=== PATIENT | female | born 1955 | race Caucasian/White ===

== ENCOUNTER → 2016-10-25 | Outpatient (CLI) | payer BC ==
[~2016-10-25] MED LIST: ALBU1AER9 INH; ASPCH81X PO; BECL0.3A INH; BNC40 PO; CHOL100010 PO; CIPR-255 PO; FLUT0.15 NAE; HYDR-5688 PO; LANS30CA12 PO; NTRSL3 UT; NTRSLP4 SL; PRT40 PO; SERT-234 PO
[2016-10-25 11:53] LABS: BASO % 0.5 %; BASO ABS # 0.03 K/uL (0-0.2); COMPLETE YES; EOS % 2.2 %; IG% 0.2 %; LYMPH % 27.2 %; LYMPH ABS # 1.59 K/uL (1.2-3.4); MEAN CELL VOLUME 92.6 fL (80-100); MEAN CORPUSCULAR HEMOGLOBIN 31.6 pg (25-34); MEAN CORPUSCULAR HGB CONC 34.1 g/dl (32-36); MEAN PLATELET VOLUME 10.3 fL (7.4-10.4); MONO % 6.2 %; NEUT % 63.7 %; PLATELET COUNT 243 K/uL (130-400); RED BLOOD COUNT 4.21 M/uL (4.2-5.4); WHITE BLOOD COUNT 5.84 K/uL (4.8-10.8)
[2016-10-25 12:09] LABS: ALT/SGPT 39 U/L (12-78); AST/SGOT 28 U/L (15-37); BLOOD UREA NITROGEN 17 mg/dl (7-18); BUN/CREATININE RATIO 15.4 (10-20); CALCIUM 8.8 mg/dl (8.5-10.1); CARBON DIOXIDE 21 mmol/L (21-32); CHLORIDE 110 mmol/L (98-107); GLUCOSE 100 mg/dl (70-99); POTASSIUM 4.3 mmol/L (3.5-5.1); SODIUM 141 mmol/L (136-145)
[2016-10-25 12:11] LABS: ALKALINE PHOSPHATASE 108 U/L (45-117)
== END | disposition home or self-care (01) ==
LOC: C.LAB1850 10:36
PROVIDERS: ATTEND Surgery
DX: Z01.812 Encounter for preprocedural laboratory examination (principal); K85.90 Acute pancreatitis without necrosis or infection, unspecified; K82.8 Other specified diseases of gallbladder

== ENCOUNTER 2016-11-01 07:50 | Inpatient (IN) | payer BC ==
[2016-10-25 14:02] VITALS: BMI 29.0
[~2016-11-01] VITALS: Ht 160 cm; Wt 76.4 kg
[2016-11-01] VITALS (8 sets, daily range): BP systolic 116–166; BP diastolic 72–88; PULSE 66–85; TEMP 36.3–36.8; O2SAT 93–98; Ht 160 cm; Wt 76.4 kg
[~2016-11-01 07:50] MED LIST changes: -CIPR-255 PO; +CIPROFLOXACIN / D5W 400 MG IV SCH; -HYDR-5688 PO; +LACTATED RINGER'S 1000ML 1,000 ML IV SCH; -NTRSLP4 SL; -PRT40 PO
--- NOTE | 2016-11-01 08:03 | History & Physical Bridge Note ---
H&P Re-Evaluation Bridge Note: I have examined the patient, reviewed the History & Physical and in the interval since the performance of the History & Physical I have noted the following changes of clinical significance: No changes noted
[2016-11-01] MEDS ORDERED: FENTANYL CITRATE INJ 50 MCG/1 ML 2 ML VIAL ONE ×3 (09:28→12:09)
[2016-11-01] MEDS ORDERED: ONDANSETRON INJ 2 MG/ML 2 ML VIAL ONE (09:28)
[2016-11-01] MEDS ORDERED: MIDAZOLAM HCL 1 MG/ML 2ML VIAL ONE (09:28)
[2016-11-01] MEDS ORDERED: ROCURONIUM BROMIDE 10 MG/ML 5 ML VIAL ONE (09:28)
[2016-11-01] MEDS ORDERED: LIDOCAINE HCL 2% 2 ML VIAL (20MG/ML) ONE (09:28)
[2016-11-01] MEDS ORDERED: DEXAMETHASONE SOD INJ 4 MG/ML VIAL ONE (09:28)
[2016-11-01] MEDS ORDERED: PROPOFOL IV EMULSION 10 MG/ML 20 ML VIAL IV ONE (09:28)
[2016-11-01] MEDS ORDERED: BUPIVACAINE 0.5 % 5 MG/1 ML MPF 30ML VIAL ONE (09:47)
[2016-11-01] MEDS ORDERED: EpHEDrine SULFATE 50MG/5ML SYR ONE (10:30)
[2016-11-01] MEDS ORDERED: NEOSTIGMINE METHYLSULFATE 5 MG/5 ML SYR ONE (11:01)
[2016-11-01] MEDS ORDERED: GLYCOPYRROLATE INJ 0.2 MG/ML VIAL ONE (11:01)
--- NOTE | 2016-11-01 11:10 | [facility] Post Operative Brief Note ---
Immediate Operative Summary Operative Date Nov 01, 2016. Pre-Operative Diagnosis Pancreatitis; sludge in gallbladder Post-Operative Diagnosis Same as preop, including chronic cholecystitis, adhesions Procedure(s) Performed Laparoscopic cholecystectomy Surgeon Dr. Amador Mending Carrier Surgeon(s) Omid Cleary PA-C Estimated Blood Loss 30 cc Findings adhesions of omentum to gb and liver Specimens A: gallbladder Drains #[address] Rd KIARA to subhepatic space Anesthesia gen Complication(s) None Disposition Recovery Room / PACU
[2016-11-01] MEDS ORDERED: HYDROCODONE/ACETAMOPHEN 5/325MG TAB PO PRN (11:15)
[2016-11-01] MEDS ORDERED: ALBUTEROL HFA 8 GM INHALER INH PRN (11:15)
[2016-11-01] MEDS ORDERED: MoRPHine SULFATE 2 MG/ML CARP IV PRN (11:15)
[2016-11-01] MEDS ORDERED: NITROGLYCERIN 0.3 MG/1 TAB 100 TAB BTL UT PRN (11:15)
[2016-11-01] MEDS ORDERED: PROMETHAZINE HCL INJ 25 MG in SODIUM CHLORIDE 0.9% 50ML 50 ML IV PRN (11:15)
[2016-11-01] MEDS ORDERED: ONDANSETRON INJ 2 MG/ML 2 ML VIAL IV PRN ×2 (11:15→12:15)
--- NOTE | 2016-11-01 11:37 | OPERATIVE REPORT ---
DATE OF OPERATION: 11/01/2016 NAME OF OPERATION: Laparoscopic cholecystectomy. PREOPERATIVE DIAGNOSIS: Gallstone pancreatitis. POSTOPERATIVE DIAGNOSIS: Same, with chronic cholecystitis. STAFF SURGEON: Dr. Amador. PARTS FABRICATOR: Alan Aguilar PA-C. PROCEDURE: The patient was brought in the operating room and placed on the operating room table in a supine position. Her abdomen was prepped and draped in usual fashion. Pneumatic stockings and orogastric tube were placed. 0.5% plain Marcaine was used to anesthetize all incisions. Incision was made above the umbilicus, carrying dissection down to the fascia, placing a Veress needle producing a pneumoperitoneum. An 11 mm port was placed at the umbilicus and then under visualization, three 5 mm ports placed, 1 cephalad and 2 laterally. Under visualization the gallbladder was grasped. There were adhesions of the omentum to the gallbladder and to the liver. These were taken down both bluntly and sharply. Gallbladder was aspirated of bile. Dissection was carried out at the nina hepatis. The patient did have significant adhesions of the wall of the gallbladder to the liver, other than just the liver bed, in the lateral area. The cystic duct was identified, clipped and transected. The cystic artery identified, clipped and transected and then the gallbladder dissected away from the liver bed. She did show evidence of chronic scarring. The gallbladder was placed into an Endobag and then removed through the umbilical site. The patient did have some bleeding from the liver bed and areas of adhesions. These were gently cauterized and after irrigation and hemostasis, a 15 round Al-Mendez drain was placed through the lateral 5 mm port into the subhepatic space, secured to the skin using 3-0 nylon suture. All ports were then removed. The fascia at the umbilicus closed using interrupted 0 Vicryl suture. Skin reapproximated using 4-0 nylon suture. The patient was transferred to the recovery room in stable condition. I attest to the content of the Intraoperative Record and any orders documented therein. Any exceptio ns are noted below.
--- NOTE | 2016-11-01 11:49 | Discharge Instructions ---
Discharge Instructions Admission Reason for Admission: Gallbladder Sludge Discharge Discharge Diagnosis / Problem: chronic cholecystitis Discharge Goals Goal(s): Decrease discomfort, Improve function, Improve disease control Activity Recommendations Activity Limitations: as noted below Lifting Limitations: no more than 10 pounds Exercise/Sports Limitations: until after follow-up appointment May Resume Sexual Activity: when tolerated Shower/Bathe: tomorrow (may shower) Driving or Machine Use: resume 3 days after discharge SPECIAL CARE INSTRUCTIONS: * Cover incisions and change daily for comfort/drainage. * Empty drain 2-3 times per day and record. * May use ibuprofen for pain as tolerated. * Expect some swelling and bruising. Call your doctor if: * Temperature above 101 degrees * Pain not relieved by pain medicine ordered * There is increased drainage or redness from any incision * You have any unanswered questions or concerns [phone]. FOLLOW UP VISIT: If not already scheduled, please call the office for a follow-up visit. for next Sun/ or Sun- drain removal OFFICE PHONE NUMBER: Dr. Amador Office . Current Hospital Diet Patient's current hospital diet: Regular Diet Discharge Diet Recommended Diet: Regular Diet Procedures Procedures Performed: Laparoscopic cholecystectomy Pending Studies Studies pending at discharge: no Laboratory Results Lipid Panel Test 08/04/16 00:10 Range/Units Triglycerides Level 206 H 0-150 mg/dl Medical Emergencies . Who to Call and When: Medical Emergencies: If at any time you feel your situation is an emergency, please call 911 immediately. . Non-Emergent Contact Non-Emergency issues call your: Primary Care Provider, Surgeon . "Provider Documentation" section prepared by Emiliano Amador. VTE Core Measure Inpt VTE Proph given/why not?: SCD's
[2016-11-01] MEDS ORDERED: HYDR-5688 PO (11:50)
[2016-11-01] MEDS ORDERED: CIPR-255 PO (11:50)
[2016-11-01] MEDS ORDERED: EpHEDrine SULFATE INJ 50 MG/ML AMP IV PRN (12:15)
[2016-11-01] MEDS ORDERED: FENTANYL CITRATE INJ 50 MCG/1 ML 2 ML VIAL IV PRN (12:15)
[2016-11-01] MEDS ORDERED: ATROPINE SULFATE 0.1 MG/ML 5ML SYR IV PRN (12:15)
--- NOTE | 2016-11-01 12:33 | Anesthesiology Progress Note ---
Anesthesia Post Op Note Date & Time Nov 01, 2016 at 12:33 Vital Signs Pain Intensity: 2 Vital Signs Past 12 Hours Date Time Temp Pulse Resp B/P Pulse Ox O2 Delivery O2 Flow Rate FiO2 11/01/16 11:51 36.3 78 16 118/60 99 Nasal Cannula 2 11/01/16 11:50 80 20 129/65 100 Mask 2 11/01/16 11:40 80 16 131/67 100 Mask 10 11/01/16 11:30 83 16 127/62 99 Mask 10 11/01/16 11:22 36.1 82 16 143/80 96 Mask 10 11/01/16 08:10 36.4 85 16 136/88 95 Room Air Notes Mental Status: alert / awake / arousable, participated in evaluation Pt Amnestic to Procedure: Yes Nausea / Vomiting: adequately controlled Pain: adequately controlled Airway Patency, RR, SpO2: stable & adequate BP & HR: stable & adequate Hydration State: stable & adequate Anesthetic Complications: no major complications apparent
[2016-11-01] MEDS: LACTATED RINGER'S 1000ML 1,000 ML IV SCH (13:57)
[2016-11-01] MEDS: MoRPHine SULFATE 4 MG/ML 1 ML CARP\\VIAL IV PRN ×3 (13:57→23:22)
[2016-11-01] MEDS ORDERED: IV FLUIDS COMPLETED PRN (14:15)
[2016-11-01 16:18] LABS: HEMATOCRIT 35.7 % (37-47)
--- NOTE | 2016-11-01 16:43 | Progress Note ---
Subjective Date of Service: Nov 01, 2016. Subjective Pt evaluation today including: conversation w/ patient, physical exam, chart review, lab review, review of inpatient medication list seen for post op med management hx CAD, HTN, hyperlipid, EtOH abuse ("i'm a beer drinker though") notes only c/o at this time is abdominal pain in area from surgery - but tolerable, pain meds help. no cp no sob. no other active complaints Problem List Medical Problems: (1) Pancreatitis Status: Acute (2) Precordial chest pain Status: Acute (3) Precordial chest pain Status: Acute (4) Unstable angina Status: Acute Review of Systems ros otherwise negative except for as above Objective Vital Signs Date Time Temp Pulse Resp B/P Pulse Ox O2 Delivery O2 Flow Rate FiO2 11/01/16 16:04 36.6 74 18 116/73 93 Nasal Cannula 2.0 11/01/16 15:03 36.4 70 18 123/76 94 Nasal Cannula 2.0 11/01/16 14:05 73 20 134/82 98 Nasal Cannula 2.0 11/01/16 13:35 36.3 79 19 117/72 95 Nasal Cannula 2.0 11/01/16 13:05 96 Nasal Cannula 2.0 11/01/16 13:05 36.4 73 16 119/74 96 Nasal Cannula 2.0 11/01/16 13:05 Nasal Cannula 2.0 11/01/16 12:50 36.3 75 18 120/72 97 Nasal Cannula 2 11/01/16 12:40 36.3 74 16 119/71 97 Nasal Cannula 2 11/01/16 12:30 36.3 89 16 101/70 96 Nasal Cannula 2 11/01/16 12:20 36.3 79 16 109/41 98 Nasal Cannula 2 11/01/16 12:10 36.3 80 16 109/41 100 Nasal Cannula 2 11/01/16 12:00 36.3 80 16 123/67 100 Nasal Cannula 2 11/01/16 11:51 36.3 78 16 118/60 99 Nasal Cannula 2 11/01/16 11:50 80 20 129/65 100 Mask 2 11/01/16 11:40 80 16 131/67 100 Mask 10 11/01/16 11:30 83 16 127/62 99 Mask 10 11/01/16 11:22 36.1 82 16 143/80 96 Mask 10 11/01/16 08:10 36.4 85 16 136/88 95 Room Air Physical Exam General Appearance: no apparent distress Eyes: EOMI ENT: hearing grossly normal Neck: trachea midline Respiratory/Chest: no respiratory distress, no accessory muscle use Extremities: normal range of motion Neurologic/Psychiatric: dancer or choreographer II-XII nml as tested, alert, normal mood/affect Skin: normal color, warm/dry Laboratory Results Last 24 Hours Test 11/01/16 16:10 Hemoglobin 12.4 g/dL Hematocrit 35.7 % Assessment and Plan coronary artery disease, HTN, hyperlipidemia -all stable, continue home med regimen. not on statin due to intolerable side effects EtOH abuse -was fairly defensive pre-emptively about EtOH consumption - even before i asked - she was very forward with talking about how the ER doc during her pancreatitis admission was too quick to blame EtOH. was unable to delve further into consumption without risking destroying rapport. that said, nothing appears acutely decompensated, and likely will be out of hospital before DT's would be an issue. will need to continue to follow clinically, however DVT proph -heparin SQ
[2016-11-01] MEDS ORDERED: CIPROFLOXACIN / D5W 400 MG in PREMIXED IN D5W 200 ML IV SCH (21:00)
[2016-11-02 00:25] VITALS: BP 107/63
--- NOTE | 2016-11-02 05:44 | Surgery Progress Note ---
Surgery Progress Note Date of Service Nov 02, 2016. Subjective taking some IV pain meds, itching- thinks may be cipro Objective Vital Signs: Date Time Temp Pulse Resp B/P Pulse Ox O2 Delivery O2 Flow Rate FiO2 11/02/16 00:25 107/63 11/01/16 23:30 Room Air 11/01/16 22:52 36.7 66 16 166/78 93 Room Air 11/01/16 19:24 36.8 75 16 131/72 93 Room Air 11/01/16 16:04 36.6 74 18 116/73 93 Nasal Cannula 2.0 11/01/16 15:30 Room Air 11/01/16 15:03 36.4 70 18 123/76 94 Nasal Cannula 2.0 11/01/16 14:05 73 20 134/82 98 Nasal Cannula 2.0 11/01/16 13:35 36.3 79 19 117/72 95 Nasal Cannula 2.0 11/01/16 13:05 96 Nasal Cannula 2.0 11/01/16 13:05 36.4 73 16 119/74 96 Nasal Cannula 2.0 11/01/16 13:05 Nasal Cannula 2.0 11/01/16 12:50 36.3 75 18 120/72 97 Nasal Cannula 2 11/01/16 12:40 36.3 74 16 119/71 97 Nasal Cannula 2 11/01/16 12:30 36.3 89 16 101/70 96 Nasal Cannula 2 11/01/16 12:20 36.3 79 16 109/41 98 Nasal Cannula 2 11/01/16 12:10 36.3 80 16 109/41 100 Nasal Cannula 2 11/01/16 12:00 36.3 80 16 123/67 100 Nasal Cannula 2 11/01/16 11:51 36.3 78 16 118/60 99 Nasal Cannula 2 11/01/16 11:50 80 20 129/65 100 Mask 2 11/01/16 11:40 80 16 131/67 100 Mask 10 11/01/16 11:30 83 16 127/62 99 Mask 10 11/01/16 11:22 36.1 82 16 143/80 96 Mask 10 11/01/16 08:10 36.4 85 16 136/88 95 Room Air General Appearance: no apparent distress Respiratory/Chest: no respiratory distress Abdomen: soft (drain- serosang) Incision(s): dry Laboratory Results: Results Past 24 Hours Test 11/01/16 16:10 11/02/16 05:00 Range/Units Hemoglobin 12.4 12.0-16.0 g/dL Hematocrit 35.7 37-47 % Assessment & Plan 11/02/16- s/p lap katelyn- h/o pancreatitis- had signif adhesions- drain in place d/c cipro, cont other IV meds
[2016-11-02 05:53] LABS: HEMATOCRIT 35.5 % (37-47); MEAN CELL VOLUME 92.7 fL (80-100); MEAN CORPUSCULAR HEMOGLOBIN 31.3 pg (25-34); MEAN CORPUSCULAR HGB CONC 33.8 g/dl (32-36); MEAN PLATELET VOLUME 10.2 fL (7.4-10.4); PLATELET COUNT 198 K/uL (130-400); RED BLOOD COUNT 3.83 M/uL (4.2-5.4); WHITE BLOOD COUNT 6.91 K/uL (4.8-10.8)
[2016-11-02 06:17] LABS: BLOOD UREA NITROGEN 9 mg/dl (7-18); BUN/CREATININE RATIO 9.2 (10-20); CARBON DIOXIDE 29 mmol/L (21-32); CHLORIDE 105 mmol/L (98-107); CREATININE 0.95 mg/dl (0.60-1.20); GLUCOSE 82 mg/dl (70-99); POTASSIUM 3.6 mmol/L (3.5-5.1); SODIUM 142 mmol/L (136-145)
[2016-11-02 06:18] LABS: ALT/SGPT 45 U/L (12-78); AST/SGOT 43 U/L (15-37); CALCIUM 8.4 mg/dl (8.5-10.1)
[2016-11-02 06:20] LABS: ALB/GLOB RATIO 1.1 (0.9-2); ALKALINE PHOSPHATASE 81 U/L (45-117)
[2016-11-02] MEDS: LACTATED RINGER'S 1000ML 1,000 ML IV SCH (06:31)
[2016-11-02] MEDS: MoRPHine SULFATE 4 MG/ML 1 ML CARP\\VIAL IV PRN (06:31)
--- NOTE | 2016-11-02 07:48 | Anesthesiology Progress Note ---
Anesthesia Post Op Note Date & Time Nov 02, 2016 at 07:48 Vital Signs Vital Signs Past 12 Hours Date Time Temp Pulse Resp B/P Pulse Ox O2 Delivery O2 Flow Rate FiO2 11/02/16 00:25 107/63 11/01/16 23:30 Room Air 11/01/16 22:52 36.7 66 16 166/78 93 Room Air Notes Mental Status: alert / awake / arousable, participated in evaluation Pt Amnestic to Procedure: Yes Nausea / Vomiting: adequately controlled Pain: adequately controlled Airway Patency, RR, SpO2: stable & adequate BP & HR: stable & adequate Hydration State: stable & adequate Anesthetic Complications: no major complications apparent
[2016-11-02 08:09] VITALS: BP 123/75; PULSE 64; TEMP 36.7; O2SAT 94
--- NOTE | 2016-11-02 08:51 | Hospitalist Progress Note ---
Hospitalist Progress Note Date of Service Nov 02, 2016. (Ana Xavier, BECKY) Subjective Pt evaluation today including: conversation w/ patient, physical exam, chart review, lab review, review of studies, review of inpatient medication list Pain: Minimal PO Intake: Good Voiding: no voiding problems The patient was seen and examined this morning. Pt reports some pain with movement near the incision in RUQ s/p lap katelyn. She is tolerating a diet without difficulty, - flatus, no bowel movement yet. Discussion regarding mobility was encouraged to help bowels. Pt reports eating well balanced diet, drinks 2 beers daily, denies having any withdrawal symptoms such as shaking, mitchell , nausea. Otherwise is anticipating dc home tomorrow. All Other Systems: Reviewed and Negative (other than listed per HPI) (Ana Xavier, BECKY) Objective Vital Signs Date Time Temp Pulse Resp B/P Pulse Ox O2 Delivery O2 Flow Rate FiO2 11/02/16 08:09 36.7 64 19 123/75 94 Room Air 11/02/16 00:25 107/63 11/01/16 23:30 Room Air 11/01/16 22:52 36.7 66 16 166/78 93 Room Air 11/01/16 19:24 36.8 75 16 131/72 93 Room Air 11/01/16 16:04 36.6 74 18 116/73 93 Nasal Cannula 2.0 11/01/16 15:30 Room Air 11/01/16 15:03 36.4 70 18 123/76 94 Nasal Cannula 2.0 11/01/16 14:05 73 20 134/82 98 Nasal Cannula 2.0 11/01/16 13:35 36.3 79 19 117/72 95 Nasal Cannula 2.0 11/01/16 13:05 96 Nasal Cannula 2.0 11/01/16 13:05 36.4 73 16 119/74 96 Nasal Cannula 2.0 11/01/16 13:05 Nasal Cannula 2.0 11/01/16 12:50 36.3 75 18 120/72 97 Nasal Cannula 2 11/01/16 12:40 36.3 74 16 119/71 97 Nasal Cannula 2 11/01/16 12:30 36.3 89 16 101/70 96 Nasal Cannula 2 11/01/16 12:20 36.3 79 16 109/41 98 Nasal Cannula 2 11/01/16 12:10 36.3 80 16 109/41 100 Nasal Cannula 2 11/01/16 12:00 36.3 80 16 123/67 100 Nasal Cannula 2 11/01/16 11:51 36.3 78 16 118/60 99 Nasal Cannula 2 11/01/16 11:50 80 20 129/65 100 Mask 2 11/01/16 11:40 80 16 131/67 100 Mask 10 11/01/16 11:30 83 16 127/62 99 Mask 10 11/01/16 11:22 36.1 82 16 143/80 96 Mask 10 (Ana Xavier PA-C) Physical Exam General Appearance: WD/WN, no apparent distress, + obese Eyes: PERRL, EOMI ENT: hearing grossly normal, pharynx normal Neck: supple, no JVD Respiratory/Chest: lungs clear, no respiratory distress, no accessory muscle use, + pertinent finding (+ bilateral mastectomy) Cardiovascular: regular rate, rhythm, no murmur Abdomen: + pertinent finding (RUQ incision with KIARA drain in place out ~50 mL this morning, + pain with palpation, no rebound tenderness or guarding) Extremities: non-tender, no pedal edema, no calf tenderness Neurologic/Psychiatric: alert, normal mood/affect, oriented x 3 Skin: normal color, warm/dry (Ana Xavier PA-C) Laboratory Results Last 24 Hours Test 11/01/16 16:10 11/02/16 05:09 Hemoglobin 12.4 g/dL 12.0 g/dL Hematocrit 35.7 % 35.5 % White Blood Count 6.91 K/uL Red Blood Count 3.83 M/uL Mean Corpuscular Volume 92.7 fL Mean Corpuscular Hemoglobin 31.3 pg Mean Corpuscular Hemoglobin Concent 33.8 g/dl RDW Standard Deviation 45.8 fL RDW Coefficient of Variation 13.6 % Platelet Count 198 K/uL Mean Platelet Volume 10.2 fL Sodium Level 142 mmol/L Potassium Level 3.6 mmol/L Chloride Level 105 mmol/L Carbon Dioxide Level 29 mmol/L Anion Gap 8.0 mmol/L Blood Urea Nitrogen 9 mg/dl Creatinine 0.95 mg/dl Est Creatinine Clear Calc Drug Dose 61.6 ml/min Estimated GFR () 75.5 Estimated GFR (Non- 65.1 BUN/Creatinine Ratio 9.2 Random Glucose 82 mg/dl Calcium Level 8.4 mg/dl Total Bilirubin 0.5 mg/dl Direct Bilirubin < 0.1 mg/dl Aspartate Amino Transf (AST/SGOT) 43 U/L Alanine Aminotransferase (ALT/SGPT) 45 U/L Alkaline Phosphatase 81 U/L Total Protein 6.2 gm/dl Albumin 3.2 gm/dl Globulin 3.0 gm/dl Albumin/Globulin Ratio 1.1 (Ana Xavier, BECKY) Assessment and Plan 60 yo F admitted RUQ pain now s/p lap katelyn for sludge in gallbladder on with hx of pancreatitis likely secondary to EtOh consumption S/p lap katelyn on 11/02/16 - was initially on cipro but was stopped due to developing itching - + incisional pain doing well with percocet, encouraged switch to oral medications. - Ambulation encouraged, per pt- surg plans to dc home tomorrow coronary artery disease, HTN, hyperlipidemia -all stable, continue home med regimen - not on statin due to intolerable side effects EtOH abuse -Pt states drinks 2 beers daily for many years, she is defensive stating her mother diet from pancreatitis but did not consume etoh, and how a sister also suffered from pancreatitis but drank etoh. She denies any signs of DT, last drink was prior to admission. DVT proph -heparin SQ CODE STATUS: FULL CODE Disposition: From home, d/c per surgery likely within 24 hours. (Ana Xavier PA-C) PA Physician Supervision Note: I interviewed and examined the patient. Discussed with Ana Xavier PAC and agree with findings and plan as documented in the note. Any exceptions or clarifications are listed here: None Post op laparoscopic katelyn, doing well some low blood pressure but was given Benicar this am vs show lower bp, will consider holding med tomorrow if low abd is soft, hypoactive BS, non tender supportive care post op lap katelyn watch for alcohol withdrawal Documented By: Dandre Mcdonald (Dandre Mcdonald M.D.)
[2016-11-02] MEDS: ASPIRIN 81 MG ECTAB PO SCH (08:59)
[2016-11-02] MEDS: SERTRALINE HCL 100 MG TAB PO SCH (08:59)
[2016-11-02] MEDS: OLMESARTAN MEDOXOMIL 40 MG TAB PO SCH (09:00)
[2016-11-02] MEDS: PANTOprazole SOD 40 MG TAB PO SCH (09:00)
[2016-11-02] MEDS: HYDROCODONE/ACETAMOPHEN 5/325MG TAB PO PRN ×3 (09:04→21:28)
[2016-11-02 10:54] VITALS: BP 93/60; PULSE 70; TEMP 36.8; O2SAT 93
[2016-11-02 13:37] VITALS: BP_SYST 68; PULSE 70
[2016-11-02 14:53] VITALS: BP 103/68; PULSE 67; TEMP 36.6; O2SAT 92
[2016-11-02 22:50] VITALS: BP 119/69; PULSE 78; TEMP 36.8; O2SAT 92
[2016-11-03] MEDS: LACTATED RINGER'S 1000ML 1,000 ML IV SCH (02:43)
[2016-11-03 06:57] VITALS: BP 165/87; PULSE 65; TEMP 36.5; O2SAT 95
--- NOTE | 2016-11-03 07:12 | DISCHARGE SUMMARY ---
PRINCIPAL DIAGNOSIS: Chronic cholecystitis. PROCEDURES: The patient underwent laparoscopic cholecystectomy with drain placement. HISTORY OF PRESENT ILLNESS: The patient is a 60-year-old female who had prior pancreatitis which was felt secondary to gallbladder sludge. She did undergo endoscopic ultrasound by Dr. Mando Messer which did show sludge in the gallbladder. HOSPITAL COURSE: The patient was brought into the hospital on 11/01/2016 where she underwent elective laparoscopic cholecystectomy. She had pretty relatively severe chronic cholecystitis with adhesions. I did place a drain and she will be discharged home with the drain in place to be discontinued next week.
[2016-11-03] MEDS: HYDROCODONE/ACETAMOPHEN 5/325MG TAB PO PRN (07:47)
[2016-11-03] MEDS: PANTOprazole SOD 40 MG TAB PO SCH (07:47)
[2016-11-03] MEDS: SERTRALINE HCL 100 MG TAB PO SCH (07:48)
[2016-11-03] MEDS: OLMESARTAN MEDOXOMIL 40 MG TAB PO SCH (07:48)
[2016-11-03] MEDS: ASPIRIN 81 MG ECTAB PO SCH (07:48)
[2016-11-03 09:43] VITALS: BP 165/87; PULSE 65; TEMP 36.5; O2SAT 95
[2016-11-06] MEDS ORDERED: HYDR-5688 PO (07:34)
[2016-11-06] MEDS ORDERED: CIPR-255 PO (07:34)
--- NOTE | 2016-11-06 10:13 | EDITING REQUIRED CODING QUERY ---
CODING QUERY To promote full compliance with coding requirements relating to patient care, provider participation is requested in all cases of support analyst uncertainty. Please assist us with the question(s) below: Coding Question(s): Please specify below, in your clinical opinion, to clarify the type of pancreatitis that was treated. ( ) Acute Biliary Pancreatitis ( ) Acute Pancreatitis - Alcohol induced ( ) Both Acute Biliary and Alcohol induced Pancreatitis ( ) Chronic Pancreatitis - Alcohol induced ( ) Acute Biliary Pancreatitis and Chronic Alcohol Induced Pancreatitis ( ) Chronic Pancreatitis - Specify ( x ) Other: Specify____patient had a h/o prior biliary pancreatitis- not this adm Physician's Response(s): Thank you Heide Rodriguez Principal Diagnosis: "_that condition established after study, to be chiefly responsible for occasioning the admission of the patient to the hospital for care." Co-Existing Principal Diagnosis: "_when two or more diagnoses equally meet the criteria for principal diagnosis as determined by the circumstances of admission, diagnostic work up, and/or therapy provided, and the Alphabetic Index, Tabular List, or another coding guideline does not provide sequencing direction, any one of the diagnoses may be sequenced first." "When the physician has documented what appears to be a current diagnosis in the body of the record, but has not included the diagnosis in the final diagnostic statement, the physician should be asked whether the diagnosis should be added." (Source Coding [facility] 2 QTR90. p3-4)
== END 2016-11-03 10:12 | disposition home or self-care (01) | DRG 419 ==
LOC: ENRESERVDT → ENRESERVTM → C.ACU 07:50 → C.MSW 11:15 → OBSVTOIN 11-02 05:45
PROVIDERS: ADMIT Surgery; ATTEND Surgery
PROC: 0FT44ZZ Resection of Gallbladder, Percutaneous Endoscopic Approach (ICD-10-PCS; principal; 2016-11-01 09:40)
DX: K81.1 Chronic cholecystitis (principal); K82.8 Other specified diseases of gallbladder; K66.0 Peritoneal adhesions (postprocedural) (postinfection); F10.10 Alcohol abuse, uncomplicated; J45.909 Unspecified asthma, uncomplicated; I11.9 Hypertensive heart disease without heart failure; I25.10 Atherosclerotic heart disease of native coronary artery without angina pectoris; K21.9 Gastro-esophageal reflux disease without esophagitis; F32.9 Major depressive disorder, single episode, unspecified; E66.9 Obesity, unspecified; Z51.81 Encounter for therapeutic drug level monitoring; Z79.899 Other long term (current) drug therapy; Z79.82 Long term (current) use of aspirin; Z87.19 Personal history of other diseases of the digestive system; Z68.29 Body mass index [BMI] 29.0-29.9, adult; Z95.1 Presence of aortocoronary bypass graft; Z85.3 Personal history of malignant neoplasm of breast; Z90.11 Acquired absence of right breast and nipple; Z90.12 Acquired absence of left breast and nipple; Z87.891 Personal history of nicotine dependence; Z83.3 Family history of diabetes mellitus; Z82.49 Family history of ischemic heart disease and other diseases of the circulatory system

== ENCOUNTER → 2016-12-18 | Day surgery (SDC) | payer BC, OTHER ==
[2016-11-06 07:35] VITALS: Ht 160 cm; Wt 76.4 kg
[~2016-12-18] VITALS: Ht 160 cm; Wt 76.4 kg
[~2016-12-18] MED LIST changes: +500ML BSS 0.3ML EPI 1:1000PF IRRIG ONE; +ACETAMINOPHEN 325 MG TAB ONE; +ACETAMINOPHEN 325 MG TAB PO PRN; +AMVISC PLUS 0.8ML SYRINGE INT OCU ONE; +ATROPINE SULFATE 0.1 MG/ML 5ML SYR IV PRN; +BRIMONIDINE TART 0.2% OP SOLN PER DROP CHARGE ONE; +BSS FLUSH ONE; +CIPR-255 PO; -CIPROFLOXACIN / D5W 400 MG IV SCH; +CYCLOPENTOLATE HCL 1% OP SOLN PER DROP CHARGE OPL SCH; +ENDOCOAT 0.85ML SYRINGE INT OCU ONE; +EpINEphrine INJ 1MG/ML AMP 1 MG/ML AMP ONE; +HYDR-5688 PO; +KETOROLAC 0.5% OP SOLN PER DROP CHARGE OPL SCH; -LACTATED RINGER'S 1000ML 1,000 ML IV SCH; +LACTATED RINGER'S 1000ML 500 ML IV SCH; +LIDOCAINE 4% OP SOLN DROP CHARGE ONE; +LIDOCAINE 4% OP SOLN DROP CHARGE OPL SCH; +LIDOCAINE HCL 1% MPF 2 ML VIAL ONE; +MIDAZOLAM HCL 1 MG/ML 2ML VIAL ONE; +MOXIFLOXACIN OPH SOLN PER DROP CHARGE ONE; +MOXIFLOXACIN OPH SOLN PER DROP CHARGE OPL SCH; +PHENYLEPHRINE HCL 2.5% OP SOLN PER DROP CHARGE OPL SCH; +POVIDONE-IODINE OP SOLN 30 ML BTL ONE; +PROPARACAINE 0.5% OP SOLN PER DROP CHARGE OPL SCH; +TOBRAMYCIN/DEXAMETHASONE OPH OINT PER APPLN CHARGE ONE; +TROPICAMIDE 1% OP SOLN PER DROP CHARGE OPL SCH
[2016-12-18] MEDS: PHENYLEPHRINE HCL 2.5% OP SOLN PER DROP CHARGE OPL SCH ×2 (07:35→07:40)
[2016-12-18] MEDS: TROPICAMIDE 1% OP SOLN PER DROP CHARGE OPL SCH ×2 (07:36→07:41)
[2016-12-18] MEDS: CYCLOPENTOLATE HCL 1% OP SOLN PER DROP CHARGE OPL SCH ×2 (07:37→07:42)
[2016-12-18] MEDS: KETOROLAC 0.5% OP SOLN PER DROP CHARGE OPL SCH ×2 (07:38→07:43)
[2016-12-18] MEDS: MOXIFLOXACIN OPH SOLN PER DROP CHARGE OPL SCH ×2 (07:39→08:48)
--- NOTE | 2016-12-18 09:04 | Discharge Instructions-SurgCtr ---
Discharge Instructions Date of Service Dec 18, 2016. Visit Reason for Visit: Cataract Left Eye Discharge Discharge Diagnosis / Problem: cataract left eye Discharge Goals Goal(s): Improve function Activity Recommendations Activity Limitations: per Instructions/Follow-up section Lifting Limitations: no more than 5 pounds Anesthesia . Post Anesthesia Instructions: If you have had General Anesthesia or IV Sedation: * Do not drive today. * Resume driving when surgeon permits. * Do not make important decisions or sign legal documents today. * Call surgeon for: 1. Temperature elevations greater than 101 degrees F. 2. Uncontrollable pain. 3. Excessive bleeding. 4. Persistent nausea and vomiting. 5. Medication intolerance (nausea, vomiting or rash). * For nausea and vomiting use only clear liquids such as: tea, soda, bouillon until nausea subsides, then gradually increase diet as tolerated. * If you have any concerns or questions, call your surgeon's office. If physician is unavailable and it is an emergency, call 911 or go to the nearest emergency room. . Instructions / Follow-Up Instructions / Follow-Up ACTIVITY RECOMMENDATIONS: * Light activities * You may walk outside, read, watch television. * Mild irritation and blurred vision are common for the first few days, redness around the white part of the eye is common. MEDICATIONS: Resume previous medications unless instructed otherwise by your surgeon. Eye drops (today and tomorrow): Cipro - one drop in operative eye every 2 hours while awake Prednisolone 1% - one drop in operative eye every 2 hours while awake Bromfenac - one drop in operative eye once daily SPECIAL CARE INSTRUCTIONS: * If any problems or concerns, please call Dr. Molina's office at . * Keep plastic shield taped over eye to sleep at night. * Keep plastic shield taped over eye except to administer eye drops. * Keep plastic shield on until office visit the following day. FOLLOW UP VISIT: Follow-up with Dr. Molina in the [place] office as scheduled. If not already scheduled, please call the office at . Diet Recommendations Home Diet: resume previous diet Procedures Procedures Performed: left cataract phacoemulsification with intraocular toric lens implant Pending Studies Studies pending at discharge: no Medical Emergencies . Who to Call and When: Medical Emergencies: If at any time you feel your situation is an emergency, please call 911 immediately. . Non-Emergent Contact Non-Emergency issues call your: Hadoop Java Developer . . "Provider Documentation" section prepared by Jay Molian.
--- NOTE | 2016-12-18 09:04 | [facility] Post Operative Brief Note ---
Immediate Operative Summary Operative Date Dec 18, 2016. Pre-Operative Diagnosis Cataract left eye Post-Operative Diagnosis same Procedure(s) Performed left cataract phacoemulsification with intraocular toric lens implant Surgeon Dr. Molina Paginator Surgeon(s) none Estimated Blood Loss 0 Findings cataract left eye Specimens same Complication(s) None Disposition Recovery Room / PACU
[2016-12-18 09:29] VITALS: BP 128/79; PULSE 65; TEMP 36.7; O2SAT 100
--- NOTE | 2016-12-18 09:37 | Anesthesia Progress Nt - [facility] ---
Anesthesia Post Op Note Date & Time Dec 18, 2016 at 09:36 Vital Signs Pain Intensity: 3.0 Vital Signs Past 12 Hours Date Time Temp Pulse Resp B/P Pulse Ox O2 Delivery O2 Flow Rate FiO2 12/18/16 09:29 36.7 65 18 128/79 100 Room Air 12/18/16 09:04 36.2 63 14 163/91 98 Room Air 12/18/16 07:29 36.5 66 20 168/103 100 Room Air Notes Mental Status: alert / awake / arousable, participated in evaluation Pt Amnestic to Procedure: Yes Nausea / Vomiting: adequately controlled Pain: adequately controlled Airway Patency, RR, SpO2: stable & adequate BP & HR: stable & adequate Hydration State: stable & adequate Anesthetic Complications: no major complications apparent
--- NOTE | 2016-12-18 11:01 | OPERATIVE REPORT ---
DATE OF OPERATION: 12/18/2016 PREOPERATIVE DIAGNOSES: Cataract and astigmatism, left eye. POSTOPERATIVE DIAGNOSES: Same. PROCEDURE PERFORMED: Phacoemulsification cataract extraction with Toric intraocular lens placement, left eye. SURGEON: Dr. Molina. COMPLICATIONS: None. ESTIMATED BLOOD LOSS: None. ANESTHESIA: Topical with sedation. OPERATION AND FINDINGS: After informed consent was obtained in the holding area the patient was wheeled back to the Operating Room where cardiac monitoring leads and oxygen by nasal cannula was administered by Anesthesia. Gentle IV sedation was given, and the patient's left eye was prepped and draped in the usual sterile fashion. A wire lid speculum was placed into the left eye and the operating microscope was swung into position. Using 0.12 forceps and a Supersharp blade a paracentesis port was made 3 o'clock hours away from the 3 o'clock position of patient's left eye. 1% non-preserved Lidocaine was then injected into the anterior chamber for anesthesia. A 2.2 mm keratotome blade was then used to make a shelved clear corneal incision at the 3 o'clock position of left her left eye. Amvisc was injected into the anterior chamber and a cystotome and Utrata forceps were used to perform a curvilinear capsulorrhexis. BSS on a hydrodissection cannula was used to hydrodissect the lens nucleus away from the capsular bag. The phacoemulsification handpiece was then used in a stop and chop fashion to remove the lens nucleus. The irrigation and aspiration handpiece was then used to remove the residual cortical material. Amvisc was injected into the capsular bag and anterior chamber and a EVON ZCT 150 21.5 Diopter intraocular lens was injected into the capsular bag. Irrigation and aspiration handpiece was used to remove the residual viscoelastic material. The wounds were hydrated and noted to be watertight. The wire lid speculum was removed from the eye. Vigamox, Brimonidine, and TobraDex ointment were placed on the eye and it was shielded. It should be noted that EndoCoat was used during the case to protect the cornea endothelium. At the time of lens placement, the lens was aligned with escobedo made in preop along the 5 degree meridian of the patient's left eye. DISPOSITION: The patient tolerated the procedure well and was wheeled to the post anesthesia care unit in stable condition. I attest to the content of the Intraoperative Record and any orders documented therein. Any exceptions are noted below. I attest to the content of the Intraoperative Record and any orders documented therein. Any exceptions are noted below. CHIP
== END | disposition home or self-care (01) ==
LOC: X.SURG 06:46
PROVIDERS: ATTEND Ophthalmology
DX: H25.12 Age-related nuclear cataract, left eye (principal); H52.202 Unspecified astigmatism, left eye; I10 Essential (primary) hypertension; H35.039 Hypertensive retinopathy, unspecified eye; J45.909 Unspecified asthma, uncomplicated; K21.9 Gastro-esophageal reflux disease without esophagitis; Z85.3 Personal history of malignant neoplasm of breast; F32.9 Major depressive disorder, single episode, unspecified; E78.00 Pure hypercholesterolemia, unspecified; L71.9 Rosacea, unspecified; Z79.899 Other long term (current) drug therapy; Z79.82 Long term (current) use of aspirin

== ENCOUNTER → 2017-01-11 | Outpatient (CLI) | payer OTHER ==
[~2017-01-11] MED LIST changes: -500ML BSS 0.3ML EPI 1:1000PF IRRIG ONE; -ACETAMINOPHEN 325 MG TAB ONE; -ACETAMINOPHEN 325 MG TAB PO PRN; -AMVISC PLUS 0.8ML SYRINGE INT OCU ONE; -ATROPINE SULFATE 0.1 MG/ML 5ML SYR IV PRN; -BRIMONIDINE TART 0.2% OP SOLN PER DROP CHARGE ONE; -BSS FLUSH ONE; -CIPR-255 PO; -CYCLOPENTOLATE HCL 1% OP SOLN PER DROP CHARGE OPL SCH; -ENDOCOAT 0.85ML SYRINGE INT OCU ONE; -EpINEphrine INJ 1MG/ML AMP 1 MG/ML AMP ONE; -KETOROLAC 0.5% OP SOLN PER DROP CHARGE OPL SCH; -LACTATED RINGER'S 1000ML 500 ML IV SCH; -LIDOCAINE 4% OP SOLN DROP CHARGE ONE; -LIDOCAINE 4% OP SOLN DROP CHARGE OPL SCH; -LIDOCAINE HCL 1% MPF 2 ML VIAL ONE; -MIDAZOLAM HCL 1 MG/ML 2ML VIAL ONE; -MOXIFLOXACIN OPH SOLN PER DROP CHARGE ONE; -MOXIFLOXACIN OPH SOLN PER DROP CHARGE OPL SCH; -PHENYLEPHRINE HCL 2.5% OP SOLN PER DROP CHARGE OPL SCH; -POVIDONE-IODINE OP SOLN 30 ML BTL ONE; -PROPARACAINE 0.5% OP SOLN PER DROP CHARGE OPL SCH; -TOBRAMYCIN/DEXAMETHASONE OPH OINT PER APPLN CHARGE ONE; -TROPICAMIDE 1% OP SOLN PER DROP CHARGE OPL SCH
--- NOTE | 2017-01-11 12:45 | DIAGNOSTIC IMAGING REPORT ---
TWO VIEW CHEST CLINICAL HISTORY: Asthma. FINDINGS: PA and lateral chest radiographs are compared to study dated 08/04/2016. Correlation is made with chest CT dated 03/16/2016. The patient is status post midline sternotomy. The heart is normal in size and there is atherosclerotic calcification of the thoracic aorta. Chronic interstitial thickening is unchanged. The lungs and pleural spaces are clear. There is no pneumothorax. The skeletal structures are osteopenic. The bony thorax appears intact. IMPRESSION: No active disease in the chest. Electronically signed by: Osman Joyce M.D. 01/11/2017 12:44 PM Dictated Date/Time: 01/11/2017 12:43 PM
== END | disposition home or self-care (01) ==
LOC: C.RADBC 12:30
PROVIDERS: ATTEND Family Medicine
DX: J45.909 Unspecified asthma, uncomplicated (principal); R05 Cough

== ENCOUNTER → 2017-01-29 | Day surgery (SDC) | payer OTHER ==
[2017-01-25 08:57] VITALS: Ht 160 cm; Wt 76.4 kg
[~2017-01-29] VITALS: Ht 160 cm; Wt 76.4 kg
[~2017-01-29] MED LIST changes: +500ML BSS 0.3ML EPI 1:1000PF IRRIG ONE; +ACETAMINOPHEN 325 MG TAB PO PRN; +AMVISC PLUS 0.8ML SYRINGE INT OCU ONE; +ATROPINE SULFATE 0.1 MG/ML 5ML SYR IV PRN; +BRIMONIDINE TART 0.2% OP SOLN PER DROP CHARGE ONE; +BSS FLUSH ONE; +ENDOCOAT 0.85ML SYRINGE INT OCU ONE; +EpHEDrine SULFATE INJ 50 MG/ML AMP IV PRN; +EpINEphrine INJ 1MG/ML AMP 1 MG/ML AMP ONE; +LACTATED RINGER'S 1000ML 500 ML IV SCH; +LIDOCAINE 4% OP SOLN DROP CHARGE ONE; +LIDOCAINE 4% OP SOLN DROP CHARGE OPR SCH; +LIDOCAINE HCL 1% MPF 2 ML VIAL ONE; +MIDAZOLAM HCL 1 MG/ML 2ML VIAL ONE; +MOXIFLOXACIN OPH SOLN PER DROP CHARGE ONE; +POVIDONE-IODINE OP SOLN 30 ML BTL ONE; +PROPARACAINE 0.5% OP SOLN PER DROP CHARGE OPR SCH; +TOBRAMYCIN/DEXAMETHASONE OPH OINT PER APPLN CHARGE ONE
[2017-01-29] MEDS: PHENYLEPHRINE HCL 2.5% OP SOLN PER DROP CHARGE OPR SCH ×2 (08:29→08:34)
[2017-01-29] MEDS: TROPICAMIDE 1% OP SOLN PER DROP CHARGE OPR SCH ×2 (08:30→08:35)
[2017-01-29] MEDS: CYCLOPENTOLATE HCL 1% OP SOLN PER DROP CHARGE OPR SCH ×2 (08:31→08:36)
[2017-01-29] MEDS: KETOROLAC 0.5% OP SOLN PER DROP CHARGE OPR SCH ×2 (08:32→08:37)
[2017-01-29] MEDS: MOXIFLOXACIN OPH SOLN PER DROP CHARGE OPR SCH ×2 (08:33→08:45)
--- NOTE | 2017-01-29 09:44 | [facility] Post Operative Brief Note ---
Immediate Operative Summary Operative Date January 29, 2017. Pre-Operative Diagnosis Cataract Right Eye Post-Operative Diagnosis Same Procedure(s) Performed Right Cataract Phacoemulsification With Intraocular Lens Implant Surgeon Dr. Molina Medical Cost Consultant Surgeon(s) None Estimated Blood Loss 0 Findings cataract right eye Specimens None Complication(s) None Disposition Recovery Room / PACU
--- NOTE | 2017-01-29 09:44 | Discharge Instructions-SurgCtr ---
Discharge Instructions Date of Service January 29, 2017. Visit Reason for Visit: Right Cataract Discharge Discharge Diagnosis / Problem: cataract right eye Discharge Goals Goal(s): Improve function Activity Recommendations Activity Limitations: per Instructions/Follow-up section Lifting Limitations: no more than 5 pounds Anesthesia . Post Anesthesia Instructions: If you have had General Anesthesia or IV Sedation: * Do not drive today. * Resume driving when surgeon permits. * Do not make important decisions or sign legal documents today. * Call surgeon for: 1. Temperature elevations greater than 101 degrees F. 2. Uncontrollable pain. 3. Excessive bleeding. 4. Persistent nausea and vomiting. 5. Medication intolerance (nausea, vomiting or rash). * For nausea and vomiting use only clear liquids such as: tea, soda, bouillon until nausea subsides, then gradually increase diet as tolerated. * If you have any concerns or questions, call your surgeon's office. If physician is unavailable and it is an emergency, call 911 or go to the nearest emergency room. . Instructions / Follow-Up Instructions / Follow-Up ACTIVITY RECOMMENDATIONS: * Light activities * You may walk outside, read, watch television. * Mild irritation and blurred vision are common for the first few days, redness around the white part of the eye is common. MEDICATIONS: Resume previous medications unless instructed otherwise by your surgeon. Eye drops (today and tomorrow): Cipro - one drop in operative eye every 2 hours while awake Prednisolone 1% - one drop in operative eye every 2 hours while awake Bromfenac - one drop in operative eye once daily SPECIAL CARE INSTRUCTIONS: * If any problems or concerns, please call Dr. Molina's office at . * Keep plastic shield taped over eye to sleep at night. * Keep plastic shield taped over eye except to administer eye drops. * Keep plastic shield on until office visit the following day. FOLLOW UP VISIT: Follow-up with Dr. Molina in the [place] office as scheduled. If not already scheduled, please call the office at . Diet Recommendations Home Diet: resume previous diet Procedures Procedures Performed: Right Cataract Phacoemulsification With Intraocular Lens Implant Pending Studies Studies pending at discharge: no Medical Emergencies . Who to Call and When: Medical Emergencies: If at any time you feel your situation is an emergency, please call 911 immediately. . Non-Emergent Contact Non-Emergency issues call your: [employer] Security Administrator . . "Provider Documentation" section prepared by Jay Molina. .
[2017-01-29 09:54] VITALS: TEMP 36.8
--- NOTE | 2017-01-29 09:55 | Anesthesia Progress Nt - [facility] ---
Anesthesia Post Op Note Date & Time January 29, 2017 at 09:54 Vital Signs Pain Intensity: 0 Vital Signs Past 12 Hours Date Time Temp Pulse Resp B/P Pulse Ox O2 Delivery O2 Flow Rate FiO2 01/29/17 08:24 36.4 78 18 132/82 100 Room Air Notes Mental Status: alert / awake / arousable, participated in evaluation Pt Amnestic to Procedure: Yes Nausea / Vomiting: adequately controlled Pain: adequately controlled Airway Patency, RR, SpO2: stable & adequate BP & HR: stable & adequate Hydration State: stable & adequate Anesthetic Complications: no major complications apparent
[2017-01-29 10:14] VITALS: BP 113/77; PULSE 74; O2SAT 97
--- NOTE | 2017-01-29 12:32 | OPERATIVE REPORT ---
DATE OF OPERATION: 01/29/2017 PREOPERATIVE DIAGNOSIS: Cataract, right eye. POSTOPERATIVE DIAGNOSIS: Cataract, right eye. PROCEDURE: Phacoemulsification cataract extraction with intraocular lens placement, right eye. SURGEON: Dr. Molina. COMPLICATIONS: None. ESTIMATED BLOOD LOSS: None. ANESTHESIA: Topical with sedation. DESCRIPTION OF PROCEDURE: After informed consent was obtained in the holding area the patient was wheeled back to the Operating Room where cardiac monitoring leads and oxygen by nasal cannula was administered by Anesthesia. Gentle IV sedation was given, and the patient's right eye was prepped and draped in usual sterile fashion. A wire lid speculum was placed into the right eye and the operating microscope was swung into position. Using 0.12 forceps and a Supersharp blade a paracentesis port was made 3 o'clock hours away from the 9 o'clock position of patient's right eye. 1% non-preserved Lidocaine was then injected into the anterior chamber for anesthesia. A 2.2 mm keratotome blade was then used to make a shelved clear corneal incision at the 9 o'clock position of her right eye. Amvisc was injected into the anterior chamber and a cystotome and Utrata forceps were used to perform a curvilinear capsulorrhexis. BSS on a hydrodissection cannula was used to hydrodissect the lens nucleus away from the capsular bag. The phacoemulsification handpiece was then used in a stop and chop fashion to remove the lens nucleus. The irrigation and aspiration handpiece was then used to remove the residual cortical material. Amvisc was injected into the capsular bag and anterior chamber and a Bausch \T\ Lomb MX60 20.5 Diopter intraocular lens was injected into the capsular bag. Irrigation and aspiration handpiece was used to remove the residual viscoelastic material. The wounds were hydrated and noted to be watertight. The wire lid speculum was removed from the eye. Vigamox, Brimonidine, and TobraDex ointment were placed on the eye and it was shielded. It should be noted that EndoCoat was used throughout the case to protect the cornea endothelium. DISPOSITION: The patient tolerated the procedure well and was wheeled to the post anesthesia care unit in stable condition. I attest to the content of the Intraoperative Record and any orders documented therein. Any exceptions are noted below. I attest to the content of the Intraoperative Record and any orders documented therein. Any exceptio ns are noted below.
== END | disposition home or self-care (01) ==
LOC: X.SURG 08:04
PROVIDERS: ATTEND Ophthalmology
DX: H26.9 Unspecified cataract (principal); I10 Essential (primary) hypertension; J45.909 Unspecified asthma, uncomplicated; Z96.629 Presence of unspecified artificial elbow joint; Z90.10 Acquired absence of unspecified breast and nipple

== ENCOUNTER → 2017-04-18 | Day surgery (SDC) | payer BC, OTHER ==
[2017-04-05 10:56] VITALS: Ht 160 cm; Wt 76.4 kg
[~2017-04-18] VITALS: Ht 160 cm; Wt 76.4 kg
[~2017-04-18] MED LIST changes: -500ML BSS 0.3ML EPI 1:1000PF IRRIG ONE; -ACETAMINOPHEN 325 MG TAB PO PRN; -AMVISC PLUS 0.8ML SYRINGE INT OCU ONE; -ATROPINE SULFATE 0.1 MG/ML 5ML SYR IV PRN; -BRIMONIDINE TART 0.2% OP SOLN PER DROP CHARGE ONE; -BSS FLUSH ONE; -ENDOCOAT 0.85ML SYRINGE INT OCU ONE; -EpHEDrine SULFATE INJ 50 MG/ML AMP IV PRN; -EpINEphrine INJ 1MG/ML AMP 1 MG/ML AMP ONE; -HYDR-5688 PO; -LACTATED RINGER'S 1000ML 500 ML IV SCH; -LIDOCAINE 4% OP SOLN DROP CHARGE ONE; -LIDOCAINE 4% OP SOLN DROP CHARGE OPR SCH; -LIDOCAINE HCL 1% MPF 2 ML VIAL ONE; +LIDOCAINE HCL 2% 2 ML VIAL (20MG/ML) ONE; -MOXIFLOXACIN OPH SOLN PER DROP CHARGE ONE; -POVIDONE-IODINE OP SOLN 30 ML BTL ONE; -PROPARACAINE 0.5% OP SOLN PER DROP CHARGE OPR SCH; +PROPOFOL IV EMULSION 10 MG/ML 20 ML VIAL IV ONE; -TOBRAMYCIN/DEXAMETHASONE OPH OINT PER APPLN CHARGE ONE
--- NOTE | 2017-04-18 14:37 | Endo History and Physical ---
History & Physical Date of Service: Apr 18, 2017. Chief Complaint: screening Referring Physician: Dr. Cliff Vaughn History of Present Illness 61 yo CF who presents for screening colonoscopy. Past Medical History Asthma, Hypertension, Depression Past Surgical History Hx Cardiac Surgery: Yes (HEART CATH, NO STENTS; CABG X5 VESSELS) Hx Internal Defibrillator: No Hx Pacemaker: No Hx Abdominal Surgery: Yes (LUANN) Hx Post-Op Nausea and Vomiting: No Hx Cancer Surgery: Yes (BCC REMOVAL ON NOSE, BLT MASTECTOMY) Hx Thoracic Surgery: No Hx Orthopedic: Yes (RT ELBOW RECON) Hx Urinary Tract Surgery: No Family History None Social History Smoking Status: Never Smoker Hx Substance Use: No Hx Alcohol Use: Yes (2 BEERS/DAY) Allergies Coded Allergies: Iodinated Diagnostic Agents (Verified Allergy, Intermediate, HIVES, ) Sulfa Antibiotics (Verified Allergy, Intermediate, HIVES, 04/05/17) Cefuroxime (Verified Allergy, Unknown, per records , 04/05/17) POLLEN (Verified Allergy, Unknown, HAY FEVER, 04/05/17) Vancomycin (Verified Adverse Reaction, Intermediate, "ITCHY AND RED ALL OVER", 04/05/17) DURING 02/22/11 ADMISSION, PT RECEIVED 2GM IV VANCOMYCIN. COMPLAINED THAT HER "FEET GOT ITCHY AND SHE WAS ITCHY ALL OVER." AE OCCURED OVERNIGHT, SO UNFORTUNATELY WE DO NOT KNOW IF THE RATE WAS SLOWED. PT RECEIVED 1 DOSE OF BENADRYL- ITCHINESS RESOLVED. VANCOMYCIN D/C BY AND CHANGED TO DAPTO PER DR MONTEMAYOR. SANTOS Inhibitors (Verified Adverse Reaction, Mild, Cough, 04/05/17) Ceftriaxone (Verified Adverse Reaction, Mild, URTICARIA, 04/05/17) Egg (Verified Adverse Reaction, Mild, does not like., 04/05/17) can eat eggs in products and foods. does not like eggs individually [place] (Verified Adverse Reaction, Mild, upset stomach, 04/05/17) Adhesives (Verified Adverse Reaction, Unknown, tape per records , 04/05/17) Current Medications Reported Home Medications Medications Dose Route/Sig Max Daily Dose Days Date Category Nitrostat (Nitroglycerin) 0.3 Mg Tab 0.3 Mg UT PRN 10/25/16 Reported Benicar (Olmesartan Medoxomil) 40 Mg Tab 40 Mg PO QAM 2/15/17 Reported Prevacid (Lansoprazole) 30 Mg Capcr 30 Mg PO QAM 10/25/16 Reported Flonase Allergy Relief (Fluticasone Propionate (Nasal)) 50 Mcg/Act Spr 2 Sprays CHRISTIANO DAILY PRN 04/25/16 Reported Vitamin D (Cholecalciferol) 1,000 Inter.unit Tab 5,000 Inter.unit PO QAM 02/05/16 Reported Zoloft (Sertraline HCl) 100 Mg Tab 200 Mg PO QAM 02/05/16 Reported Aspirin Chewable (Aspirin) 81 Mg Chew 81 Mg PO QAM 06/29/12 Reported Qvar (Beclomethasone Dipropionate) 80 Mcg/ Aer 2 Puffs INH DAILY PRN 06/29/12 Reported Proair Hfa (Albuterol Sulfate) 108 Mcg/ Aer 2 Puffs INH Q4H PRN 06/29/12 Reported Vital Signs Weight (Kilograms): 76.36 Height (Feet): 5 Height (Inches): 3 Date Time Temp Pulse Resp B/P (MAP) Pulse Ox O2 Delivery O2 Flow Rate FiO2 04/18/17 14:08 36.4 74 20 145/91 (109) 97 Room Air Physical Exam General Appearance: WD/WN, no apparent distress Respiratory/Chest: Auscultation: breath sounds normal Cardiovascular: Heart Auscultation: RRR Abdomen: Bowel Sounds: normal Inspection & Palpation: soft, non-distended, no tenderness, guarding & rebound Assessment and Plan Assessment: 61 yo CF who presents for screening colonoscopy. Plan: Proceed with colonoscopy.
--- NOTE | 2017-04-18 15:13 | Discharge Instructions ---
Endoscopy Patient Instructions Date / Procedure(s) Performed Apr 18, 2017. Colonoscopy Allergy Information Coded Allergies: Iodinated Diagnostic Agents (Verified Allergy, Intermediate, HIVES, 04/18/17 ) Sulfa Antibiotics (Verified Allergy, Intermediate, HIVES, 04/18/17) Cefuroxime (Verified Allergy, Unknown, per records , 04/18/17) POLLEN (Verified Allergy, Unknown, HAY FEVER, 04/18/17) Vancomycin (Verified Adverse Reaction, Intermediate, "ITCHY AND RED ALL OVER", 04/18/17) DURING 02/22/11 ADMISSION, PT RECEIVED 2GM IV VANCOMYCIN. COMPLAINED THAT HER "FEET GOT ITCHY AND SHE WAS ITCHY ALL OVER." AE OCCURED OVERNIGHT, SO UNFORTUNATELY WE DO NOT KNOW IF THE RATE WAS SLOWED. PT RECEIVED 1 DOSE OF BENADRYL- ITCHINESS RESOLVED. VANCOMYCIN D/C BY AND CHANGED TO DAPTO PER DR MONTEMAYOR. SANTOS Inhibitors (Verified Adverse Reaction, Mild, Cough, 04/18/17) Ceftriaxone (Verified Adverse Reaction, Mild, URTICARIA, 04/18/17) Egg (Verified Adverse Reaction, Mild, does not like., 04/18/17) can eat eggs in products and foods. does not like eggs individually [place] (Verified Adverse Reaction, Mild, upset stomach, 04/18/17) Adhesives (Verified Adverse Reaction, Unknown, tape per records , 04/18/17) Discharge Date / Findings Apr 18, 2017. Diverticulosis Internal hemorrhoids Medication Instructions Stopped Medication(s): took ASA yesterday OK to resume all medications today as prescribed Reported Home Medications Medications Dose Route/Sig Max Daily Dose Days Date Category Nitrostat (Nitroglycerin) 0.3 Mg Tab 0.3 Mg UT PRN 10/25/16 Reported Benicar (Olmesartan Medoxomil) 40 Mg Tab 40 Mg PO QAM 10/25/16 Reported Prevacid (Lansoprazole) 30 Mg Capcr 30 Mg PO QAM 10/25/16 Reported Flonase Allergy Relief (Fluticasone Propionate (Nasal)) 50 Mcg/Act Spr 2 Sprays CHRISTIANO DAILY PRN 04/25/16 Reported Vitamin D (Cholecalciferol) 1,000 Inter.unit Tab 5,000 Inter.unit PO QAM 02/05/16 Reported Zoloft (Sertraline HCl) 100 Mg Tab 200 Mg PO QAM 02/05/16 Reported Aspirin Chewable (Aspirin) 81 Mg Chew 81 Mg PO QAM 06/29/12 Reported Qvar (Beclomethasone Dipropionate) 80 Mcg/ Aer 2 Puffs INH DAILY PRN 06/29/12 Reported Proair Hfa (Albuterol Sulfate) 108 Mcg/ Aer 2 Puffs INH Q4H PRN 06/29/12 Reported Provider Instructions Activity Restrictions - No exercising or heavy lifting for 24 hours. - Do not drink alcohol the day of the procedure. - Do not drive a car or operate machinery until the day after the procedure. - Do not make any important decisions or sign important papers in 24 hours after the procedure. Following Day: - Return to full activity which may include returning to work/school. Diet Start your diet with liquids and light foods (jello, soup, juice, toast). Then eat your usual diet if not nauseated. Treatment For Common After Affects For mild abdominal pain, bloating, or excessive gas: - Rest - Eat lightly - Lie on right side Follow-Up Information Follow-up with Dr. Cliff Vaughn as scheduled Anesthesia Information What You Should Know You have had a procedure that required some medicine to reduce anxiety and discomfort. This treatment is called moderate sedation. After receiving the treatment, you may be sleepy, but you will be able to breathe on your own. The effects of the treatment may last for several hours. Follow these instructions along with Activity/Diet recommendations noted above: * Do NOT do anything where dizziness or clumsiness would be dangerous. * Rest quietly at home today, then you can be up and about tomorrow. * Have a responsible person stay with you the rest of today. * You may have had an I.V. today. If so, you may take the dressing off later today. Recommendations Call your doctor if: * Trouble breathing * Continuous vomiting for more than 24 hours * Temperature above 101 degrees * Severe abdominal pain or bloating * Pain not relieved by pain medicine ordered * There is increased drainage or redness from any incision * A large amount of rectal bleeding greater than 2-3 tablespoons. (If you had a polyp/s removed or have hemorrhoids, a small amount of blood - from the rectum is to be expected.) * You have any unanswered questions or concerns. IN THE EVENT OF A SERIOUS EMERGENCY, GO TO THE NEAREST EMERGENCY ROOM Your discharge instructions were prepared by provider Truman Loving. Patient Instructions Signature Page Amirah Zavaleta Patient (or Guardian) Signature/Date: I have read and understand the instructions given to me by my caregivers. Caregiver/RN/Doctor Signature/Date: The above-named patient and/or guardian has received patient instructions on this date. + Original Patient Signature Page (only) stays with chart. Please make copy for patient.
--- NOTE | 2017-04-18 15:16 | GI REPORT ---
Procedure Date: 04/18/2017 2:40 PM Procedure: Colonoscopy Indications: Screening for colorectal malignant neoplasm Medicines: Monitored Anesthesia Care Complications: No immediate complications. Estimated Blood Loss: Estimated blood loss: none. Procedure: Pre-Anesthesia Assessment: - Prior to the procedure, a History and Physical was performed, and patient medications and allergies were reviewed. The patient's tolerance of previous anesthesia was also reviewed. The risks and benefits of the procedure and the sedation options and risks were discussed with the patient. All questions were answered, and informed consent was obtained. Prior Anticoagulants: The patient has taken no previous anticoagulant or antiplatelet agents. ASA Grade Assessment: II - A patient with mild systemic disease. After reviewing the risks and benefits, the patient was deemed in satisfactory condition to undergo the procedure. After I obtained informed consent, the scope was passed under direct vision. Throughout the procedure, the patient's blood pressure, pulse, and oxygen saturations were monitored continuously. The scope was introduced through the anus and advanced to the terminal ileum. The colonoscopy was performed without difficulty. The patient tolerated the procedure well. The quality of the bowel preparation was good. The terminal ileum, ileocecal valve, appendiceal orifice, and rectum were photographed. Findings: Multiple small-mouthed diverticula were found in the sigmoid colon. Non-bleeding internal hemorrhoids were found during retroflexion. The hemorrhoids were small. Impression: - Diverticulosis in the sigmoid colon. - Non-bleeding internal hemorrhoids. - No specimens collected. Recommendation: - Resume previous diet. - Continue present medications. - Repeat colonoscopy in 10 years for surveillance. - Return to primary care physician as previously scheduled. Truman Loving, 04/18/2017 3:15:53 PM This report has been signed electronically. Note Initiated On: 04/18/2017 2:40 PM I attest to the content of the Intraoperative Record and orders documented therein, exceptions below
--- NOTE | 2017-04-18 15:32 | Anesthesiology Progress Note ---
Anesthesia Post Op Note Date & Time Apr 18, 2017 at 15:32 Vital Signs Pain Intensity: 0 Vital Signs Past 12 Hours Date Time Temp Pulse Resp B/P (MAP) Pulse Ox O2 Delivery O2 Flow Rate FiO2 04/18/17 15:18 69 20 124/76 (92) 97 Room Air 04/18/17 15:03 68 24 91/68 (76) 98 Room Air 04/18/17 14:08 36.4 74 20 145/91 (109) 97 Room Air Notes Mental Status: alert / awake / arousable, participated in evaluation Pt Amnestic to Procedure: Yes Nausea / Vomiting: adequately controlled Pain: adequately controlled Airway Patency, RR, SpO2: stable & adequate BP & HR: stable & adequate Hydration State: stable & adequate Anesthetic Complications: no major complications apparent
[2017-04-18 15:33] VITALS: BP 154/90; PULSE 57; O2SAT 100
== END | disposition home or self-care (01) ==
LOC: C.GI 13:25
PROVIDERS: ATTEND Internal Medicine
DX: Z12.11 Encounter for screening for malignant neoplasm of colon (principal); K57.30 Diverticulosis of large intestine without perforation or abscess without bleeding; K64.8 Other hemorrhoids; I10 Essential (primary) hypertension; J45.909 Unspecified asthma, uncomplicated; F32.9 Major depressive disorder, single episode, unspecified; Z79.82 Long term (current) use of aspirin; Z79.899 Other long term (current) drug therapy

== ENCOUNTER 2017-08-20 00:36 | Emergency (ER) | payer OTHER ==
[~2017-08-20] VITALS: Ht 160 cm; Wt 76.6 kg
[~2017-08-20 00:36] MED LIST changes: -LIDOCAINE HCL 2% 2 ML VIAL (20MG/ML) ONE; -MIDAZOLAM HCL 1 MG/ML 2ML VIAL ONE; -PROPOFOL IV EMULSION 10 MG/ML 20 ML VIAL IV ONE
[2017-08-20 00:44] VITALS: TEMP 36.2; Ht 160 cm; Wt 76.6 kg
[2017-08-20] MEDS: TRAMADOL HCL 50 MG HOME PACK PO ONE ×2 (01:30→04:48)
[2017-08-20] MEDS ORDERED: MELO15TA4 PO (01:54)
[2017-08-20] MEDS ORDERED: OLME40TA33 PO ×2 (01:54→01:56)
[2017-08-20] MEDS ORDERED: COEN150C PO (01:57)
[2017-08-20] MEDS ORDERED: CHOL1CAP74 PO (01:59)
[2017-08-20] MEDS ORDERED: REDCAP2 PO (01:59)
[2017-08-20] MEDS ORDERED: QVRINH80 PO (02:00)
[2017-08-20] MEDS ORDERED: VNTHFA/IN INH (02:00)
[2017-08-20] MEDS ORDERED: TRAMADOL HCL 50 MG TAB PO STA (02:43)
[2017-08-20] MEDS ORDERED: AMOXICIL/CLAVU 875MG HOME PACK PO ONE (04:15)
--- NOTE | 2017-08-20 04:22 | EMERGENCY ROOM VISIT NOTE ---
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 Pain currently 7 out of 10. Worse with movement and better with rest. She's been taking Mobic with minimal relief of symptoms. She follows with Dr. Mccracken. No fall. No trauma. Patient denies numbness, tingling, radiating pain, leg swelling, meyer pain, ankle pain, thigh pain. Patient also complains of a lump underneath her neck for the past week or so. She states it slightly uncomfortable for her. She has a history of breast cancer. She is not on tamoxifen. Patient is concerned this could be related to her history of cancer. Patient denies chest pain, dyspnea, weight loss, night sweats, cold symptoms, sore throat. Review of Systems See HPI for pertinent positives & negatives. A total of 10 systems reviewed and were otherwise negative. 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 (14) Mitral Valve Disorder (15) NSTEMI (non-ST elevated myocardial infarction) (16) Pneumonia, Organism Nos (17) Postprocedural Fever (18) Shortness of breath Surgical Problems: (1) History of mastectomy Family History Diabetes mellitus FH: heart disease FHx: cancer Hypertension Kidney disease Kidney stones Social History Smoking Status: Never Smoker Alcohol Use: occasionally Marital Status: Occupation Status: unemployed Current/Historical Medications Scheduled Aspirin (Aspirin Chewable), 81 MG PO QAM Cholecalciferol (Vitamin D3 Maximum Streng), 5,000 UNIT PO DAILY Coenzyme Q10 (Ubidecarenone) (Co Q-10), 1 CAP PO DAILY Lansoprazole (Prevacid), 30 MG PO QAM Meloxicam (Meloxicam), 15 MG PO DAILY Olmesartan Medoxomil (Olmesartan Medoxomil), 20 MG PO DAILY Red Yeast Rice Extract (Red Yeast Rice), 600 MG PO DAILY Sertraline (Zoloft), 200 MG PO QAM Scheduled PRN Albuterol Hfa (Ventolin Hfa), 2 PUFFS INH Q4 PRN for SOB/Wheezing Beclomethasone Dip (Qvar), 2 PUFFS PO DAILY PRN for SOB/Wheezing Fluticasone Propionate (Nasal) (Flonase Allergy Relief), 2 SPRAYS CHRISTIANO DAILY PRN for ALLERGIC REACTION Nitroglycerin (Nitrostat), 0.3 MG UT UD PRN for Chest Pain Physical Exam Vital Signs Date Time Temp Pulse Resp B/P (MAP) Pulse Ox O2 Delivery O2 Flow Rate FiO2 08/20/17 03:28 59 18 163/81 98 08/20/17 01:50 67 18 152/88 95 08/20/17 00:44 36.2 75 20 150/81 97 Room Air Physical Exam VITALS: Vitals are noted on the nurse's note and reviewed by myself. Vital signs hypertensive GENERAL: Pleasant female, in no acute distress, nondiaphoretic, well-developed well-nourished. SKIN: The skin was without rashes, erythema, edema, or bruising. There is no tenting of the skin. Capillary reflex less than 2 seconds. HEAD: Normocephalic atraumatic. EARS: External auditory canals clear, tympanic membranes pearly major without erythema or effusion bilaterally. EYES: Pupils equal round and reactive to light and accommodation. Conjunctivae without injection, sclerae without icterus. Extraocular movements intact. NOSE: Patent, turbinates without inflammation or discharge. No sinus tenderness. MOUTH: Mucous membranes moist. Pharynx without erythema or exudate. Uvula midline. Airway patent. Tongue does not deviate. NECK: Supple without nuchal rigidity. Minimal submental lymph node enlargement , no other lymphadenopathy. No thyromegaly. Cervical spine is nontender. No JVD. HEART: Regular rate and rhythm without murmurs gallops or rubs. LUNGS: Clear to auscultation bilaterally without wheezes, rales or rhonchi. No dullness to percussion. No retractions or accessory muscle use. ABDOMEN: Positive bowel sounds x 4. Normal tympanic percussion. Soft, nontender, without masses or organomegaly. López sign negative. No guarding or rebound tenderness. MUSCULOSKELETAL: No muscle atrophy, erythema, or edema noted. Right knee without erythema, edema or effusion. Nontender to palpation. Increased pain with range of motion. Negative Mary's. Negative drawer's. No right meyer, ankle, thigh pain. NEURO: Patient was alert and oriented to person place and time. Normal sensation to light and sharp touch. No focal neurological deficits. Medical Decision & Procedures Medications Administered Medications (Trade) Dose Ordered Sig/Razia Route Start Time Stop Time Status Last Admin Dose Admin Tramadol HCl (Ultram Tab) 50 mg ONE STAT PO 08/20/17 02:43 08/20/17 02:44 DC 08/20/17 03:30 50 MG ED Course Prior records reviewed and summarized as above. Triage Nursing notes reviewed. Additional history obtained from family. The patient's history was concerning for chronic worsening knee pain and lump to neck region. Differential diagnosis: Etiologies such as cellulitis, abscess, MRSA infection, mass, sprain, strain, fracture, DVT, as well as others were entertained.. Physical examination: as above ER treatment provided: ultram, walker On reassessment the patient felt better. Diagnostics interpreted by me: Imaging studies: US SOFT TISSUE: 2 hypoechoic rounded structures with mildly hyperechoic rim are seen in the region of palpable abnormality (submental region). The larger structure measures approximately 1.0 x 0.8 x 0.8 cm to the right of midline, and the smaller structure measures 0.8 x 0.5 x 0.8 cm to the left of midline. There appears to be associated color Doppler flow with the structures. Findings may represent nonspecific lymph nodes. Rounded pathology without definite normal fatty hilum raises suspicion for pathologic lymph nodes. Radiologist: Ladarius Neff M.D. Study ready at 03:28 and initial results transmitted Knee x-ray negative for fracture, fusion dislocation per my interpretation This appears to be chronic knee pain is likely from osteoarthritis. Patient was having pain with ambulation was fitted with a walker. She is advised to follow-up with her with your doctor in a few days or here in the ER sooner for severe pain, numbness, tingling, worsening signs or symptoms or as needed. Patient no fracture or signs of infection of the knee. Patient also complains of lump underneath her chin. Lymph nodes weren't plans on ultrasound and patient was started on antibiotics. She is advised to follow- up family care and oncologist for this or here in the ER sooner for fevers, neck stiffness, worsening signs or symptoms or as needed. By the evaluation outlined above emergent etiologies such as abscess, as well as others were deemed relatively unlikely. The pt informed about the findings as listed above. All questions were answered and pleased with the treatment. Return instructions were outlined and the patient was discharged in stable condition. Outpatient prescription management: Ultram, Augmentin Referral: The patient was referred back to orthopedics and primary care physician and oncologist for follow-up in 2 to 3 days for a recheck of the current condition. Case reviewed with my attending. Medical Decision As above Medication Reconcilliation Current Medication List: was personally reviewed by me Blood Pressure Screening Patient's blood pressure: Elevated blood pressure Blood pressure disposition: Elevated BP felt to be situational Impression Primary Impression: Osteoarthritis of right knee Additional Impression: Enlarged submental lymph node Departure Information Dispostion Home / Self-Care Condition GOOD Referrals Cliff Vaughn M.D. (PCP) Patient Instructions My [facility] Additional Instructions DO NOT drive, drink alcohol, operate machinery, or perform dangerous activities today. You were given medications in the ER that can affect your ability to safely function or operate a vehicle. Ultram 50 mg: Take 1-2 pills every four hours for breakthrough pain. Avoid alcohol, operating machinery or dangerous equipment, working on ladders or roofs , DRIVING, or situations where being under the influence may be dangerous. It is recommended to use an khqz-ens-igelurn stool softener such as Colace, 100mg twice daily while taking this medication to avoid constipation. Ibuprofen(Motrin, Advil) may be used for fever or pain. Use 600mg every six hours as needed. Take with food. Avoid using more than 2400mg in a 24 hour period. Do not use 2400mg per day for more than three consecutive days without physician direction. Prolonged inappropriate use can lead to stomach upset or ulcers. This medication can be taken if you need to drive, work, or perform activities which may be dangerous when taking narcotic pain medication. (AND/OR) Acetaminophen(Tylenol) may be used for fever or pain. Use 1000mg every six hours as needed. Avoid using more than 3000mg in a 24 hour period. This medication can be taken if you need to drive, work, or perform activities which may be dangerous when taking narcotic pain medication. Ice compresses for 20 minutes at a time four times daily for 2-3 days. Use the walker as instructed. Rest and elevate your injury. Continue current medications. Return to the ER immediately for any numbness, tingling, severe pain, extreme swelling in the extremity or as needed. Call your Orthopedics tomorrow to arrange follow up for your injury. Enlarged lymph node: Amoxicillin Clavulanate (Augmentin) 875mg: Take one pill twice daily for 10 days for your infection. All antibiotics can cause diarrhea. If this occurs and you feel worse or it does not resolve in 1-2 days follow up with your doctor or return to the Emergency Department as this could be signs of serious underlying problems. Any medication can cause an allergic reaction, stop the pills immediately and return to the ER for rash, hives, breathing difficulties, or swelling. Warm compresses to the affected area 4 times daily for 15-20 minutes. Rest and drink plenty of fluids. Continue current medications. Return to the ER for severe pain, persistent fevers, spreading redness, or any worsening of your condition. Follow up with your primary physician and oncologist within 2-3 days for a recheck of the current condition. Problem Qualifiers Primary Impression: Osteoarthritis of right knee Osteoarthritis type: unspecified Qualified Codes: M17.11 - Unilateral primary osteoarthritis, right knee
[2017-08-20] MEDS ORDERED: AMOX875T PO (04:23)
[2017-08-20] MEDS ORDERED: TRAM-10 PO (04:23)
[2017-08-20] MEDS ORDERED: TRAMADOL HCL 50 MG HOME PACK ONE (04:46)
[2017-08-20 04:52] VITALS: BP 166/98; PULSE 63; O2SAT 97
--- NOTE | 2017-08-20 06:15 | DIAGNOSTIC IMAGING REPORT ---
R KNEE 3 VIEWS CLINICAL HISTORY: pain COMPARISON: None. DISCUSSION: Mild degenerative change medial and patellofemoral joint compartments. No acute bony abnormality. No significant joint effusion. Cortical margins are intact. There is no evidence for soft tissue swelling. IMPRESSION: Mild degenerative change. No acute process. The above report was generated using voice recognition software. It may contain grammatical, syntax or spelling errors. Electronically signed by: Pastor Mir M.D. 08/20/2017 6:14 AM Dictated Date/Time: 08/20/2017 6:13 AM
--- NOTE | 2017-08-20 06:50 | DIAGNOSTIC IMAGING REPORT ---
SOFT TISS HEAD/NECK-THYROID CLINICAL HISTORY: 61 years-old Female presenting with pain under chin/swelling, hx Breast CA. TECHNIQUE: Real-time grayscale and color Doppler ultrasound imaging of the neck was performed at the site of clinical concern. COMPARISON: Correlation made to CT from 2014. FINDINGS: At the site of clinical concern in the submandibular region, 2 hypoechoic lesions with internal vascularity on color Doppler noted. There is slight hyperechogenicity to the surrounding fat. The larger lesion measures 1.0 x 0.8 x 0.8 cm. The smaller lesion measures 0.8 x 0.5 x 0.8 cm. Suggestion of fatty sophia noted bilaterally. IMPRESSION: Two hypoechoic lesions in the submandibular region most consistent with lymph nodes. These are likely reactive. If there is clinical concern, follow-up ultrasound in 4-6 weeks could be obtained. Electronically signed by: Carson Person M.D. 08/20/2017 6:49 AM Dictated Date/Time: 08/20/2017 6:45 AM
== END 2017-08-20 04:52 | disposition home or self-care (01) ==
LOC: C.EDB 00:37 → C.EDA 04:52
DX: M17.11 Unilateral primary osteoarthritis, right knee (principal); R59.0 Localized enlarged lymph nodes; J45.909 Unspecified asthma, uncomplicated; I10 Essential (primary) hypertension; M54.5 Low back pain; Z79.82 Long term (current) use of aspirin; Z83.3 Family history of diabetes mellitus; Z82.49 Family history of ischemic heart disease and other diseases of the circulatory system; Z84.1 Family history of disorders of kidney and ureter

== ENCOUNTER → 2017-09-17 | Outpatient (CLI) | payer OTHER ==
[~2017-09-17] MED LIST changes: -ALBU1AER9 INH; -BECL0.3A INH; -BNC40 PO; -CHOL100010 PO; +CHOL1CAP74 PO; +COEN150C PO; +MELO15TA4 PO; +OLME40TA33 PO; +QVRINH80 PO; +REDCAP2 PO; +TRAM-10 PO; +VNTHFA/IN INH
--- NOTE | 2017-09-17 14:13 | DIAGNOSTIC IMAGING REPORT ---
R ELBOW MIN 3 VIEWS ROUTINE CLINICAL HISTORY: Right elbow pain. History of breast carcinoma. COMPARISON: None. DISCUSSION: There is an internally fixated proximal ulnar fracture. No acute fractures or dislocations are visualized. No destructive lesions are evident. IMPRESSION: 1. Healed internally fixated proximal ulnar fracture 2. No acute fractures identified. 3. No destructive lesions are visualized. Electronically signed by: Rinku Mcginnis M.D. 09/17/2017 2:11 PM Dictated Date/Time: 09/17/2017 2:09 PM
== END | disposition home or self-care (01) ==
LOC: C.RAD 13:54
PROVIDERS: ATTEND Internal Medicine Hematology & Oncology
DX: C50.919 Malignant neoplasm of unspecified site of unspecified female breast (principal)

== ENCOUNTER → 2017-10-09 | Outpatient (CLI) | payer OTHER | END | disposition home or self-care (01) | LOC: C.RDSM 10:57 | PROVIDERS: ATTEND Orthopaedic Surgery | DX: M25.561 Pain in right knee (principal) ==

== ENCOUNTER → 2017-10-22 | Outpatient (CLI) | payer OTHER ==
[~2017-10-22] MED LIST changes: +MELO-83 PO; -MELO15TA4 PO
== END | disposition home or self-care (01) ==
LOC: C.MAMM 15:35
PROVIDERS: ATTEND Family Medicine
DX: T14.8XXA Other injury of unspecified body region, initial encounter (principal); X58.XXXA Exposure to other specified factors, initial encounter; M85.851 Other specified disorders of bone density and structure, right thigh; M85.852 Other specified disorders of bone density and structure, left thigh

== ENCOUNTER → 2017-10-29 | Day surgery (SDC) | payer OTHER ==
[2017-10-25 16:47] VITALS: Ht 160 cm; Wt 76.4 kg
[~2017-10-29] VITALS: Ht 160 cm; Wt 76.4 kg
[~2017-10-29] MED LIST changes: +ATROPINE SULFATE 0.1 MG/ML 5ML SYR IV PRN; +CEFAZOLIN 2000MG IV PUSH 15 ML IV SCH; +CLINDAMYCIN PHOS 150 MG/ML 2 ML VIAL IV SCH; +DEXAMETHASONE SOD INJ 4 MG/ML VIAL ONE; +EpHEDrine SULFATE INJ 50 MG/ML AMP ONE; +EpINEphrine INJ 1MG/ML AMP 1 MG/ML AMP ONE; +FENTANYL CITRATE INJ 50 MCG/1 ML 2 ML VIAL ONE; +HYDROmorphone INJ 2 MG/ML SYR/VIAL IV PRN; +KETOROLAC TROMETHAMINE 30 MG/ML VIAL IV. PRN; +LABETALOL HCL IV 5 MG/ML 20ML IV PRN; +LACTATED RINGER'S 1000ML 1,000 ML IV SCH; +LIDO 2%/EPINEPHRINE 1:100000 20 ML VIAL INFIL ONE; +LIDOCAINE HCL 2% 2 ML VIAL (20MG/ML) ONE; +MIDAZOLAM HCL 1 MG/ML 2ML VIAL ONE; +NRV/5 PO; +NURSING VERBAL MED ORDER ONE; +ONDANSETRON INJ 2 MG/ML 2 ML VIAL IV PRN; +ONDANSETRON INJ 2 MG/ML 2 ML VIAL ONE; +OXYCODONE/ACETAMINOPHEN 5-325 TAB PO PRN; +PRAV40TA2 PO; +PROPOFOL IV EMULSION 10 MG/ML 20 ML VIAL IV ONE; -REDCAP2 PO; +ROPIVACAINE 0.5% 5 MG/ML 30 ML VIAL ONE; +SODIUM CHLORIDE 0.9% 1000ML 1,000 ML IV SCH; -TRAM-10 PO
--- NOTE | 2017-10-29 09:39 | [facility] Post Operative Brief Note ---
Immediate Operative Summary Operative Date Oct 29, 2017. Pre-Operative Diagnosis Right Knee Proximal Tibial Insufficiency Fracture Post-Operative Diagnosis Same Procedure(s) Performed Right Knee Injection Of Calcium Phosphate To Treat Proximal Tibia Fracture; Right Knee Arthroscopy, Minor Synovectomy, Chondroplasty Surgeon Dr. Rose Excel Expert Surgeon(s) Johan Wall PA-C Estimated Blood Loss 1 ml Findings Consistent with Post-Op Diagnosis Fluids (cc crystalloids) 800 cc Specimens None Drains None Anesthesia Type General Regional Complication(s) none Disposition Accompanied Pt To Recovery: no Disposition: Recovery Room / PACU
--- NOTE | 2017-10-29 10:05 | [facility] Operative Report ---
Operative Report Operative Date Oct 29, 2017. Pre-Operative Diagnosis Right Knee Proximal Tibial Insufficiency Fracture Post-Operative Diagnosis Same Procedure(s) Performed Right Knee Injection Of Calcium Phosphate To Treat Proximal Tibia Fracture; Right Knee Arthroscopy, Minor Synovectomy, Chondroplasty Surgeon Dr. Rose [employer] Worker Surgeon(s) Johan Wall PA-C Estimated Blood Loss 1 ml Fluids 800 cc Specimens None Drains None Anesthesia Type General Regional Complication(s) none Disposition no Recovery Room / PACU I attest to the content of the Intraoperative Record and any orders documented therein. Any exceptions are noted below.
--- NOTE | 2017-10-29 10:12 | Discharge Instructions ---
Discharge Instructions Date of Service Oct 29, 2017. Admission Reason for Admission: Right Knee Proximal Tibial Insufficiency Fracture Discharge Discharge Diagnosis / Problem: Right knee proximal tibial insufficiency fracture; synovitis; chondromalaci Discharge Goals Goal(s): Decrease discomfort, Improve function, Increase independence Activity Recommendations Activity Limitations: as noted below Lifting Limitations: none Exercise/Sports Limitations: until after follow-up appointment May Resume Sexual Activity: when tolerated Shower/Bathe: tomorrow, keep incision dry Driving or Machine Use: May resume after cleared by university extension specialist Weightbearing Status: Right weightbearing (as tolerated with crutch aide) . Instructions / Follow-Up Instructions / Follow-Up Post-operative Instructions Dear Patient and Family/Friends, Before you are discharged from the hospital, it is important to know what to expect when you get home after surgery. To that end, we have created this sheet of discharge instructions which covers many commonly asked questions. Make sure you go through this sheet in its entirety with your nurse before you are discharged. Please note that we will go over the specifics of your surgery and recovery when you return for your first post-operative visit. Sincerely, Dr. Rose Pain Expect to be in a fair amount of pain after surgery. Remember, our goal is not to eliminate your pain, but to make it tolerable. It is a good idea to stay ahead of your pain by taking the medications you were prescribed once you get home. Typically, the pain starts improving 3-7 days after surgery. You should start weaning off the narcotic pain medication (oxycodone, hydrocodone, hydromorphone, morphine) as soon as your pain improves. Please call our office if your pain is not adequately controlled. Ice Ice your operative site at least 5 times a day for 15-30 minutes at a time. Make sure you have a thin cloth between the ice or cooling unit and your skin to prevent negrete bite. This is especially important if you received a nerve block. Continue icing your operative site for the first 5-7 days after surgery , then as needed. Diet/Nausea/Vomiting Start by drinking clear liquids and eating crackers. If you can tolerate this, then you may resume your normal diet. If you feel nauseated or vomit, take Zofran/ondansetron (if prescribed). Please call our office if you have intractable nausea or vomiting, or, if after hours, you may go to the Emergency Room for help. Constipation Constipation is a common side effect of narcotic pain medication. If you have not had a bowel movement within 2 days after surgery, we recommend purchasing an over the counter laxative such as Milk of Magnesia, Dulcolax, or Miralax from a local pharmacy, and taking it as instructed. Call our clinic if any questions. Slings and Braces If you were placed in a sling or brace, it must be worn at all times, including sleep. You may remove your sling or brace for physical therapy, home exercises , and showering. The length of time you will be in your brace and range of motion restrictions depends on what surgery you had; these details will be reviewed at your first post-operative appointment. Nerve block The anesthesia team sometimes places a nerve block to help with post-operative pain control. This results in significant numbness and inability to move the extremity. The nerve block usually wears off in 8-12 hours, but sometimes can last up to 24 hours. Please call our office if you are still unable to move your extremity after 24 hours, unless you received a pain pump to take home. Nerve blocks typically wear off quickly, so start taking pain medication as soon as you start feeling soreness near your surgical site. Weight bearing and Range of Motion. Do not bear any weight through your operative extremity immediately after surgery. If you had upper extremity surgery, do not lift anything with that arm. If you are in a knee brace, keep it locked in place until your follow-up. We will discuss your weight bearing, range of motion, and lifting restrictions in detail at your first post-operative appointment. Continuous Passive Motion (CPM) Machine If you were prescribed a CPM machine, it will start after your first post- operative appointment, at which time we will give you instructions on the range of motion settings and duration of treatment Physical therapy You will be given a prescription for physical therapy or occupational therapy at your first post-operative appointment. Typically, patients start therapy within 1 week of surgery Wound care and showering We will inspect your wound at your first post-operative visit, and may do a dressing change at that time. Most patients will be in a water-proof dressing that is removed 14 days after surgery. It is normal to see some dried blood on the dressing. Do not remove your dressing, paper strips or sutures yourself unless you are given permission. Showering is allowed the day after surgery. Do not scrub or remove any dressings. The wound should not be submerged underwater (i.e. in a bathtub or pool) until 4 weeks after surgery RITCHIE stockings If you were given white stockings, these are to be worn at all times except to shower (on both legs) for the first 2 weeks after surgery. Driving You may not drive while taking narcotic pain medication or while in a cast, splint, sling or brace. You, the patient, need to make the final determination about when you are safe to drive, however, the earliest you may consider driving after surgery is below: Hand/Wrist/Elbow Surgery: 3 days Shoulder Surgery: 2 weeks Hip,/Knee/Ankle Surgery: 4 weeks Fracture repair: 6 weeks Return to Work Your return to work depends on what surgery was done and what type of work you do. Please bring any paperwork your employer needs completed to your first post -operative visit. Also, bring a description of your job duties, as this helps us to understand what risks you may face at work. Travel Avoid long distance travel (greater than 1 hour) in airplanes and cars for the first 6 weeks after surgery. If you must travel, you need to have a Doppler ultrasound done before you travel to rule out a blood clot in your legs. Follow-up You should have a follow-up appointment already scheduled 1-2 days after surgery. If not, please contact our office to make this appointment before you leave the hospital. When to call the office It is normal to have swelling and bruising in the limb that was operated on. This will improve with time. It is also normal to have fevers for the first 2 days after surgery. Reasons you should call your doctor include: Uncontrolled pain; Nausea, vomiting, or constipation that does not improve with medication; Fevers over 101.5, chills, sweats; Drainage or bleeding from the wound; Foul odor; Spreading areas of redness; Any other concerns Current Hospital Diet Patient's current hospital diet: Discharge Diet Recommended Diet: Regular Diet Procedures Procedures Performed: Right Knee Injection Of Calcium Phosphate To Treat Proximal Tibia Fracture; Right Knee Arthroscopy, Minor Synovectomy, Chondroplasty Pending Studies Studies pending at discharge: no Medical Emergencies . Who to Call and When: Medical Emergencies: If at any time you feel your situation is an emergency, please call 911 immediately. . Non-Emergent Contact Non-Emergency issues call your: Primary Care Provider Call Non-Emergent contact if: you have a fever, temperature is above 101.5, your pain is not controlled, your pain is worsening, wound has increased drainage, you have any medication questions . "Provider Documentation" section prepared by Young Wall. . VTE Core Measure Inpt VTE Proph given/why not?: Other Anticoagulation (Aspirin EC 81 mg), T.E.Johan [place] Drug Monitoring Program Search Results: patient reviewed within database, no issues identified, see additional documentation
--- NOTE | 2017-10-29 10:21 | OPERATIVE REPORT ---
DATE OF OPERATION: 10/29/2017 PREOPERATIVE DIAGNOSES: Insufficiency fracture of the right proximal medial tibial plateau as well as chondromalacia of the right knee and right knee synovitis. POSTOPERATIVE DIAGNOSES: Same. OPERATIONS PERFORMED: 1. Injection of calcium phosphate cement into the right proximal tibia to treat insufficiency fracture. 2. Right knee arthroscopy with minor synovectomy and chondroplasty. SURGEON: Carson Rose MD ASSISTANTS: Jennifer Wall and Pinky Ren. ESTIMATED BLOOD LOSS: 1 mL. IV FLUIDS: 800 mL crystalloid. SPECIMENS: None. COMPLICATIONS: None. IMPLANTS: 1 package of Heaven [employer]ill calcium phosphate cement. INDICATIONS: Ms. Zavaleta is a 61-year-old female who has had pain in the medial aspect of her right knee for several months. She has undergone extensive conservative management with physical therapy as well as nonsteroidal anti-inflammatories. Physical examination shows tenderness to palpation along the medial joint line, although she is maximally tender at the proximal medial tibia. MRI demonstrates an insufficiency fracture of the proximal medial tibia. I got a bone scan to rule out osteoporosis and she was near normal in terms of her bone mineral density. A short period of nonweightbearing did improve her symptoms consistent with a fracture related pain. After reviewing the risks and benefits of surgery, alternatives to surgery and expected outcomes, she elected to proceed. She does understand that she has some arthritis in her knee and that this could be contributing to her symptoms. After reviewing all the risks and benefits of surgery, she signed the informed consent form. OPERATIVE FINDINGS: Diagnostic arthroscopy showed: 1. The suprapatellar pouch was normal. 2. The undersurface of the patella showed a grade 4 chondral loss on the medial facet of the patella and grade 3 chondrosis on the lateral facet of the patella. 3. The trochlea showed grade 4 chondral wear along the medial trochlea and grade 3 along the central and lateral aspect of the trochlea. 4. The medial and lateral gutters were free of any loose bodies. 5. The anterior compartment of the knee showed some synovitis in the anterior aspect. 6. The medial compartment showed grade 3 chondral changes of the medial tibial plateau as well as a grade 2 chondral wear of the medial femoral condyle. Medial meniscus was intact. 7. The ACL and PCL were intact with the exception of a small amount of fraying along the margin of the ACL not compromising its structural integrity. 8. The lateral compartment showed a small area of grade 2 chondral wear of the lateral femoral condyle. She had grade 3 chondral wear of the lateral tibial plateau. The lateral meniscus was intact. The injection of calcium phosphate cement procedure took place before the arthroscopy. There was no cement that had tracked up into the knee at the time the arthroscopy was performed. A gentle chondroplasty was performed of the medial tibial plateau as well as lateral tibial plateau and lateral femoral condyle. Synovitis in the front of the knee was removed with electrocautery. DESCRIPTION OF OPERATION: The patient was identified in the preoperative holding area, where her surgical site was marked. She was given an adductor canal block by anesthesia and brought back to the main operating room, where she was placed on the operating room table and general anesthesia was administered. All bony prominences were padded. Perioperative antibiotics were administered. She was prepped and draped in the normal sterile fashion. Prior to incision, a multidisciplinary timeout was called. All in the room were in agreement. We began by bringing in the C-arm to localize the site for our incision for the subchondroplasty procedure. This was optimized on the AP view. We then moved the C-arm to the lateral view and confirmed the proper position and made our skin incision. We then placed the trocar for the calcium phosphate cement injection on the bone and drilled the trocar into the proximal medial tibia just below the subchondral plate in the previously identified area of her insufficiency fracture as seen on her preoperative MRI. Once this was complete, the inner sleeve was removed and the side vents were placed towards the subchondral surface of the bone. The cement had been mixed on the back table and was injected into the bone using a steady gentle digital pressure. Once some increasing resistance was met, the side vents were then turned 90 degrees facing medially and a continued cement injection took place until resistance was met. The side vents were then turned 180 degrees, so they were facing laterally. Cement injection was continued. Next, the cannula was pulled back approximately 1 cm and the same process was repeated. This was all done under fluoroscopic guidance to ensure that the cement was filling the proximal medial tibial plateau as planned, which it was and we are very happy with. No cement escaped the bone into the subcutaneous tissues. Once the injection was complete, we waited 8 minutes for the cement to harden. Once the 8 minutes was up, the trocar was removed from the bone. Five mL of 2% lidocaine with epinephrine was used to inject her portal sites. We made a lateral viewing portal followed by a medial working portal under direct visualization. We then performed a diagnostic arthroscopy revealing the above findings. Once diagnostic arthroscopy was complete, we introduced the shaver, which was used to perform a gentle chondroplasty of the medial tibial plateau and the lateral tibial plateau as well as the lateral femoral condyle. The ligamentum mucosum was excised. A minor synovectomy of the anterior knee was performed with the Arthrocare cautery wand. A small area of fraying along the margin of the ACL was debrided with the shaver, which again did not compromise the integrity of her ACL. At this point, final arthroscopic images were obtained. The instruments were removed from the knee. Her portals were closed with inverted 3-0 Monocryl sutures followed by Steri-Strips, 2 x 2s and Tegaderms. We injected 30 mL of Naropin with 10 mL into the joint and the remaining 20 mL into her subcutaneous tissues of her incisions. The patient was awoke from anesthesia and transferred to recovery room in stable condition. POSTOPERATIVE COURSE: The patient will be discharged home from the recovery room. She will be weightbearing as tolerated with a full knee range of motion. She will return to our clinic tomorrow to start physical therapy and review her postoperative pictures and restrictions. She will be on aspirin for DVT prophylaxis. I attest to the content of the Intraoperative Record and any orders documented therein. Any exceptions are noted below. JUVED
[2017-10-29 11:12] VITALS: TEMP 36.4
--- NOTE | 2017-10-29 11:40 | Anesthesia Progress Nt - [facility] ---
Anesthesia Post Op Note Date & Time Oct 29, 2017 at 11:40 Vital Signs Vital Signs Past 12 Hours Date Time Temp Pulse Resp B/P (MAP) Pulse Ox O2 Delivery O2 Flow Rate FiO2 10/29/17 11:12 36.4 77 16 154/86 (108) 96 Room Air 10/29/17 10:45 36.7 81 20 157/90 99 Room Air 10/29/17 10:45 154/93 10/29/17 10:42 76 11 18 10:42 75 11 100 18 10:40 157/90 18 10:37 74 15 10/29/18 10:37 75 15 100 10/29/18 10:36 74 13 156/84 100 18 10:36 75 13 10/29/18 10:31 73 10 10/29/18 10:31 73 10 144/96 100 10/29/18 10:26 76 14 10/29/18 10:26 77 14 159/76 100 18 10:21 79 18 18 10:21 81 18 140/74 96 18 10:16 72 27 100 10/29/18 10:16 72 27 10/29/18 10:15 144/78 10/29/18 10:14 73 17 10/29/18 10:14 72 17 99 10/29/18 10:11 131/70 10/29/18 10:09 74 17 98 10/29/18 10:09 73 17 10/29/18 10:05 142/77 18 10:04 36.9 80 12 141/74 99 Diffusion Mask 6 10/29/17 08:30 71 10/29/18 08:30 71 11 140/84 99 10/29/18 08:25 71 19 147/88 99 10/29/18 08:25 71 10/29/18 08:20 70 10/29/18 08:20 71 19 146/84 97 10/29/18 08:16 138/85 10/29/18 08:15 69 219/18 08:15 69 17 96 10/29/18 08:11 148/80 10/29/18 08:10 71 31 99 10/29/18 08:10 71 10/29/18 08:08 164/93 2/19/18 08:05 66 10/29/17 08:05 69 0 99 10/29/17 07:15 160/99 10/29/17 07:10 36.4 68 22 160/99 (119) 97 Room Air Notes Mental Status: alert / awake / arousable, participated in evaluation Pt Amnestic to Procedure: Yes Nausea / Vomiting: adequately controlled Pain: adequately controlled Airway Patency, RR, SpO2: stable & adequate BP & HR: stable & adequate Hydration State: stable & adequate Anesthetic Complications: no major complications apparent
[2017-10-29 11:48] VITALS: BP 141/75; PULSE 84; O2SAT 97
== END | disposition home or self-care (01) ==
LOC: X.SURG 06:36
PROVIDERS: ATTEND Orthopaedic Surgery
DX: M84.461A Pathological fracture, right tibia, initial encounter for fracture (principal); M94.261 Chondromalacia, right knee; M65.9 Synovitis and tenosynovitis, unspecified; I10 Essential (primary) hypertension; K21.9 Gastro-esophageal reflux disease without esophagitis; F32.9 Major depressive disorder, single episode, unspecified; J45.909 Unspecified asthma, uncomplicated; E78.5 Hyperlipidemia, unspecified; I25.10 Atherosclerotic heart disease of native coronary artery without angina pectoris; I25.2 Old myocardial infarction; Z90.11 Acquired absence of right breast and nipple; Z95.1 Presence of aortocoronary bypass graft; Z85.3 Personal history of malignant neoplasm of breast; Z90.12 Acquired absence of left breast and nipple; Z83.3 Family history of diabetes mellitus; Z82.49 Family history of ischemic heart disease and other diseases of the circulatory system; Z88.8 Allergy status to other drugs, medicaments and biological substances; Z88.2 Allergy status to sulfonamides; Z88.1 Allergy status to other antibiotic agents; Z79.82 Long term (current) use of aspirin; Z79.899 Other long term (current) drug therapy

== ENCOUNTER 2017-11-08 18:57 | Emergency (ER) | payer OTHER ==
[~2017-11-08] VITALS: Ht 160 cm; Wt 75.0 kg
[~2017-11-08 18:57] MED LIST changes: -ATROPINE SULFATE 0.1 MG/ML 5ML SYR IV PRN; -CEFAZOLIN 2000MG IV PUSH 15 ML IV SCH; -CLINDAMYCIN PHOS 150 MG/ML 2 ML VIAL IV SCH; -DEXAMETHASONE SOD INJ 4 MG/ML VIAL ONE; -EpHEDrine SULFATE INJ 50 MG/ML AMP ONE; -EpINEphrine INJ 1MG/ML AMP 1 MG/ML AMP ONE; -FENTANYL CITRATE INJ 50 MCG/1 ML 2 ML VIAL ONE; -HYDROmorphone INJ 2 MG/ML SYR/VIAL IV PRN; -KETOROLAC TROMETHAMINE 30 MG/ML VIAL IV. PRN; -LABETALOL HCL IV 5 MG/ML 20ML IV PRN; -LACTATED RINGER'S 1000ML 1,000 ML IV SCH; -LIDO 2%/EPINEPHRINE 1:100000 20 ML VIAL INFIL ONE; -LIDOCAINE HCL 2% 2 ML VIAL (20MG/ML) ONE; -MIDAZOLAM HCL 1 MG/ML 2ML VIAL ONE; -NRV/5 PO; -NURSING VERBAL MED ORDER ONE; -ONDANSETRON INJ 2 MG/ML 2 ML VIAL IV PRN; -ONDANSETRON INJ 2 MG/ML 2 ML VIAL ONE; -OXYCODONE/ACETAMINOPHEN 5-325 TAB PO PRN; -PRAV40TA2 PO; -PROPOFOL IV EMULSION 10 MG/ML 20 ML VIAL IV ONE; -ROPIVACAINE 0.5% 5 MG/ML 30 ML VIAL ONE; -SODIUM CHLORIDE 0.9% 1000ML 1,000 ML IV SCH
[2017-11-08 19:04] VITALS: TEMP 36.9; Ht 160 cm; Wt 75.0 kg
--- NOTE | 2017-11-08 19:23 | EMERGENCY ROOM VISIT NOTE ---
History Report prepared by Angelica: Misael Crespo Under the Supervision of: Dr. Satnam Pandya M.D. First contact with patient: 19:07 Chief Complaint: CHEST PAIN Stated Complaint: CHEST PAINS- CARDIAC HX History of Present Illness The patient is a 62 year old female who presents to the Emergency Room with complaints of constant, central, chest pain beginning one hour ago. She currently rates her discomfort a 3/10 in severity. The patient states her daughter is an addict, and the two of them started arguing with each other. She reports she developed her symptoms while arguing. The patient notes she her pain does not radiate, and she is feeling slightly better than her onset. She states she has a history of an ND and CABGx5 two years ago. The patient reports she was given nitroglycerin for chest discomfort after her surgery, but she could not find it. She notes she probably would not be here if she was able to find her nitroglycerin. The patient states she has not had to use it for a couple of months, and the last time she experienced discomfort was after an argument. She reports she took her blood pressure multiple times, and it continued to rise. The patient notes she had a few sips of a beer to try and relax. She states she has a history of GERD, and she took an acid instructional technology facilitator. The patient reports the acid instructional technology facilitator did not help. She notes her symptoms are very similar to when she had her ND two years ago. The patient states she recently had knee surgery for a stress fracture. She reports she is able to walk with a cane. The patient notes walking in the yard or on uneven ground makes her pain worsen. She denies fevers, chills, cough, congestion, taking blood thinners, shortness of breath, vomiting, and sweating. Source of History: patient Onset: one hour ago Position: chest Symptom Intensity: 3/10 Timing: constant Associated Symptoms: No fevers, No chills, No cough, No SOB, No vomiting Note: Associated symptoms: increased blood pressure Denies: congestion, taking blood thinners, sweating Review of Systems See HPI for pertinent positives and negatives. A total of ten systems were reviewed and were otherwise negative. Past Medical & Surgical Medical Problems: (1) Alcohol intoxication (2) Asthma, Unspecified (3) Calculus Of Kidney (4) Chest pain (5) Chin laceration (6) Chronic cholecystitis (7) Depressive Disorder Nec (8) Diverticulosis Colon (W/O Ment Of Hemorrhage) (9) Facial abrasion (10) Fall (11) Hypertension Nos (12) Lumbago (13) Malign Neopl Breast Nos (14) Mitral Valve Disorder (15) NSTEMI (non-ST elevated myocardial infarction) (16) Pneumonia, Organism Nos (17) Postprocedural Fever (18) Shortness of breath Surgical Problems: (1) History of mastectomy Family History Diabetes mellitus FH: heart disease FHx: cancer Hypertension Kidney disease Kidney stones Social History Smoking Status: Never Smoker Alcohol Use: occasionally Marital Status: Occupation Status: unemployed Current/Historical Medications Scheduled Amlodipine Besylate (Amlodipine Besylate), 5 MG PO QAM Aspirin (Aspirin Chewable), 81 MG PO QAM Cholecalciferol (Vitamin D3 Maximum Streng), 5,000 UNIT PO DAILY Coenzyme Q10 (Ubidecarenone) (Co Q-10), 1 CAP PO DAILY Lansoprazole (Prevacid), 30 MG PO QAM Meloxicam (Meloxicam), 15 MG PO Q6 Olmesartan Medoxomil (Olmesartan Medoxomil), 20 MG PO QAM Pravastatin Sodium (Pravastatin Sodium), 40 MG PO QAM Sertraline (Zoloft), 200 MG PO QAM Scheduled PRN Albuterol Hfa (Ventolin Hfa), 2 PUFFS INH Q4 PRN for SOB/Wheezing Beclomethasone Dip (Qvar), 2 PUFFS PO DAILY PRN for SOB/Wheezing Fluticasone Propionate (Nasal) (Flonase Allergy Relief), 2 SPRAYS CHRISTIANO DAILY PRN for ALLERGIC REACTION Allergies Coded Allergies: Iodinated Diagnostic Agents (Verified Allergy, Intermediate, HIVES, 11/08/17 ) Sulfa Antibiotics (Verified Allergy, Intermediate, HIVES, 11/08/17) Cefuroxime (Verified Allergy, Unknown, per records , 11/08/17) Niacin (Unverified Allergy, Unknown, HIVES, 11/08/17) POLLEN (Verified Allergy, Unknown, HAY FEVER, 11/08/17) Vancomycin (Verified Adverse Reaction, Intermediate, "ITCHY AND RED ALL OVER", 11/08/17) DURING 02/22/11 ADMISSION, PT RECEIVED 2GM IV VANCOMYCIN. COMPLAINED THAT HER "FEET GOT ITCHY AND SHE WAS ITCHY ALL OVER." AE OCCURED OVERNIGHT, SO UNFORTUNATELY WE DO NOT KNOW IF THE RATE WAS SLOWED. PT RECEIVED 1 DOSE OF BENADRYL- ITCHINESS RESOLVED. VANCOMYCIN D/C BY AND CHANGED TO DAPTO PER DR MONTEMAYOR. SANTOS Inhibitors (Verified Adverse Reaction, Mild, Cough, 11/08/17) Ceftriaxone (Verified Adverse Reaction, Mild, URTICARIA, 11/08/17) Egg (Verified Adverse Reaction, Mild, does not like., 11/08/17) can eat eggs in products and foods. does not like eggs individually [place] (Verified Adverse Reaction, Mild, upset stomach, 11/08/17) Adhesives (Verified Adverse Reaction, Unknown, tape per records , 11/08/17) Physical Exam Vital Signs Date Time Temp Pulse Resp B/P (MAP) Pulse Ox O2 Delivery O2 Flow Rate FiO2 11/09/17 00:08 73 18 122/66 95 11/08/17 22:48 66 18 156/80 97 Room Air 11/08/17 20:56 72 18 173/90 96 Room Air 11/08/17 19:44 95 Room Air 11/08/17 19:44 95 Room Air 11/08/17 19:19 71 11/08/17 19:04 36.9 70 18 170/96 96 Room Air Physical Exam GENERAL: Awake, alert, well-appearing, in no distress HENT: Normocephalic, atraumatic. Oropharynx unremarkable. Dry mucus membranes. EYES: Normal conjunctiva. Sclera non-icteric. NECK: Supple. No nuchal rigidity. FROM. No JVD. RESPIRATORY: Clear to auscultation. CARDIAC: Regular rate, normal rhythm. Extremities warm and well perfused. Pulses equal. ABDOMEN: Soft, non-distended. No tenderness to palpation. No rebound or guarding. No masses. RECTAL: Deferred. MUSCULOSKELETAL: Chest examination reveals no tenderness. The back is symmetrical on inspection without obvious abnormality. There is no CVA tenderness to palpation. No joint edema. LOWER EXTREMITIES: Calves are equal size bilaterally and non-tender. No edema. No discoloration. NEURO: Normal sensorium. No sensory or motor deficits noted. SKIN: No rash or jaundice noted. Medical Decision & Procedures ER Provider Diagnostic Interpretation: X-ray: Per my interpretation, radiologist review. CHEST ONE VIEW PORTABLE CLINICAL HISTORY: 62 years-old Female presenting with CHEST PAIN. TECHNIQUE: Portable upright AP view of the chest was obtained. COMPARISON: 01/11/2017. FINDINGS: Median sternotomy wires and bypass graft rings noted as well as mediastinal surgical clips. Cardiac silhouette top normal in size. Mild prominence of pulmonary vascular possibly due to mildly low lung volumes. No focal opacity. No large effusion or pneumothorax. Osseous structures normal. Upper abdomen normal. IMPRESSION: 1. Mildly low lung volumes and top normal cardiac size. No convincing evidence of acute cardiopulmonary disease. Electronically signed by: Carson Person M.D. 11/08/2017 8:10 PM Dictated Date/Time: 11/08/2017 8:09 PM Laboratory Results 11/08/17 19:30 Red Blood Count 3.87, Mean Corpuscular Volume 91.0, Mean Corpuscular Hemoglobin 32.0, Mean Corpuscular Hemoglobin Concent 35.2, Mean Platelet Volume 9.3, Neutrophils (%) (Auto) 51.0, Lymphocytes (%) (Auto) 35.2, Monocytes (%) (Auto) 7.3, Eosinophils (%) (Auto) 5.8, Basophils (%) (Auto) 0.5, Neutrophils # (Auto) 3.17, Lymphocytes # (Auto) 2.18, Monocytes # (Auto) 0.45, Eosinophils # (Auto) 0.36, Basophils # (Auto) 0.03 11/08/17 19:30 Test 11/08/17 19:30 11/08/17 22:32 White Blood Count 6.20 K/uL (4.8-10.8) Red Blood Count 3.87 M/uL (4.2-5.4) Hemoglobin 12.4 g/dL (12.0-16.0) Hematocrit 35.2 % (37-47) Mean Corpuscular Volume 91.0 fL (80-100) Mean Corpuscular Hemoglobin 32.0 pg (25-34) Mean Corpuscular Hemoglobin Concent 35.2 g/dl (32-36) Platelet Count 214 K/uL (130-400) Mean Platelet Volume 9.3 fL (7.4-10.4) Neutrophils (%) (Auto) 51.0 % Lymphocytes (%) (Auto) 35.2 % Monocytes (%) (Auto) 7.3 % Eosinophils (%) (Auto) 5.8 % Basophils (%) (Auto) 0.5 % Neutrophils # (Auto) 3.17 K/uL (1.4-6.5) Lymphocytes # (Auto) 2.18 K/uL (1.2-3.4) Monocytes # (Auto) 0.45 K/uL (0.11-0.59) Eosinophils # (Auto) 0.36 K/uL (0-0.5) Basophils # (Auto) 0.03 K/uL (0-0.2) RDW Standard Deviation 41.8 fL (36.4-46.3) RDW Coefficient of Variation 12.6 % (11.5-14.5) Immature Granulocyte % (Auto) 0.2 % Immature Granulocyte # (Auto) 0.01 K/uL (0.00-0.02) Anion Gap 10.0 mmol/L (3-11) Est Creatinine Clear Calc Drug Dose 51.0 ml/min Estimated GFR () 61.6 Estimated GFR (Non- 53.2 BUN/Creatinine Ratio 18.9 (10-20) Calcium Level 8.9 mg/dl (8.5-10.1) Magnesium Level 2.2 mg/dl (1.8-2.4) Total Bilirubin 0.2 mg/dl (0.2-1) Direct Bilirubin < 0.1 mg/dl (0-0.2) Aspartate Amino Transf (AST/SGOT) 20 U/L (15-37) Alanine Aminotransferase (ALT/SGPT) 26 U/L (12-78) Alkaline Phosphatase 80 U/L (45-117) Total Protein 7.1 gm/dl (6.4-8.2) Albumin 3.7 gm/dl (3.4-5.0) Lipase 172 U/L (73-393) Troponin I < 0.015 ng/ml (0-0.045) Ethyl Alcohol mg/dL < 3.0 mg/dl (0-3) Laboratory results reviewed by me Medications Administered Medications (Trade) Dose Ordered Sig/Razia Route Start Time Stop Time Status Last Admin Dose Admin Nitroglycerin (Nitrostat Tab) 0.4 mg NOW STAT SL 11/08/17 19:27 11/08/17 19:29 DC 11/08/17 19:43 0.4 MG Aspirin (Aspirin Chew) 162 mg NOW STAT PO 11/08/17 20:50 11/08/17 20:53 DC 11/08/17 20:55 162 MG Hydralazine HCl (HydrALAZINE INJ) 5 mg ONE ONCE IV. 11/08/17 23:45 11/08/17 23:46 DC 11/08/17 23:53 5 MG ECG Per My Interpretation Indication: chest pain Rate (beats per minute): 70 Rhythm: normal sinus Findings: other (Normal axis. Nonspecific T wave abnormality in V1 and V2) Comparison ECG Date: 08/03/16 Change: no significant change ED Course 1909: The patient was evaluated in room C10. A complete history and physical exam was performed. Medical Decision I reviewed the patient's past medical history, medications, and the nursing notes as described above. Differential diagnosis: Etiologies such as cardiac ischemia, aortic dissection, pulmonary embolism, pneumonia, pneumothorax, musculoskeletal, infections, pericarditis, myocarditis , esophageal rupture, gastrointestinal, as well as others were entertained. The patient is a 60-year-old woman with a past medical history of CAD status post CABG presents emergency department with episode of substernal chest pain that occurred around 6 PM in the setting of getting into an argument with her daughter per hpi. Of note the patient reports that the sensation is similar to her prior ND. On arrival the patient is in no acute distress, afebrile stable vital signs. She does report mild residual chest pressure 3 out of 10 which resolved after nitroglycerin. EKG is unremarkable and similar to prior without evidence of acute ischemia. Chest x-ray negative. Labs unremarkable including WBC within normal limits. Initial troponin negative 3 hours after onset of symptoms. However, Heart Score 4, moderate risk, thus given not recent provocative testing it is reasonable to consider admission. Case d/w Dr. Maciel, [facility] hospitalist, who evaluated patient and given patient is pain free will send delta troponin and if negative plan for close outpatient cardiology f/u. Medication Reconcilliation Current Medication List: was personally reviewed by me Blood Pressure Screening Patient's blood pressure: Elevated blood pressure Blood pressure disposition: Referred to PCP Impression Primary Impression: Substernal precordial chest pain Scribe Attestation The scribe's documentation has been prepared under my direction and personally reviewed by me in its entirety. I confirm that the note above accurately reflects all work, treatment, procedures, and medical decision making performed by me. Departure Information Referrals Cliff Vaughn M.D. (PCP) Darian Spain, DO Patient Instructions Chest Pain - [facility], My [facility] Additional Instructions Please follow up with your service writer tomorrow for re-evaluation. Your exam, EKG, chest xray, and lab results did not show signs of an emergent condition at this time. Return to the emergency department for worsening symptoms as described in the accompanying instructions.
[2017-11-08] MEDS ORDERED: NITROGLYCERIN 0.4 MG SL PER TAB CHARGE SL STA (19:27)
[2017-11-08 19:41] LABS: BASO % 0.5 %; BASO ABS # 0.03 K/uL (0-0.2); EOS % 5.8 %; EOS ABS # 0.36 K/uL (0-0.5); HEMATOCRIT 35.2 % (37-47); HEMOGLOBIN 12.4 g/dL (12.0-16.0); IG# 0.01 K/uL (0.00-0.02); LYMPH % 35.2 %; LYMPH ABS # 2.18 K/uL (1.2-3.4); MEAN CORPUSCULAR HGB CONC 35.2 g/dl (32-36); MEAN PLATELET VOLUME 9.3 fL (7.4-10.4); MONO % 7.3 %; MONO ABS # 0.45 K/uL (0.11-0.59); NEUT ABS # 3.17 K/uL (1.4-6.5); PLATELET COUNT 214 K/uL (130-400); RED CELL DISTRIBUTION WIDTH CV 12.6 % (11.5-14.5); RED CELL DISTRIBUTION WIDTH SD 41.8 fL (36.4-46.3)
[2017-11-08 19:44] VITALS: O2SAT 95
[2017-11-08 20:01] LABS: ALBUMIN 3.7 gm/dl (3.4-5.0); ALT/SGPT 26 U/L (12-78); BLOOD UREA NITROGEN 21 mg/dl (7-18); CALCIUM 8.9 mg/dl (8.5-10.1); CARBON DIOXIDE 20 mmol/L (21-32); CREATININE 1.11 mg/dl (0.60-1.20); GLUCOSE 82 mg/dl (70-99); LIPASE 172 U/L (73-393); POTASSIUM 3.8 mmol/L (3.5-5.1); SODIUM 138 mmol/L (136-145)
[2017-11-08 20:06] LABS: ALKALINE PHOSPHATASE 80 U/L (45-117); AST/SGOT 20 U/L (15-37); TOTAL PROTEIN 7.1 gm/dl (6.4-8.2)
--- NOTE | 2017-11-08 20:11 | DIAGNOSTIC IMAGING REPORT ---
CHEST ONE VIEW PORTABLE CLINICAL HISTORY: 62 years-old Female presenting with CHEST PAIN. TECHNIQUE: Portable upright AP view of the chest was obtained. COMPARISON: 01/11/2017. FINDINGS: Median sternotomy wires and bypass graft rings noted as well as mediastinal surgical clips. Cardiac silhouette top normal in size. Mild prominence of pulmonary vascular possibly due to mildly low lung volumes. No focal opacity. No large effusion or pneumothorax. Osseous structures normal. Upper abdomen normal. IMPRESSION: 1. Mildly low lung volumes and top normal cardiac size. No convincing evidence of acute cardiopulmonary disease. Electronically signed by: Carson Person M.D. 11/08/2017 8:10 PM Dictated Date/Time: 11/08/2017 8:09 PM
[2017-11-08] MEDS ORDERED: ASPIRIN 81 MG CHEW PO STA (20:50)
[2017-11-08] MEDS ORDERED: NRV/5 PO (21:37)
[2017-11-08] MEDS ORDERED: PRAV40TA2 PO (21:37)
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
[2017-11-08] MEDS ORDERED: HydrALAZINE HCL 20 MG/ML VIAL IV. ONE (23:45)
[2017-11-09 00:08] VITALS: BP 122/66; PULSE 73; O2SAT 95
== END 2017-11-09 00:09 | disposition home or self-care (01) ==
LOC: C.EDB 18:59 → C.EDC 11-09 00:09
DX: R07.2 Precordial pain (principal); I25.2 Old myocardial infarction; K21.9 Gastro-esophageal reflux disease without esophagitis; J45.909 Unspecified asthma, uncomplicated; I10 Essential (primary) hypertension; F32.9 Major depressive disorder, single episode, unspecified; Z95.1 Presence of aortocoronary bypass graft; Z85.3 Personal history of malignant neoplasm of breast; Z79.82 Long term (current) use of aspirin; Z91.041 Radiographic dye allergy status; Z88.2 Allergy status to sulfonamides; Z88.1 Allergy status to other antibiotic agents; Z88.8 Allergy status to other drugs, medicaments and biological substances; Z91.048 Other nonmedicinal substance allergy status; Z91.012 Allergy to eggs; Z83.3 Family history of diabetes mellitus; Z82.49 Family history of ischemic heart disease and other diseases of the circulatory system; Z84.1 Family history of disorders of kidney and ureter

== ENCOUNTER → 2017-12-11 | Outpatient (CLI) | payer OTHER ==
[~2017-12-11] MED LIST changes: +NRV/5 PO; -NTRSL3 UT; +PRAV40TA2 PO
== END | disposition home or self-care (01) ==
LOC: C.RDSM 10:08
PROVIDERS: ATTEND Orthopaedic Surgery
DX: Z98.890 Other specified postprocedural states (principal)

== ENCOUNTER 2018-04-03 04:56 | Inpatient (IN) | payer OTHER ==
[2018-02-20 14:31] VITALS: BMI 29.0
[2018-02-28 12:48] VITALS: BMI 31.0
--- NOTE | 2018-03-06 10:52 | History and Physical ---
History & Physical Date of Service Mar 06, 2018. History & Physical CHIEF COMPLAINT: Right knee pain. HISTORY OF PRESENT ILLNESS: This 62-year-old female presents to the clinic today for preoperative history and physical. Approximately 11 weeks ago, she underwent a right knee arthroscopy with synovectomy, chondroplasty and injection of calcium phosphate cement for a proximal tibial fracture. The patient states that this procedure did not alleviate her pain. She states that over the past few months. The pain is becoming increasingly worse. She has mild alleviation with the use of Excedrin. She states that at times she has difficulty walking and difficulty doing any type of up or down stair ambulation. She states she uses either a cane or a walker at home when she does have exacerbations of pain and at times she has had to use a wheelchair. The patient wishes to proceed with a right total knee arthroplasty because she has failed other conservative measures, which include physical therapy and injections into the right knee. PAST SURGICAL HISTORY: Colonoscopy, bilateral mastectomy, Mohs surgery, open reduction and internal fixation of her right elbow fracture, bilateral cataract removal, coronary artery bypass graft x5 tonsillectomy/adenoidectomy, wisdom tooth extraction, cholecystectomy, and right knee arthroscopy. PAST MEDICAL HISTORY: Breast cancer, myocardial infarction and coronary artery disease, hyperlipidemia, hypertension, asthma, renal calculi, renal failure, depression, migraine headaches and gastroesophageal reflux disease. FAMILY HISTORY: Positive for cancer, diabetes, myocardial infarction, pancreatitis and hypertension. ALLERGIES: THE PATIENT HAS MEDICATION ALLERGIES TO NIACIN, SULFA DRUGS, SANTOS INHIBITORS, IODINE CONTRAST, VANCOMYCIN, CEFTIN. SHE ALSO HAS ALLERGIES TO ADHESIVE BANDAGES AND CITRUS. CURRENT MEDICATIONS: 1. Albuterol CFC free 90 mcg/INH MDI 2 puffs 4 times daily as needed for wheezing, aspirin 81 mg oral tablet daily, calcium carbonate 750 mg oral tablet chewable daily, Excedrin, unknown dosage as needed, Flovent HFA 110 mcg/INH MDI 2 puffs twice daily, Imitrex 6 mg/0.5 mL subcutaneous solution 6 mg injected subcutaneously once as needed for migraine headaches and can be repeated once every hour, nitroglycerin 0.4 mg sublingual tablet 1 tab sublingually every 5 minutes as needed for chest pain, Norvasc 5 mg oral tablet 1 tab daily, olmesartan 20 mg oral tablet 1 tab daily, pravastatin 40 mg oral tablet 1 tab at bedtime, Prevacid 1 tablet daily, vitamin D3 5000 international unit oral tablet 1 tab daily, Zoloft 200 mg oral tablet daily. SOCIAL HISTORY: The patient denies a history of smoking or illicit drug use. States she consumes 2 alcoholic beverages per day. PHYSICAL EXAMINATION Skin: The patient's skin is normal in appearance. No open skin lesions or discharge. Eyes: Pupils are equal and react to light and accommodating. Extraocular movements are intact. Throat: Posterior pharynx is clear with absence of edema, erythema or exudate. Chest: The patient has removal of both breasts. Cardiovascular exam: The patient has a regular rate and rhythm with a grade 2/6 holosystolic murmur heard best over the right upper sternal border and cardiac apex. Lungs: Auscultation of lung jiménez reveals clear breath sounds throughout with no wheezing, rales or rhonchi. Abdomen is obese, nondistended, nontender with normoactive bowel sounds. Extremities: Right knee, the patient has tenderness to palpation over the medial joint line. She also has crepitation with active passive range of motion, but no varus or valgus laxity, negative AP drawer sign, negative Mary test. Her calf is soft and supple, nontender to palpation. She has no referred knee pain with dorsi or plantarflexion of the foot against resistance. She is neurovascularly intact in the right lower extremity. Neurological exam: Cranial nerves 2-12 are intact with no motor or sensory deficit. Psychological/general exam: The patient is alert and oriented x3 with proper grooming and hygiene. DIAGNOSES: Right knee arthritis. PROCEDURE: Right total knee arthroplasty. PLAN: The patient is scheduled to undergo this procedure with Dr. Carson Rose at the [facility] on March 28, 2018. Risks and complications of the surgery such as infection, bleeding, pain, scarring, nerve and blood vessel damage, weakness, wound problems, stiffness, incomplete relief of symptoms, heart attack, stroke, , hardware failure, loosening, wear, fracture, blood clots were explained to the patient during her visit today by Dr. Rose. Informed consent to perform the procedure was obtained. We have already obtained a preoperative medical clearance from the patient's hog feeder, Dr. Darian Spain. She has an appointment with her PCP next week, Dr. Cliff Vaughn and we will obtain clearance from him as well. Also, we currently have an updated EKG; however, we will need to obtain a CBC with diff, complete metabolic panel, PT, INR, PTT, blood type and screen, urinalysis, urine culture and chest x-ray, hemoglobin A1c and nasal swab for MRSA. The patient has her preanesthesia clearance testing this morning. She states she will obtain necessary testing at that time except we will do her chest x-ray in our clinic this morning. The patient states that she has a walker at home that she will bring with her on the day of her procedure. I instructed her about the use of antibiotics for any dental procedures after this surgery. I also gave her information about in-home therapy that she would like to receive from [facility]. I gave her some information on discharge planning from the hospital. I advised her that she will be scheduled for a 2-week postoperative followup with Carole Watson, on April 10 at 12:45 for postoperative followup. She will be provided with prescriptions for narcotic pain medication upon discharge from the hospital along with Extra Strength Tylenol and Celebrex and at that time, I will provide a handwritten prescription for PT, OT 2-3 times weekly for 6 weeks to evaluate and treat. The patient was provided with a handicap packet that she can obtain for up to 6 months after the procedure. All other questions and concerns were addressed and answered for the patient during her visit today. She and her verbalized understanding of all information provided. Thanked us for the care they received and states that if questions or concerns that should arise prior to the procedure date they will contact the clinic accordingly.
--- NOTE | 2018-03-06 11:00 | PAT Medication Instructions ---
Service Date Mar 06, 2018. Current Home Medication List Albuterol Hfa (Ventolin Hfa), 2 PUFFS INH Q4 PRN for SOB/Wheezing Amlodipine Besylate (Amlodipine Besylate), 5 MG PO QAM Aspirin (Aspirin 81), 1 TAB PO QAM Rxvhjkm-Gbywqgkupmwoc-Esmsescg (Excedrin Extra Strength), 2 TAB PO QD PRN for Pain Cholecalciferol (Vitamin D3 Maximum Streng), 5,000 UNIT PO QAM Coenzyme Q10 (Ubidecarenone) (Co Q-10), 1 CAP PO QAM Fluticasone Propionate (Flovent Hfa), 2 PUFFS INH BID Fluticasone Propionate (Nasal) (Flonase Allergy Relief), 2 SPRAYS CHRISTIANO DAILY PRN for ALLERGIC REACTION Lansoprazole (Prevacid), 30 MG PO QAM Meloxicam (Meloxicam), 15 MG PO QD PRN for Pain Olmesartan Medoxomil (Olmesartan Medoxomil), 20 MG PO QAM Pravastatin Sodium (Pravastatin Sodium), 40 MG PO QAM Sertraline (Zoloft), 200 MG PO QAM Medication Instructions For Your Scheduled Surgery -Check with your surgeon for: Meloxicam (Meloxicam), 15 MG PO QD PRN for Pain - Hold the following medications 2 weeks prior to surgery: Coenzyme Q10 (Ubidecarenone) (Co Q-10), 1 CAP PO QAM - Hold the following medications 3 DAYS prior to surgery per surgeon: Waecnsj-Gifltxxdgaznp-Kmmuhxyv (Excedrin Extra Strength), 2 TAB PO QD PRN for Pain - Hold the following medications the morning of surgery: Cholecalciferol (Vitamin D3 Maximum Streng), 5,000 UNIT PO QAM Olmesartan Medoxomil (Olmesartan Medoxomil), 20 MG PO QAM - Take the following medications the morning of surgery with a sip of water: Albuterol Hfa (Ventolin Hfa), 2 PUFFS INH Q4 PRN for SOB/Wheezing (if needed, and bring with you to the hospital) Amlodipine Besylate (Amlodipine Besylate), 5 MG PO QAM Aspirin (Aspirin 81), 1 TAB PO QAM Fluticasone Propionate (Flovent Hfa), 2 PUFFS INH BID Fluticasone Propionate (Nasal) (Flonase Allergy Relief), 2 SPRAYS CHRISTIANO DAILY PRN (if needed) Lansoprazole (Prevacid), 30 MG PO QAM Pravastatin Sodium (Pravastatin Sodium), 40 MG PO QAM Sertraline (Zoloft), 200 MG PO QAM - Take the following medications as scheduled the night before surgery: Albuterol Hfa (Ventolin Hfa), 2 PUFFS INH Q4 PRN for SOB/Wheezing (if needed) Fluticasone Propionate (Flovent Hfa), 2 PUFFS INH BID Fluticasone Propionate (Nasal) (Flonase Allergy Relief), 2 SPRAYS CHRISTIANO DAILY PRN (if needed) If you have any questions please call us at [phone] or [phone] or [phone]
[2018-03-06 12:07] LABS: BASO % 0.6 %; BASO ABS # 0.03 K/uL (0-0.2); EOS % 5.9 %; EOS ABS # 0.29 K/uL (0-0.5); HEMATOCRIT 39.6 % (37-47); HEMOGLOBIN 13.4 g/dL (12.0-16.0); LYMPH % 34.5 %; LYMPH ABS # 1.71 K/uL (1.2-3.4); MEAN CELL VOLUME 94.5 fL (80-100); MEAN CORPUSCULAR HGB CONC 33.8 g/dl (32-36); MONO % 4.8 %; MONO ABS # 0.24 K/uL (0.11-0.59); NEUT % 54.2 %; NEUT ABS # 2.68 K/uL (1.4-6.5); PLATELET COUNT 194 K/uL (130-400); RED CELL DISTRIBUTION WIDTH CV 13.2 % (11.5-14.5); RED CELL DISTRIBUTION WIDTH SD 45.8 fL (36.4-46.3); WHITE BLOOD COUNT 4.95 K/uL (4.8-10.8)
[2018-03-06 12:16] LABS: INR 0.9 (0.9-1.1); PTT PATIENT 23.7 SECONDS (21.0-31.0)
[2018-03-06 12:34] LABS: ALBUMIN 3.7 gm/dl (3.4-5.0); CALCIUM 9.1 mg/dl (8.5-10.1); CREATININE 0.88 mg/dl (0.60-1.20); POTASSIUM 3.8 mmol/L (3.5-5.1); TOTAL PROTEIN 7.2 gm/dl (6.4-8.2)
[2018-03-06 12:47] LABS: HEMOGLOBIN A1C 5.6 % (4.5-5.6)
[~2018-04-03] VITALS: Ht 160 cm; Wt 80.2 kg
[2018-04-03] VITALS (9 sets, daily range): BP systolic 127–172; BP diastolic 66–92; PULSE 66–81; TEMP 36.4–36.8; O2SAT 93–99; Ht 160 cm; Wt 80.2 kg
[~2018-04-03 04:56] MED LIST changes: +ACETAMINOPHEN 500 MG TAB PO SCH; -ASPCH81X PO; +ASPI-391 PO; +ASPI-435 PO; +CEFAZOLIN 2000MG IV PUSH 15 ML IV SCH; +CHECK SCOPOLAMINE PATCH PLACEMENT SCH; +CeleBREX 200 MG CAP PO SCH; +DEXAMETHASONE 4 MG TAB PO SCH; +FAMOTIDINE 20 MG TAB PO SCH; +FLVHFA44 INH; +LACTATED RINGER'S 1000ML 1,000 ML IV SCH; +LACTATED RINGER'S 1000ML 500 ML IV SCH; +LACTATED RINGER'S 1000ML IV SCH; -QVRINH80 PO; +ROPIVACAINE 5MG/ML 30 ML 150 MG, BUPIVACAINE 0.5% MPF INJ 30 ML, EpINEphrine HCL INJ 0.... INFIL SCH; +SCOPOLAMINE 1.5 MG TDSY TD SCH; +TRAMADOL HCL 50 MG TAB PO SCH; +TRANEXAMIC ACID INJ 1,000 MG x 1 bag Topical TOP SCH; +TRANEXAMIC ACID INJ 1,000 MG x 2 Bags IV SCH
[2018-04-03] MEDS ORDERED: LACTATED RINGER'S 1000ML 500 ML IV SCH (06:00)
[2018-04-03] MEDS: TRANEXAMIC ACID INJ 1,000 MG x 2 Bags TOP SCH ×6 (06:00→09:01)
[2018-04-03] MEDS ORDERED: LACTATED RINGER'S 1000ML IV SCH (06:00)
[2018-04-03] MEDS ORDERED: FAMOTIDINE 20 MG TAB PO SCH (06:00)
[2018-04-03] MEDS ORDERED: CEFAZOLIN 2000MG IV PUSH 15 ML IV SCH (06:00)
[2018-04-03] MEDS ORDERED: SCOPOLAMINE 1.5 MG TDSY TD SCH (06:00)
[2018-04-03] MEDS ORDERED: ACETAMINOPHEN 500 MG TAB PO SCH (06:00)
[2018-04-03] MEDS ORDERED: DEXAMETHASONE 4 MG TAB PO SCH (06:00)
[2018-04-03] MEDS ORDERED: TRAMADOL HCL 50 MG TAB PO SCH (06:00)
[2018-04-03] MEDS ORDERED: ROPIVACAINE 5MG/ML 30 ML 150 MG, BUPIVACAINE 0.5% MPF INJ 30 ML, EpINEphrine HCL INJ 0.... INFIL SCH ×8 (06:00)
[2018-04-03] MEDS ORDERED: CeleBREX 200 MG CAP PO SCH (06:00)
[2018-04-03] MEDS ORDERED: LACTATED RINGER'S 1000ML 1,000 ML IV SCH (06:00)
[2018-04-03] MEDS ORDERED: LIDOCAINE HCL 2% 2 ML VIAL (20MG/ML) ONE (06:32)
[2018-04-03] MEDS ORDERED: MIDAZOLAM HCL 1 MG/ML 2ML VIAL ONE ×3 (06:32→08:14)
[2018-04-03] MEDS ORDERED: PROPOFOL IV EMULSION 10 MG/ML 20 ML VIAL ONE (06:32)
[2018-04-03] MEDS ORDERED: BUPIVACAINE 0.5 % 5 MG/1 ML PF 10ML VIAL ONE (06:33)
[2018-04-03] MEDS ORDERED: EpINEphrine INJ 1MG/ML AMP 1 MG/ML AMP ONE (06:33)
[2018-04-03] MEDS ORDERED: ROPIVACAINE 0.5% 5 MG/ML 30 ML VIAL ONE (06:33)
[2018-04-03] MEDS ORDERED: DEXAMETHASONE SOD INJ 4 MG/ML VIAL ONE (06:33)
[2018-04-03] MEDS ORDERED: POVIDONE-IODINE OP SOLN 30 ML BTL ONE (06:35)
[2018-04-03] MEDS ORDERED: ORTHO JOINT ANESTHETIC ONE (06:35)
[2018-04-03] MEDS ORDERED: FENTANYL CITRATE INJ 50 MCG/1 ML 2 ML VIAL ONE (06:37)
[2018-04-03] MEDS ORDERED: CEFAZOLIN SOD 2000MG/15 ML IV PUSH ONE (06:50)
[2018-04-03] MEDS ORDERED: EpHEDrine SULFATE 50MG/5ML SYR ONE (07:35)
--- NOTE | 2018-04-03 09:11 | [facility] Post Operative Brief Note ---
Immediate Operative Summary Operative Date Apr 03, 2018. Pre-Operative Diagnosis Right Knee Arthritis Post-Operative Diagnosis Right Knee Arthritis Procedure(s) Performed Right Total Knee Arthroplasty Surgeon Dr Woo Index Editor Surgeon(s) Juan Manuel Escudero Estimated Blood Loss 100cc Findings Consistent with Post-Op Diagnosis Fluids (cc crystalloids) 1500 Specimens A: Right Knee Bone and Tissue Drains None Anesthesia Type MAC Spinal Regional Complication(s) none Disposition Accompanied Pt To Recover: no Disposition: Recovery Room / PACU
[2018-04-03] MEDS ORDERED: ALUMINUM/MAGNESIUM/SIMETH (MAALOX MAX) 30 ML UDC PO PRN (09:30)
[2018-04-03] MEDS ORDERED: FLUTICASONE PROPIONATE NA SPR 16 GM BTL NAE PRN (09:30)
[2018-04-03] MEDS ORDERED: MoRPHine SULFATE 2 MG/ML CARP IV PRN (09:30)
[2018-04-03] MEDS ORDERED: DiphenhydrAMINE HCL 50 MG/ML VIAL IV PRN (09:30)
[2018-04-03] MEDS ORDERED: ALBUTEROL HFA 8 GM INHALER INH PRN (09:30)
[2018-04-03] MEDS ORDERED: BISACODYL 10 MG SUPP PR PRN (09:30)
[2018-04-03] MEDS ORDERED: ONDANSETRON INJ 2 MG/ML 2 ML VIAL IV PRN (09:30)
[2018-04-03] MEDS ORDERED: MAGNESIUM HYDROXIDE SUSP 30 ML UDC PO PRN (09:30)
[2018-04-03] MEDS ORDERED: METOCLOPRAMIDE HCL INJ 5 MG/ML 2 ML VIAL IV PRN (09:30)
--- NOTE | 2018-04-03 09:59 | DIAGNOSTIC IMAGING REPORT ---
R KNEE 2 VIEWS ROUTINE CLINICAL HISTORY: Degenerative arthritis. Postoperative study. COMPARISON: 03/06/2018 DISCUSSION: There are postsurgical changes of a total right knee arthroplasty. The femoral tibial components appear well seated. There appears to be evidence of a medial proximal tibial osteotomy with placement of a bone graft. Correlation with surgical history could confirm this impression. There is air within soft tissues consistent with recent surgery. IMPRESSION: Postsurgical changes of a total right knee arthroplasty and suspected proximal tibial osteotomy with placement of a bone graft Electronically signed by: Rinku Mcginnis M.D. 04/03/2018 9:58 AM Dictated Date/Time: 04/03/2018 9:56 AM
[2018-04-03] MEDS ORDERED: MoRPHine SULFATE 4 MG/ML 1 ML CARP\\VIAL IV PRN (10:00)
--- NOTE | 2018-04-03 10:12 | OPERATIVE REPORT ---
DATE OF OPERATION: 04/03/2018 PREOPERATIVE DIAGNOSIS: Right knee osteoarthritis. POSTOPERATIVE DIAGNOSIS: Right knee osteoarthritis. OPERATION PERFORMED: Right total knee arthroplasty. SURGEON: Carson Rose MD ASSISTANTS: Juan Manuel Murdock MD and Mckayla Oden PA-C. ESTIMATED BLOOD LOSS: 100 mL IV FLUIDS: 1500 mL crystalloid. URINE OUTPUT: Not recorded. SPECIMENS: Distal femur and proximal tibia. COMPLICATIONS: None. IMPLANTS: 1. DePuy Sigma size 3 posterior stabilized cemented femur. 2. DePuy MBT Keel rotating platform tibial tray, size 2.5 cemented. 3. A size 35 oval dome patella. 4. DePuy size 3, 10 mm thickness polyethylene insert to match the femur. INDICATIONS: Ms. Zavaleta is a 62-year-old female who has had knee pain for several years that previously was responding to conservative measures with injections. She had some bone edema in her proximal tibia and therefore underwent an injection of calcium phosphate cement and a knee arthroscopy procedure about 4 months ago. Unfortunately, this failed to relieve her symptoms and she was noted to have more extensive osteoarthritis findings at arthroscopy than were evident on her x-rays and her preoperative MRI. Her pain is affecting her activities of daily living and she is having to use an assistive device. After reviewing all the risks and benefits of surgery, she elected to proceed with a total knee replacement. All questions were answered. Informed consent was signed. OPERATIVE FINDINGS: There were diffuse degenerative changes along the medial compartment extending up into the trochlea. A cemented total knee arthroplasty was performed without complication. DESCRIPTION OF OPERATION: Patient was identified in the preoperative holding area where her surgical site was marked. She was given an adductor canal block followed by a spinal then brought back to the main operating room where she was placed on the operating table and general anesthesia was administered. All bony prominences were padded. Perioperative antibiotics were administered. She was prepped and draped in the normal sterile fashion. Prior to incision, a multidisciplinary timeout was called. All in the room were in agreement. We began by exsanguinating the limb with an Esmarch bandage. Tourniquet was inflated to 250 mmHg. A 14 cm long incision was made. We dissected the subcutaneous tissues and raised full thickness flaps above the fascia. Arthrotomy was made. Patella was everted. The patella measured to 20 mm of thickness. We resected the patella to a thickness of 11 mm. The holes for the button were drilled and the trial button was placed resizing back to a 20 mm thickness recreating her anatomy. Next, the knee was flexed up and the distal femoral sizing guide was placed. This was set at 5 degrees of valgus. This was for an 11 mm distal femoral resection. The distal femoral cut was made. The cruciates were excised and the tibia was subluxating forward. 10 mm were cut off the less involved lateral tibial plateau. The calcium phosphate cement was evident in the proximal medial tibia. We then checked our extension gap, which was intact and symmetric. We then sized her to a 2.5 mm tibia. We flexed her back up and placed the distal femoral sizing jig, which sized to a size 3. The 3-degree external rotation jig was placed and the holes were drilled. We checked the holes off of [place]'s line and the epicondylar axis, which we were happy with. We then placed a 4-in-1 cutting block and made our anterior, posterior and chamfer cuts without difficulty. Femoral trial was used to check the trueness of our cuts which we were happy with. We then placed the box cutting guide and made the box cut without difficulty. The tibia was then re-exposed. We placed the 2.5 tibial tray to cover the bony surface and pinned it into position, slight external rotation. The tower was placed and we made our intramedullary drill followed by the keel punch. The trial femoral and tibial trial 10 mm polyethylene were then placed. She was brought through a full range of motion. There was excellent patellar tracking and excellent stability throughout full range of motion. At this point, the femoral, tibial trial were removed, half of the periarticular cocktail was then injected into the periosteal surfaces as well as into the posterior capsule, taking great care to avoid the neurovascular bundle and peroneal nerve. We then irrigated the cut bony surfaces and dried them. The cement was mixed on the back table. The implants were impacted into position and excess cement was removed. The 10 mm polyethylene trial was placed and the knee was brought into full extension and held until the cement was dry. The patella was cemented and clamped as well until the cement was dry. While cement was drying, we irrigated the knee out with Betadine, which was left to sit for 3 minutes. Tourniquet was let down. The hemostasis was achieved. Once the cement was completely cured, the knee was again brought through full range of motion. We were again happy with our stability. We therefore removed the trial and placed the real polyethylene liner and began to close. The arthrotomy was closed with 0 Vicryl sutures as well as #2 Ethibond. The subcutaneous fat layer was closed with inverted 0 Vicryls. The deep dermis was closed with a running 2-0 Quill and the skin was closed with a subcuticular 3-0 Monocryl. Steri-Strips were applied followed by an Aquacel dressing. Of note, we did inject the knee with 100 mL of tranexamic acid for postoperative hemostasis. Patient was placed into a sterile dressing. She was transferred to the recovery room in stable condition. POSTOPERATIVE COURSE: The patient will be admitted to the floor overnight for pain control and monitoring. She will be on aspirin for DVT prophylaxis. X-rays will be obtained in the recovery room. I attest to the content of the Intraoperative Record and any orders documented therein. Any exception s are noted below.
[2018-04-03] MEDS: D5W AND 1/2NSS + 20MEQ KCL 1,000 ML IV SCH ×2 (12:23→22:14)
[2018-04-03] MEDS: CEFAZOLIN IV 2,000 MG in SYRINGE 0 ML IV SCH ×2 (14:10→22:13)
[2018-04-03] MEDS: ACETAMINOPHEN 500 MG TAB PO SCH ×2 (14:10→22:13)
--- NOTE | 2018-04-03 15:02 | Discharge Instructions ---
Discharge Instructions Date of Service Apr 03, 2018. Admission Reason for Admission: Right Knee Arthritis Discharge Discharge Diagnosis / Problem: right knee arthritis Discharge Goals Goal(s): Decrease discomfort, Improve function, Increase independence Activity Recommendations Activity Limitations: as noted below Lifting Limitations: until after follow-up appointment Exercise/Sports Limitations: until after follow-up appointment May Resume Sexual Activity: after follow-up appointment Shower/Bathe: tomorrow, keep incision dry Driving or Machine Use: Non driving until cleared by orthropedic specialist Weightbearing Status: Right toe touch (with immobilizer and walker assistance) . Instructions / Follow-Up Instructions / Follow-Up Post-operative Instructions Dear Patient and Family/Friends, Before you are discharged from the hospital, it is important to know what to expect when you get home after surgery. To that end, we have created this sheet of discharge instructions which covers many commonly asked questions. Make sure you go through this sheet in its entirety with your nurse before you are discharged. Please note that we will go over the specifics of your surgery and recovery when you return for your first post-operative visit. Sincerely, Dr. Rose Pain Expect to be in a fair amount of pain after surgery. Remember, our goal is not to eliminate your pain, but to make it tolerable. It is a good idea to stay ahead of your pain by taking the medications you were prescribed once you get home. Typically, the pain starts improving 3-7 days after surgery. You should start weaning off the narcotic pain medication (oxycodone, hydrocodone, hydromorphone, morphine) as soon as your pain improves. Please call our office if your pain is not adequately controlled. Ice Ice your operative site at least 5 times a day for 15-30 minutes at a time. Make sure you have a thin cloth between the ice or cooling unit and your skin to prevent negrete bite. This is especially important if you received a nerve block. Continue icing your operative site for the first 5-7 days after surgery , then as needed. Diet/Nausea/Vomiting Start by drinking clear liquids and eating crackers. If you can tolerate this, then you may resume your normal diet. If you feel nauseated or vomit, take Zofran/ondansetron (if prescribed). Please call our office if you have intractable nausea or vomiting, or, if after hours, you may go to the Emergency Room for help. Constipation Constipation is a common side effect of narcotic pain medication. If you have not had a bowel movement within 2 days after surgery, we recommend purchasing an over the counter laxative such as Milk of Magnesia, Dulcolax, or Miralax from a local pharmacy, and taking it as instructed. Call our clinic if any questions. Slings and Braces If you were placed in a sling or brace, it must be worn at all times, including sleep. You may remove your sling or brace for physical therapy, home exercises , and showering. The length of time you will be in your brace and range of motion restrictions depends on what surgery you had; these details will be reviewed at your first post-operative appointment. Nerve block The anesthesia team sometimes places a nerve block to help with post-operative pain control. This results in significant numbness and inability to move the extremity. The nerve block usually wears off in 8-12 hours, but sometimes can last up to 24 hours. Please call our office if you are still unable to move your extremity after 24 hours, unless you received a pain pump to take home. Nerve blocks typically wear off quickly, so start taking pain medication as soon as you start feeling soreness near your surgical site. Weight bearing and Range of Motion. Do not bear any weight through your operative extremity immediately after surgery. If you had upper extremity surgery, do not lift anything with that arm. If you are in a knee brace, keep it locked in place until your follow-up. We will discuss your weight bearing, range of motion, and lifting restrictions in detail at your first post-operative appointment. Continuous Passive Motion (CPM) Machine If you were prescribed a CPM machine, it will start after your first post- operative appointment, at which time we will give you instructions on the range of motion settings and duration of treatment Physical therapy You will be given a prescription for physical therapy or occupational therapy at your first post-operative appointment. Typically, patients start therapy within 1 week of surgery Wound care and showering We will inspect your wound at your first post-operative visit, and may do a dressing change at that time. Most patients will be in a water-proof dressing that is removed 14 days after surgery. It is normal to see some dried blood on the dressing. Do not remove your dressing, paper strips or sutures yourself unless you are given permission. Showering is allowed the day after surgery. Do not scrub or remove any dressings. The wound should not be submerged underwater (i.e. in a bathtub or pool) until 4 weeks after surgery RITCHIE stockings If you were given white stockings, these are to be worn at all times except to shower (on both legs) for the first 2 weeks after surgery. Driving You may not drive while taking narcotic pain medication or while in a cast, splint, sling or brace. You, the patient, need to make the final determination about when you are safe to drive, however, the earliest you may consider driving after surgery is below: Hand/Wrist/Elbow Surgery: 3 days Shoulder Surgery: 2 weeks Hip,/Knee/Ankle Surgery: 4 weeks Fracture repair: 6 weeks Return to Work Your return to work depends on what surgery was done and what type of work you do. Please bring any paperwork your employer needs completed to your first post -operative visit. Also, bring a description of your job duties, as this helps us to understand what risks you may face at work. Travel Avoid long distance travel (greater than 1 hour) in airplanes and cars for the first 6 weeks after surgery. If you must travel, you need to have a Doppler ultrasound done before you travel to rule out a blood clot in your legs. Follow-up You should have a follow-up appointment already scheduled 1-2 days after surgery. If not, please contact our office to make this appointment before you leave the hospital. When to call the office It is normal to have swelling and bruising in the limb that was operated on. This will improve with time. It is also normal to have fevers for the first 2 days after surgery. Reasons you should call your doctor include: Uncontrolled pain; Nausea, vomiting, or constipation that does not improve with medication; Fevers over 101.5, chills, sweats; Drainage or bleeding from the wound; Foul odor; Spreading areas of redness; Any other concerns Current Hospital Diet Patient's current hospital diet: Regular Diet Discharge Diet Recommended Diet: Regular Diet Procedures Procedures Performed: Right Total Knee Arthroplasty Pending Studies Studies pending at discharge: no Laboratory Results Hemoglobin A1c Test 03/06/18 11:12 Range/Units Estimated Average Glucose 114 mg/dl Hemoglobin A1c 5.6 4.5-5.6 % Medical Emergencies . Who to Call and When: Medical Emergencies: If at any time you feel your situation is an emergency, please call 911 immediately. . Non-Emergent Contact Non-Emergency issues call your: Primary Care Provider Call Non-Emergent contact if: you have a fever, temperature is above 101.5, your pain is not controlled, your pain is worsening, wound has increased drainage, you have any medication questions . "Provider Documentation" section prepared by [employer]. . Retail Buyer Recommendations Retail Buyer Recommendations: Increase Aspirin to 81 mg twice daily for 30 days post operatively for prevention of blood clots. Purchase Extra Strength Tylenol and take 2 tabs every 6-8 hrs for pain relief Restart your Meloxicam for pain relief. Use the prescription Oxycodone for breakthrough pain. Leave your dressing in place until your 2 wk follow up at [facility]. [place] Drug Monitoring Program Search Results: patient reviewed within database, no issues identified, see additional documentation
[2018-04-03] MEDS ORDERED: RXC5 PO (15:03)
[2018-04-03] MEDS: CHECK SCOPOLAMINE PATCH PLACEMENT SCH (15:28)
--- NOTE | 2018-04-03 15:51 | Anesthesiology Progress Note ---
Anesthesia Post Op Note Date & Time Apr 03, 2018 at 15:51 Vital Signs Pain Intensity: 0.0 Vital Signs Past 12 Hours Date Time Temp Pulse Resp B/P (MAP) Pulse Ox O2 Delivery O2 Flow Rate FiO2 04/03/18 15:02 36.5 66 16 127/66 (86) 93 Room Air 04/03/18 13:15 36.6 70 20 160/76 (104) 98 Room Air 73 04/03/18 12:11 36.6 72 18 156/84 (108) 97 Room Air 04/03/18 11:15 36.5 69 18 154/88 (110) 98 Nasal Cannula 2.0 04/03/18 10:45 36.5 67 18 162/80 (107) 99 Nasal Cannula 2.0 04/03/18 10:15 95 Nasal Cannula 2.0 04/03/18 10:15 36.4 73 16 147/82 (103) 95 Nasal Cannula 2.0 04/03/18 10:15 Nasal Cannula 2.0 04/03/18 09:58 67 17 04/03/18 09:58 67 17 98 04/03/18 09:56 151/85 04/03/18 09:53 66 17 04/03/18 09:53 66 17 100 04/03/18 09:51 149/79 04/03/18 09:50 36.6 67 18 149/79 (90) 99 Nasal Cannula 2 04/03/18 09:48 67 17 98 04/03/18 09:48 67 17 04/03/18 09:47 67 21 99 04/03/18 09:47 67 21 04/03/18 09:46 140/75 04/03/18 09:42 70 19 100 04/03/18 09:42 69 19 04/03/18 09:41 140/77 04/03/18 09:40 69 14 99 04/03/18 09:40 69 14 04/03/18 09:36 139/80 04/03/18 09:35 74 18 100 04/03/18 09:35 74 18 04/03/18 09:31 132/85 04/03/18 09:30 73 18 97 04/03/18 09:30 74 18 04/03/18 09:30 36.4 78 16 132/85 (99) 98 Nasal Cannula 3 04/03/18 05:39 36.4 70 20 172/92 99 Room Air Notes Mental Status: alert / awake / arousable, participated in evaluation Pt Amnestic to Procedure: Yes Nausea / Vomiting: adequately controlled Pain: adequately controlled Airway Patency, RR, SpO2: stable & adequate BP & HR: stable & adequate Hydration State: stable & adequate Anesthetic Complications: no major complications apparent
--- NOTE | 2018-04-03 16:43 | Medical Consult ---
Consultation Date of Consultation: Apr 03, 2018. Attending Physician: Carson Rose MD History of Present Illness 62y/oF with hx of HLD, HTN, CAD s/p NSTEMI with CABG in 2016, breast cancer s/p bilateral mastectomy, RAD, alcohol abuse (2 beers per day; no hx of withdrawal) admitted for R knee arthroplasty post op day 0. Pt reports adequate pain coverage. Denies any symptoms at this point: no f/c, BAKER/dizziness, sob, cp, abdominal pain, n/v, d/c, dysuria. No other concerns at this time. Past Medical/Surgical History Medical Problems: (1) Enlarged submental lymph node Status: Acute (2) Osteoarthritis of right knee Status: Acute (3) Pancreatitis Status: Acute (4) Precordial chest pain Status: Acute (5) Precordial chest pain Status: Acute (6) Substernal precordial chest pain Status: Acute (7) Unstable angina Status: Acute Family History Diabetes mellitus FH: heart disease FHx: cancer Hypertension Kidney disease Kidney stones Social History Smoking Status: Former Smoker Alcohol Use: drinks 2 beers per day Marital Status: Occupation Status: unemployed Allergies Coded Allergies: Iodinated Diagnostic Agents (Verified Allergy, Intermediate, HIVES, ) Sulfa Antibiotics (Verified Allergy, Intermediate, HIVES, 04/03/18) Cefuroxime (Verified Allergy, Unknown, HIVES, 04/03/18) Niacin (Unverified Allergy, Unknown, HIVES, 04/03/18) POLLEN (Verified Allergy, Unknown, HAY FEVER, 04/03/18) Vancomycin (Verified Adverse Reaction, Intermediate, "ITCHY AND RED ALL OVER", 04/03/18) DURING 02/22/11 ADMISSION, PT RECEIVED 2GM IV VANCOMYCIN. COMPLAINED THAT HER "FEET GOT ITCHY AND SHE WAS ITCHY ALL OVER." AE OCCURED OVERNIGHT, SO UNFORTUNATELY WE DO NOT KNOW IF THE RATE WAS SLOWED. PT RECEIVED 1 DOSE OF BENADRYL- ITCHINESS RESOLVED. VANCOMYCIN D/C BY AND CHANGED TO DAPTO PER DR MONTEMAYOR. SANTOS Inhibitors (Verified Adverse Reaction, Mild, Cough, 04/03/18) Ceftriaxone (Verified Adverse Reaction, Mild, URTICARIA, 04/03/18) Egg (Verified Adverse Reaction, Mild, nausea, 04/03/18) can eat eggs in products and foods. does not like eggs individually Lafe (Verified Adverse Reaction, Mild, upset stomach, 04/03/18) Adhesives (Verified Adverse Reaction, Unknown, TAKES SKIN OFF - GETS RED AND SCABBY, 04/03/18) Current Inpatient Medications Current Inpatient Medications Medications (Trade) Dose Ordered Sig/Razia Route Start Time Stop Time Status Last Admin Dose Admin Acetaminophen (Tylenol Tab) 1,000 mg PREOP PO 04/03/18 06:00 04/03/18 18:00 04/03/18 06:13 1,000 MG Dexamethasone (Decadron Tab) 8 mg PREOP PO 04/03/18 06:00 04/03/18 18:00 04/03/18 06:14 8 MG Famotidine (Pepcid Tab) 20 mg PREOP PO 04/03/18 06:00 04/03/18 18:00 04/03/18 06:12 20 MG Miscellaneous (Remove Transderm-Scop Patch) 1 ea Q72H N/A 04/06/18 06:00 04/06/18 06:01 Miscellaneous Information (Check Scopolamine Patch Placement) 1 ea QS N/A 04/03/18 16:00 04/06/18 05:59 04/03/18 15:28 1 EA Tramadol HCl (Ultram Tab) 50 mg PREOP PO 04/03/18 06:00 04/03/18 18:00 04/03/18 06:13 50 MG Potassium Chloride/Dextrose/ Sod Cl 1,000 ml @ 100 mls/hr Q10H IV 04/03/18 12:00 04/04/18 11:59 04/03/18 12:23 100 MLS/HR Cefazolin Sodium 2000 mg/Syringe 15 ml @ 3.75 mls/ min Q8H IV 04/03/18 14:00 04/03/18 22:03 04/03/18 14:10 3.75 MLS/MIN Oxycodone HCl (Roxicodone Immediate Rel Tab) 1 TABLET FOR PAIN RATING... Q4H PRN PO 04/03/18 09:30 04/17/18 09:29 Morphine Sulfate (MoRPHine SULFATE INJ) 2 mg Q4 PRN IV 04/03/18 09:30 04/17/18 09:29 Acetaminophen (Tylenol Tab) 1,000 mg Q8H PO 04/03/18 14:00 05/03/18 13:59 04/03/18 14:10 1,000 MG Magnesium Hydroxide (Milk Of Magnesia Susp) 30 ml Q6H PRN PO 04/03/18 09:30 05/03/18 09:29 Bisacodyl (Dulcolax Supp) 10 mg DAILY PRN WI 04/03/18 09:30 05/03/18 09:29 Senna (Senokot Tab) 17.2 mg HS PO 04/03/18 21:00 05/03/18 20:59 Docusate Sodium (coLACE CAP) 100 mg BID PO 04/03/18 21:00 05/03/18 20:59 Diphenhydramine HCl (Benadryl Inj) 25 mg Q8H PRN IV 04/03/18 09:30 05/03/18 09:29 Al Hydrox/Mg Hydrox/Simethicone (Maalox Max Susp) 15 ml Q4H PRN PO 04/03/18 09:30 05/03/18 09:29 Multivitamins (Multivitamin Tab) 1 tab QAM PO 04/04/18 09:00 05/04/18 08:59 Ondansetron HCl (Zofran Inj) 4 mg Q6H PRN IV 04/03/18 09:30 05/03/18 09:29 Metoclopramide HCl (Reglan Inj) 10 mg Q6H PRN IV 04/03/18 09:30 05/03/18 09:29 Pantoprazole Sodium (Protonix Tab) 40 mg QAM PO 04/04/18 09:00 05/04/18 08:59 Dexamethasone Sodium Phosphate 10 mg/Syringe 2.5 ml @ 1 mls/min ONE ONCE IV 04/04/18 07:30 04/04/18 07:32 Aspirin (Ecotrin Tab) 81 mg BID PO 04/03/18 21:00 05/03/18 20:59 Albuterol (Ventolin Hfa Inhaler) 2 puffs Q4 PRN INH 04/03/18 09:30 05/03/18 09:29 Amlodipine Besylate (Norvasc Tab) 5 mg QAM PO 04/04/18 09:00 05/04/18 08:59 Fluticasone Propionate (Flovent Hfa 44MCG Inhaler) 2 puffs BID INH 04/03/18 21:00 05/03/18 20:59 Fluticasone Propionate (Flonase Nasal [place]) 2 sprays DAILY PRN CHRISTIANO 04/03/18 09:30 05/03/18 09:29 Olmesartan (Benicar Tab) 20 mg QAM PO 04/04/18 09:00 05/04/18 08:59 Pravastatin Sodium (Pravachol Tab) 40 mg QAM PO 04/04/18 09:00 05/04/18 08:59 Sertraline HCl (Zoloft Tab) 200 mg QAM PO 04/04/18 09:00 05/04/18 08:59 Meloxicam (Mobic Tab) 7.5 mg BID PO 04/03/18 21:00 05/03/18 20:59 Morphine Sulfate (MoRPHine SULFATE INJ) 4 mg Q4 PRN IV 04/03/18 10:00 8 09:59 Review of Systems Constitutional: No fever, No chills Respiratory: No shortness of breath Cardiovascular: No chest pain Abdomen: No pain, No nausea, No vomiting Genitourinary - Female: No dysuria Physical Exam Date Time Temp Pulse Resp B/P (MAP) Pulse Ox O2 Delivery O2 Flow Rate FiO2 04/03/18 15:30 Room Air 04/03/18 15:02 36.5 66 16 127/66 (86) 93 Room Air 04/03/18 13:15 36.6 70 20 160/76 (104) 98 Room Air 73 04/03/18 12:11 36.6 72 18 156/84 (108) 97 Room Air 04/03/18 11:15 36.5 69 18 154/88 (110) 98 Nasal Cannula 2.0 04/03/18 10:45 36.5 67 18 162/80 (107) 99 Nasal Cannula 2.0 04/03/18 10:15 95 Nasal Cannula 2.0 04/03/18 10:15 36.4 73 16 147/82 (103) 95 Nasal Cannula 2.0 04/03/18 10:15 Nasal Cannula 2.0 04/03/18 09:58 67 17 04/03/18 09:58 67 17 98 04/03/18 09:56 151/85 04/03/18 09:53 66 17 04/03/18 09:53 66 17 100 04/03/18 09:51 149/79 04/03/18 09:50 36.6 67 18 149/79 (90) 99 Nasal Cannula 2 04/03/18 09:48 67 17 98 04/03/18 09:48 67 17 04/03/18 09:47 67 21 99 04/03/18 09:47 67 21 04/03/18 09:46 140/75 04/03/18 09:42 70 19 100 04/03/18 09:42 69 19 04/03/18 09:41 140/77 04/03/18 09:40 69 14 99 04/03/18 09:40 69 14 04/03/18 09:36 139/80 04/03/18 09:35 74 18 100 04/03/18 09:35 74 18 04/03/18 09:31 132/85 04/03/18 09:30 73 18 97 04/03/18 09:30 74 18 04/03/18 09:30 36.4 78 16 132/85 (99) 98 Nasal Cannula 3 04/03/18 05:39 36.4 70 20 172/92 99 Room Air General Appearance: no apparent distress Head: normocephalic, atraumatic Eyes: normal inspection ENT: hearing grossly normal Respiratory/Chest: lungs clear, normal breath sounds, no respiratory distress Cardiovascular: regular rate, rhythm, no murmur, + pertinent finding ( sternotomy and bilateral mastectomy scars present) Abdomen/GI: normal bowel sounds, non tender, soft Back: normal inspection Extremities/Musculoskelatal: no calf tenderness (L ), no pedal edema, + pertinent finding (RLE (knee) dressing C/D/I with good pulses distally) Neurologic/Psych: alert, oriented x 3 Skin: normal color, warm/dry Assessment & Plan 62y/oF with hx of HLD, HTN, CAD s/p NSTEMI with CABG in 2016, breast cancer s/p bilateral mastectomy, RAD, alcohol abuse (2 beers per day; no hx of withdrawal) admitted for R knee arthroplasty post op day 0. Vitals wnl. Pain well controlled on current regimen. No other concerns at this time. R knee arthroplasty - post op day 0 - pain well controlled on tylenol, oxycodone and morphine PRN - Nausea: zofran/reglan PRN - monitor and manage pain as indicated CAD/HTN/HLD - recent ECHO 06/2016 with EF of 55-60%; diastolic dysfunction grade I; mild mitral and tricuspid regurg - Continue home regimen of Norvasc, Benicar, Aspirin, and Pravastatin RAD - Continue albuterol and flovent Alcohol abuse: no hx or concern for withdrawal at this time - continue to monitor for withdrawal symptoms Mood disorder - continue zoloft Code: Full DVT prop: aspirin and SCDs I was present with Dr. Elo Munoz during the history and exam. I discussed the case with the resident and agree with the findings and plan as documented in the note. Any exceptions or clarifications are listed here: Patient does not agree with alcoholism or alcohol abuse being in her chart. Patient reports she only drinks perhaps 2 beers a day. Her last beer was just prior to hospital stay. She is currently not presenting any signs of alcohol withdrawal. In regards, to her hypertension, her Blood pressure appears controlled and will continue her home regimen. Will continue to monitor patient overnight.
[2018-04-03] MEDS: OXYCODONE HCL IR 5 MG TAB (IMMEDIATE RELEASE) PO PRN (18:45)
[2018-04-03] MEDS ORDERED: SENNA 8.6 MG TAB PO SCH (21:00)
[2018-04-03] MEDS: FLUTICASONE PROP HFA INH 44 MCG INHALER INH SCH (22:11)
[2018-04-03] MEDS: DOCUSATE SODIUM 100 MG CAP PO SCH (22:11)
[2018-04-03] MEDS: ASPIRIN 81 MG ECTAB PO SCH (22:12)
[2018-04-03] MEDS: MELOXICAM 7.5 MG TAB PO SCH (22:24)
[2018-04-04] MEDS: CHECK SCOPOLAMINE PATCH PLACEMENT SCH ×2 (00:13→07:49)
[2018-04-04 03:07] VITALS: BP 128/74; PULSE 72; TEMP 36.6; O2SAT 95
[2018-04-04] MEDS: ACETAMINOPHEN 500 MG TAB PO SCH (05:30)
[2018-04-04] MEDS: OXYCODONE HCL IR 5 MG TAB (IMMEDIATE RELEASE) PO PRN ×2 (05:34→09:14)
[2018-04-04 05:39] LABS: HEMATOCRIT 29.5 % (37-47); MEAN CELL VOLUME 93.1 fL (80-100); MEAN CORPUSCULAR HEMOGLOBIN 31.5 pg (25-34); MEAN CORPUSCULAR HGB CONC 33.9 g/dl (32-36); MEAN PLATELET VOLUME 10.2 fL (7.4-10.4); PLATELET COUNT 170 K/uL (130-400); RED CELL DISTRIBUTION WIDTH SD 43.7 fL (36.4-46.3); WHITE BLOOD COUNT 9.44 K/uL (4.8-10.8)
[2018-04-04 06:11] LABS: CALCIUM 8.3 mg/dl (8.5-10.1); CREATININE 1.3 mg/dl (0.60-1.20); POTASSIUM 4.2 mmol/L (3.5-5.1)
[2018-04-04 07:15] VITALS: BP 130/82; PULSE 78; TEMP 36.7; O2SAT 97
[2018-04-04] MEDS ORDERED: DEXAMETHASONE INJ 10 MG in SYRINGE 0 ML IV ONE (07:30)
[2018-04-04] MEDS ORDERED: NURSING VERBAL MED ORDER ONE (07:45)
[2018-04-04] MEDS: MELOXICAM 7.5 MG TAB PO SCH (08:29)
[2018-04-04] MEDS: FLUTICASONE PROP HFA INH 44 MCG INHALER INH SCH (08:29)
[2018-04-04] MEDS: DOCUSATE SODIUM 100 MG CAP PO SCH (08:30)
[2018-04-04] MEDS: ASPIRIN 81 MG ECTAB PO SCH (08:33)
[2018-04-04] MEDS ORDERED: PANTOprazole SOD 40 MG TAB PO SCH (09:00)
[2018-04-04] MEDS ORDERED: NON-FORMULARY MEDICATION (Coenzyme Q10 (Ubidecarenone) (Co Q-10) 1 CAP) PO SCH (09:00)
[2018-04-04] MEDS ORDERED: PRAVASTATIN SOD 40 MG TAB PO SCH (09:00)
[2018-04-04] MEDS ORDERED: SERTRALINE HCL 100 MG TAB PO SCH (09:00)
[2018-04-04] MEDS ORDERED: MULTIVITAMIN TAB PO SCH (09:00)
[2018-04-04] MEDS ORDERED: OLMESARTAN MEDOXOMIL 40 MG TAB PO SCH (09:00)
[2018-04-04] MEDS ORDERED: AMLODIPINE BESYLATE 5 MG TAB PO SCH (09:00)
--- NOTE | 2018-04-04 09:46 | Anesthesiology Progress Note ---
Anesthesia Post Op Note Date & Time Apr 04, 2018 at 09:46 Vital Signs Pain Intensity: 6.0 Vital Signs Past 12 Hours Date Time Temp Pulse Resp B/P (MAP) Pulse Ox O2 Delivery O2 Flow Rate FiO2 04/04/18 07:38 Room Air 04/04/18 07:15 36.7 78 18 130/82 (98) 97 Room Air 04/04/18 03:07 36.6 72 16 128/74 (92) 95 Room Air 04/04/18 00:15 Room Air 04/03/18 23:04 36.8 72 18 146/77 (100) 94 Room Air Notes Neuraxial Anesthesia: sensory block resolved
--- NOTE | 2018-04-04 10:52 | Orthopedic Progress Note ---
Orthopedic Progress Note Date of Service Apr 04, 2018. Subjective Post OP Day: 1 Reports: feeling well, pain controlled w PO medications, Denies: complaints, chest pain, SOB, nausea / vomiting, calf pain Objective calves soft nontender, N/V intact, capillary refill less than 2 sec., dressing C /D/I, A&O x3, toes mobile Distal pulses intact. No distal edema, rere stockings intact. Silverlon intact. Date Time Temp Pulse Resp B/P (MAP) Pulse Ox O2 Delivery O2 Flow Rate FiO2 04/04/18 07:38 Room Air 04/04/18 07:15 36.7 78 18 130/82 (98) 97 Room Air 04/04/18 03:07 36.6 72 16 128/74 (92) 95 Room Air 04/04/18 00:15 Room Air 04/03/18 23:04 36.8 72 18 146/77 (100) 94 Room Air 04/03/18 19:01 36.8 81 18 130/73 (92) 95 Room Air 04/03/18 15:30 Room Air 04/03/18 15:02 36.5 66 16 127/66 (86) 93 Room Air 04/03/18 13:15 36.6 70 20 160/76 (104) 98 Room Air 73 04/03/18 12:11 36.6 72 18 156/84 (108) 97 Room Air 04/03/18 11:15 36.5 69 18 154/88 (110) 98 Nasal Cannula 2.0 04/03/18 10:45 36.5 67 18 162/80 (107) 99 Nasal Cannula 2.0 Laboratory Results 24 Hours: Test 04/04/18 05:09 Hematocrit 29.5 % Hemoglobin 10.0 g/dL Assessment & Plan Assessment: POD 1 - Right Total Knee Arthroplasty Plan: OT/PT today TTWB Right lower extremity with knee immobilizer and walker Continue Silverlon dressing Regular diet ASA for DVT prophylaxis Stable for discharge home today with home health. Follow up as scheduled at 2 weeks post operatively.
[2018-04-04 11:12] VITALS: BP 125/75; PULSE 70; TEMP 36.7; TEMP 36.9; O2SAT 91; O2SAT 97
[2018-04-04 11:34] VITALS: BP 153/81; PULSE 68; O2SAT 96
--- NOTE | 2018-04-04 11:49 | [facility] Operative Report ---
Operative Report Operative Date Apr 04, 2018. Pre-Operative Diagnosis Right Knee Arthritis Post-Operative Diagnosis Right Knee Arthritis Procedure(s) Performed Right Total Knee Arthroplasty Surgeon Dr [employer] Information Clerk Surgeon(s) Juan Manuel Escudero Estimated Blood Loss 100cc Findings Right Knee Arthritis Fluids 1500 Specimens A: Right Knee Bone and Tissue Complication(s) None Disposition Recovery Room / PACU Indications Right knee pain. Limited function and mobility. Failed conservative treament. Previous knee arthroscopy with advanced degenerative changes. Please see Dr Rose note for more detailed information. I assisted with surgery including but not limited to handling instruments to retract, etc. as well as wound closure. Description of Procedure see Dr Rose note for details I attest to the content of the Intraoperative Record and any orders documented therein. Any exceptions are noted below.
--- NOTE | 2018-04-04 13:30 | Progress Note ---
Progress Note Date of Service Apr 04, 2018. Progress Note Patient seen and evaluated. Discharge order was in. She is S/P R TKA. Pain is controlled and feeling well. Cr elevated to 1.3 but is making urine and no issues. Held Benicar this AM. Recommended patient to continue to drink plenty of fluids. May continue her Benicar tomorrow. No further hospitalist intervention is necessary.
--- NOTE | 2018-04-04 13:53 | Discharge Summary ---
Discharge Summary Date of Service Apr 04, 2018. Discharge Summary Admission Date: Apr 03, 2018 at 06:03 Discharge Date: Apr 04, 2018 Discharge Disposition: Home with services Principal Diagnosis: Right Knee Osteoarthritis Secondary Diagnoses/Problems: HLD, HTN, CAD s/p NSTEMI with CABG in 2016, breast cancer s/p bilateral mastectomy Procedures: Right Total Knee Arthroplasty Consultations: Medicine Pending Studies/Follow-Up: As scheduled with Dr Rose 2wks post-op Medication Reconciliation New Medications: Oxycodone HCl (Oxycodone HCl) 5 Mg Tab 5 MG PO q4-6, #30 Continued Medications: Albuterol Hfa (Ventolin Hfa) 200 Puffs/29780 Mcg Aers 2 PUFFS INH Q4 PRN for SOB/Wheezing, #1 INHALER Amlodipine Besylate (Amlodipine Besylate) 5 Mg Tab 5 MG PO QAM Aspirin (Aspirin 81) 81 Mg Tab 1 TAB PO QAM Fmvfijw-Tdamuiblgqeja-Eobpdonf (Excedrin Extra Strength) 1 Tab Tab 2 TAB PO QD PRN for Pain Cholecalciferol (Vitamin D3 Maximum Streng) 5,000 Unit Cap 5000 UNIT PO QAM Coenzyme Q10 (Ubidecarenone) (Co Q-10) Unknown Strength Cap 1 CAP PO QAM Fluticasone Propionate (Flovent Hfa) 120 Puffs/5280 Mcg Aero 2 PUFFS INH BID for 30 Days, #1 INHALER 2 Refills Fluticasone Propionate (Nasal) (Flonase Allergy Relief) 50 Mcg/Act Spr 2 SPRAYS CHRISTIANO DAILY PRN for ALLERGIC REACTION Lansoprazole (Prevacid) 30 Mg Capcr 30 MG PO QAM, CAP Meloxicam (Meloxicam) 15 Mg Tab 15 MG PO QD PRN for Pain STOPPED FOR PROCEDURE Olmesartan Medoxomil (Olmesartan Medoxomil) 40 Mg Tab 20 MG PO QAM Pravastatin Sodium (Pravastatin Sodium) 40 Mg Tab 40 MG PO QAM Sertraline (Zoloft) 100 Mg Tab 200 MG PO QAM Hospital Course 62 yr old female admitted from ambulatory s/p RTKR by Dr Rose. Surgery without complication. Anesthesia was a spinal. She received pre and post op antibiotics. Medicine was consulted for post-op management secondary to hx of CABG in 2016. Patient had fairly unremarkable hospital stay. Pain controlled with PO meds. Tolerated regular diet. No issues with her wound. Seen by PT/ OT. Post-op xray did note concern for proximal tibial fracture. Patient was instructed on TDWBING for 4wks with a walker. She was deemed ok to be discharged home on post-op day 1. She will be discharged with home health physical therapy. She was given appropriate medications upon discharge as well as discharge instructions. She is to keep incision covered with Silverlone dressing. She was instructed to call office with any questions or concerns. She is scheduled to follow-up with Dr Lamb office 2wks after surgery. Total time spent on discharge = This includes examination of the patient, discharge planning, medication reconciliation, and communication with other providers. Discharge Instructions Discharge Instructions Date of Service Apr 03, 2018. Admission Reason for Admission: Right Knee Arthritis Discharge Discharge Diagnosis / Problem: right knee arthritis Discharge Goals Goal(s): Decrease discomfort, Improve function, Increase independence Activity Recommendations Activity Limitations: as noted below Lifting Limitations: until after follow-up appointment Exercise/Sports Limitations: until after follow-up appointment May Resume Sexual Activity: after follow-up appointment Shower/Bathe: tomorrow, keep incision dry Driving or Machine Use: Non driving until cleared by orthropedic specialist Weightbearing Status: Right toe touch (with immobilizer and walker assistance) . Instructions / Follow-Up Instructions / Follow-Up Post-operative Instructions Dear Patient and Family/Friends, Before you are discharged from the hospital, it is important to know what to expect when you get home after surgery. To that end, we have created this sheet of discharge instructions which covers many commonly asked questions. Make sure you go through this sheet in its entirety with your nurse before you are discharged. Please note that we will go over the specifics of your surgery and recovery when you return for your first post-operative visit. Sincerely, Dr. Rose Pain Expect to be in a fair amount of pain after surgery. Remember, our goal is not to eliminate your pain, but to make it tolerable. It is a good idea to stay ahead of your pain by taking the medications you were prescribed once you get home. Typically, the pain starts improving 3-7 days after surgery. You should start weaning off the narcotic pain medication (oxycodone, hydrocodone, hydromorphone, morphine) as soon as your pain improves. Please call our office if your pain is not adequately controlled. Ice Ice your operative site at least 5 times a day for 15-30 minutes at a time. Make sure you have a thin cloth between the ice or cooling unit and your skin to prevent negrete bite. This is especially important if you received a nerve block. Continue icing your operative site for the first 5-7 days after surgery , then as needed. Diet/Nausea/Vomiting Start by drinking clear liquids and eating crackers. If you can tolerate this, then you may resume your normal diet. If you feel nauseated or vomit, take Zofran/ondansetron (if prescribed). Please call our office if you have intractable nausea or vomiting, or, if after hours, you may go to the Emergency Room for help. Constipation Constipation is a common side effect of narcotic pain medication. If you have not had a bowel movement within 2 days after surgery, we recommend purchasing an over the counter laxative such as Milk of Magnesia, Dulcolax, or Miralax from a local pharmacy, and taking it as instructed. Call our clinic if any questions. Slings and Braces If you were placed in a sling or brace, it must be worn at all times, including sleep. You may remove your sling or brace for physical therapy, home exercises , and showering. The length of time you will be in your brace and range of motion restrictions depends on what surgery you had; these details will be reviewed at your first post-operative appointment. Nerve block The anesthesia team sometimes places a nerve block to help with post-operative pain control. This results in significant numbness and inability to move the extremity. The nerve block usually wears off in 8-12 hours, but sometimes can last up to 24 hours. Please call our office if you are still unable to move your extremity after 24 hours, unless you received a pain pump to take home. Nerve blocks typically wear off quickly, so start taking pain medication as soon as you start feeling soreness near your surgical site. Weight bearing and Range of Motion. Do not bear any weight through your operative extremity immediately after surgery. If you had upper extremity surgery, do not lift anything with that arm. If you are in a knee brace, keep it locked in place until your follow-up. We will discuss your weight bearing, range of motion, and lifting restrictions in detail at your first post-operative appointment. Continuous Passive Motion (CPM) Machine If you were prescribed a CPM machine, it will start after your first post- operative appointment, at which time we will give you instructions on the range of motion settings and duration of treatment Physical therapy You will be given a prescription for physical therapy or occupational therapy at your first post-operative appointment. Typically, patients start therapy within 1 week of surgery Wound care and showering We will inspect your wound at your first post-operative visit, and may do a dressing change at that time. Most patients will be in a water-proof dressing that is removed 14 days after surgery. It is normal to see some dried blood on the dressing. Do not remove your dressing, paper strips or sutures yourself unless you are given permission. Showering is allowed the day after surgery. Do not scrub or remove any dressings. The wound should not be submerged underwater (i.e. in a bathtub or pool) until 4 weeks after surgery RITCHIE stockings If you were given white stockings, these are to be worn at all times except to shower (on both legs) for the first 2 weeks after surgery. Driving You may not drive while taking narcotic pain medication or while in a cast, splint, sling or brace. You, the patient, need to make the final determination about when you are safe to drive, however, the earliest you may consider driving after surgery is below: Hand/Wrist/Elbow Surgery: 3 days Shoulder Surgery: 2 weeks Hip,/Knee/Ankle Surgery: 4 weeks Fracture repair: 6 weeks Return to Work Your return to work depends on what surgery was done and what type of work you do. Please bring any paperwork your employer needs completed to your first post -operative visit. Also, bring a description of your job duties, as this helps us to understand what risks you may face at work. Travel Avoid long distance travel (greater than 1 hour) in airplanes and cars for the first 6 weeks after surgery. If you must travel, you need to have a Doppler ultrasound done before you travel to rule out a blood clot in your legs. Follow-up You should have a follow-up appointment already scheduled 1-2 days after surgery. If not, please contact our office to make this appointment before you leave the hospital. When to call the office It is normal to have swelling and bruising in the limb that was operated on. This will improve with time. It is also normal to have fevers for the first 2 days after surgery. Reasons you should call your doctor include: Uncontrolled pain; Nausea, vomiting, or constipation that does not improve with medication; Fevers over 101.5, chills, sweats; Drainage or bleeding from the wound; Foul odor; Spreading areas of redness; Any other concerns Current Hospital Diet Patient's current hospital diet: Regular Diet Discharge Diet Recommended Diet: Regular Diet Procedures Procedures Performed: Right Total Knee Arthroplasty Pending Studies Studies pending at discharge: no Laboratory Results Hemoglobin A1c Test 03/06/18 11:12 Range/Units Estimated Average Glucose 114 mg/dl Hemoglobin A1c 5.6 4.5-5.6 % Medical Emergencies . Who to Call and When: Medical Emergencies: If at any time you feel your situation is an emergency, please call 911 immediately. . Non-Emergent Contact Non-Emergency issues call your: Primary Care Provider Call Non-Emergent contact if: you have a fever, temperature is above 101.5, your pain is not controlled, your pain is worsening, wound has increased drainage, you have any medication questions . "Provider Documentation" section prepared by Young Wall. . Ultimate [employer]ops Trainer Recommendations Ultimate [employer] Trainer Recommendations: Increase Aspirin to 81 mg twice daily for 30 days post operatively for prevention of blood clots. Purchase Extra Strength Tylenol and take 2 tabs every 6-8 hrs for pain relief Restart your Meloxicam for pain relief. Use the prescription Oxycodone for breakthrough pain. Leave your dressing in place until your 2 wk follow up at [facility]. [place] Drug Monitoring Program Search Results: patient reviewed within database, no issues identified, see additional documentation <Electronically signed by Young Wall PA-C> <Electronically signed by Carole Watson PA-C> Signed: 04/03/18 1506 Signed: 04/04/18 0958 The status of this report is ISigned * If report status is Draft, the document has not been finalized by the responsible provider.
== END 2018-04-04 12:39 | disposition home health service (06) | DRG 470 ==
LOC: C.ACU 04:56 → C.3E 06:03 → ENRESERV 09:49
PROVIDERS: ADMIT Orthopaedic Surgery; ATTEND Orthopaedic Surgery
PROC: 0SRC0J9 Replacement of Right Knee Joint with Synthetic Substitute, Cemented, Open Approach (ICD-10-PCS; principal; 2018-04-03 07:00)
DX: M17.11 Unilateral primary osteoarthritis, right knee (principal); I10 Essential (primary) hypertension; E78.5 Hyperlipidemia, unspecified; K21.9 Gastro-esophageal reflux disease without esophagitis; F32.9 Major depressive disorder, single episode, unspecified; I25.10 Atherosclerotic heart disease of native coronary artery without angina pectoris; Z79.82 Long term (current) use of aspirin; Z79.899 Other long term (current) drug therapy; Z88.1 Allergy status to other antibiotic agents; Z88.2 Allergy status to sulfonamides; F10.10 Alcohol abuse, uncomplicated

== ENCOUNTER → 2018-04-16 | Outpatient (CLI) | payer OTHER ==
[~2018-04-16] MED LIST changes: -ACETAMINOPHEN 500 MG TAB PO SCH; -CEFAZOLIN 2000MG IV PUSH 15 ML IV SCH; -CHECK SCOPOLAMINE PATCH PLACEMENT SCH; -CeleBREX 200 MG CAP PO SCH; -DEXAMETHASONE 4 MG TAB PO SCH; -FAMOTIDINE 20 MG TAB PO SCH; -LACTATED RINGER'S 1000ML 1,000 ML IV SCH; -LACTATED RINGER'S 1000ML 500 ML IV SCH; -LACTATED RINGER'S 1000ML IV SCH; -ROPIVACAINE 5MG/ML 30 ML 150 MG, BUPIVACAINE 0.5% MPF INJ 30 ML, EpINEphrine HCL INJ 0.... INFIL SCH; +RXC5 PO; -SCOPOLAMINE 1.5 MG TDSY TD SCH; -TRAMADOL HCL 50 MG TAB PO SCH; -TRANEXAMIC ACID INJ 1,000 MG x 1 bag Topical TOP SCH; -TRANEXAMIC ACID INJ 1,000 MG x 2 Bags IV SCH
--- NOTE | 2018-04-16 11:10 | DIAGNOSTIC IMAGING REPORT ---
R KNEE 1 OR 2 VIEWS CLINICAL HISTORY: RIGHT KNEE POST OP COMPARISON: None. DISCUSSION: Total right knee arthroplasty. Good contact between prosthetic and the Bone. Mild prepatellar soft tissue edema. No significant joint effusion. There is no evidence for soft tissue swelling. IMPRESSION: Anatomic alignment post total right knee arthroplasty. The above report was generated using voice recognition software. It may contain grammatical, syntax or spelling errors. Electronically signed by: Pastor Mir M.D. 04/16/2018 11:08 AM Dictated Date/Time: 04/16/2018 11:07 AM
== END | disposition home or self-care (01) ==
LOC: C.RDSM 09:36
PROVIDERS: ATTEND Physician Assistant
DX: Z96.651 Presence of right artificial knee joint (principal)

== ENCOUNTER 2020-05-28 16:39 | Inpatient (IN) ==
[2020-05-28 17:08] LABS: Basophils # (auto) 0.03 K/uL (0-0.2); Basophils % (auto) 0.4 %; Eosinophils # (auto) 0.14 K/uL (0-0.5); Eosinophils % (auto) 1.7 %; Hematocrit (blood only) 39.5 % (37-47); Hemoglobin 13.2 g/dL (12.0-16.0); Immature Granulocytes # (auto) 0.01 K/uL (0.00-0.02); Immature Granulocytes % (auto) 0.1 %; Lymphocytes # (auto) 2.74 K/uL (1.2-3.4); Lymphocytes % (auto) 33.4 %; Mean Corpuscular Hemoglobin 31.7 pg (25-34); Mean Corpuscular Hgb Conc 33.4 g/dL (32-36); Mean Platelet Volume 10.1 fL (7.4-10.4); Monocytes # (auto) 0.59 K/uL (0.11-0.59); Monocytes % (auto) 7.2 %; Neutrophils % (auto) 57.2 %; Platelet Count 232 K/uL (130-400); RDW Coefficient of Variation 13.2 % (11.5-14.5); RDW Standard Deviation 45.8 fL (36.4-46.3); Red Blood Count 4.16 M/uL (4.2-5.4); White Blood Count 8.21 K/uL (4.8-10.8)
[2020-05-28 17:17] LABS: iSTAT Creatinine 1.2 mg/dl (0.6-1.3); iSTAT Hemoglobin 12.9 g/dl (12.0-16.0); iSTAT Ionized Calcium 1.16 mmol/l (1.12-1.32); iSTAT Potassium 3.6 mmol/L (3.3-5.0)
[2020-05-28 17:18] LABS: Partial Thromboplastin Ratio 0.8; Partial Thromboplastin Time 23.4 Seconds (21.0-31.0); Prothrombin Time 10.2 Seconds (9.0-12.0)
--- NOTE | 2020-05-28 17:18 | CT Scan Report ---
HEAD CT NONCONTRAST CT DOSE: HISTORY: Left weakness eval for cva TECHNIQUE: Multiaxial CT images of the head were performed without the use of intravenous contrast. A utomated exposure control was utilized for this study. A dose lowering technique was utilized adheri ng to the principles of ALARA. Comparison: Head CT 08/15/2015. Findings: The paranasal sinuses and mastoid air cells are clear. The calvarium and skull base are int act. There is no mass, hematoma, midline shift, acute infarct. White matter hypodensity is nonspecifi c but suggestive of microvascular ischemic change. The ventricles and sulci demonstrate mild age-rela rere involutional changes. Old punctate lacunar infarct seen within the right parietal white matter. T his remains unchanged. 1 cm hypodense focus within the white matter of the right frontal lobe on imag e 16 favors microvascular ischemic change. Impression: No acute intracranial abnormality. Atrophy and microvascular ischemic changes. ACT 112: Negative or not required by law. Electronically signed by: Zach Dietz M.D. 05/28/2020 5:16 PM
--- NOTE | 2020-05-28 17:27 | Emergency Department Note ---
History of Present Illness General Chief complaint: Stroke/CVA Symptoms Stated complaint: LEFT SIDE NUMBNESS, DROPPING Time Seen by Provider: 05/28/20 16:47 Source: patient and family Limitations: no limitations History of Present Illness Provider complaint: Headache Onset (ago): day(s) Location: head and right Radiation: non-radiation Severity: severe Pain Consistency: + now resolved Current Pain Intensity: 0 Quality: + sharp Exacerbated By: + other (Pushing on her skull) Associated symptoms: + weakness (Left arm and left leg weakness); no chest pain, no cough, no fever/chills, no nausea/vomiting and no shortness of breath Treatments prior to arrival: other (12 full dose aspirins throughout the day) This is a 64-year-old female with a history of an STEMI presenting with str okelike symptoms and headache. The patient states that she has been having a headache for the past 3 to 4 days. It is on the right side of her head. She describes it as sharp. It is worse when she pushes on her skull. It does not feel like her typical migraine headache. It is not worse with light. Her migraines are usually on the left side of her head. Today she had a worse headache and so she took 12 aspirin throughout the day. The dose was 325 mg each. She states the headache is now gone. She was walking her dog at approximately 11 AM today when she noticed she got dizzy and had some trouble walking. She was able to get to the car and her drove her home. She had lunch and then laid down on a recliner at approximately 1:30 PM. She woke up later at approximately 230 to 3 PM and states that she had difficulty making a fist with her left hand and noticed weakness to her left arm and her leg as well. She denies any difficulty with her speech. She denies any vertigo or difficulty swallowing. She denies any chest pain, shortness of breath, fever, vomiting, abdominal pain or any known exposure COVID-19. She denies any anticoagulant use. She has had no recent injury or surgery. Home Medications Home Medications Medication Instructions Recorded Confirmed Type aspirin 81 mg PO QAM 09/25/18 05/28/20 History cholecalciferol (vitamin D3) 5,000 unit PO QAM 09/25/18 05/28/20 History fluticasone propionate [Flonase 2 spray INTRANASAL DAILY PRN 09/25/18 05/28/20 History Allergy Relief] fluticasone propionate [Flovent 2 puff INHALATION BID 09/25/18 05/28/20 History HFA] albuterol sulfate 90 mcg/actuation 2 puffs INH Q4H PRN #18 gm 04/29/19 05/28/20 Rx aerosol inhaler miscellaneous medical supply #1 ea 04/29/19 05/18/20 Rx nitroglycerin 0.4 mg sublingual 0.4 mg SL UD PRN #30 tab 04/29/19 05/28/20 History tablet sumatriptan succinate 6 mg/0.5 mL 0 mg SUBCUT .USE DIRECTED. ml 04/29/19 05/28/20 History subcutaneous solution CPAP Machine #1 ea 01/12/20 05/18/20 Rx amlodipine 2.5 mg tablet 2.5 mg PO DAILY 02/04/20 05/28/20 History lansoprazole 15 mg capsule,delayed 15 mg PO DAILY 02/04/20 05/28/20 History release olmesartan 5 mg tablet 5 mg PO DAILY 02/04/20 05/28/20 History sertraline 100 mg tablet 200 mg PO DAILY tab 05/18/20 05/28/20 History Allergies Allergy/AdvReac Type Severity Reaction Status Date / Time Iodinated Contrast Media Allergy Intermediate HIVES Verified 05/28/20 19:22 Sulfa (Sulfonamide Allergy Intermediate HIVES Verified 05/28/20 19:22 Antibiotics) cefuroxime Allergy Unknown HIVES Verified 05/28/20 19:22 niacin Allergy Unknown HIVES Verified 05/28/20 19:22 pollen extracts Allergy Unknown HAY FEVER Verified 05/28/20 19:22 vancomycin AdvReac Intermediate "ITCHY AND Verified 05/28/20 19:22 RED ALL OVER" SANTOS Inhibitors AdvReac Mild Cough Verified 05/28/20 19:22 ceftriaxone AdvReac Mild URTICARIA Verified 05/28/20 19:22 egg AdvReac Mild nausea Verified 05/28/20 19:22 orange AdvReac Mild upset Verified 05/28/20 19:22 stomach adhesive AdvReac Unknown TAKES SKIN Verified 05/18/20 14:01 OFF - GETS RED AND SCABBY Past Med/Surg History Medical History Alcohol intoxication Asthma, mild persistent Chest pain Chin laceration Chronic cholecystitis Facial abrasion Fall Hx of pancreatitis HX: breast cancer NSTEMI (non-ST elevated myocardial infarction) [place] (obstructive sleep apnea) Right knee DJD Surgical History Hx of CABG Hx of cataract surgery Hx of cholecystectomy Family History Other Cancer Diabetes Heart disease Hypertension Social History Smoking Status: Former smoker Preferred Language: Slovenian marital status: Current Living Situation: Spouse Feels Safe at Home: Yes Review of Systems See HPI for pertinent positives & negatives. and A total of 10 systems reviewed and were otherwise negative Physical Exam Vital Signs Vital Signs - 24 hr 05/28/20 16:47 05/28/20 16:49 05/28/20 17:15 Temperature 36.6 C Temperature Source Oral Pulse Rate 69 66 Pulse Rate [Right Finger] Pulse Rate from SpO2 Sensor 66 Respiratory Rate 20 18 21 Respiratory Effort / Characteristics Non-Labored Spontaneous Respiratory Depth Normal Blood Pressure 148/85 H 146/85 H Blood Pressure [Right Arm] Blood Pressure Mean 109 100 Blood Pressure Mean [Right Arm] Pulse Oximetry 99 98 Oxygen Delivery Method Room Air Sepsis Recent Fever Within 48 Hours No Sepsis New/Unexplained Change in Mental Status No Sepsis Action Taken by Nursing No Action Required 05/28/20 17:47 05/28/20 18:05 05/28/20 19:10 Temperature Temperature Source Pulse Rate 63 61 64 Pulse Rate [Right Finger] Pulse Rate from SpO2 Sensor 62 61 Respiratory Rate 17 17 22 Respiratory Effort / Characteristics Respiratory Depth Blood Pressure 165/100 H 162/104 H 183/89 H Blood Pressure [Right Arm] Blood Pressure Mean 131 121 121 Blood Pressure Mean [Right Arm] Pulse Oximetry 98 99 Oxygen Delivery Method Sepsis Recent Fever Within 48 Hours Sepsis New/Unexplained Change in Mental Status Sepsis Action Taken by Nursing 05/28/20 19:13 05/28/20 19:15 05/28/20 19:16 Temperature Temperature Source Pulse Rate 60 60 Pulse Rate [Right Finger] 61 Pulse Rate from SpO2 Sensor Respiratory Rate 19 16 18 Respiratory Effort / Characteristics Respiratory Depth Blood Pressure 165/93 H Blood Pressure [Right Arm] 183/89 H Blood Pressure Mean 102 Blood Pressure Mean [Right Arm] 120 Pulse Oximetry 97 Oxygen Delivery Method Room Air Sepsis Recent Fever Within 48 Hours Sepsis New/Unexplained Change in Mental Status Sepsis Action Taken by Nursing 05/28/20 19:30 05/28/20 19:31 05/28/20 19:41 Temperature Temperature Source Pulse Rate 59 L 60 73 Pulse Rate [Right Finger] Pulse Rate from SpO2 Sensor 74 Respiratory Rate 13 20 20 Respiratory Effort / Characteristics Respiratory Depth Blood Pressure 214/113 H 195/97 H Blood Pressure [Right Arm] Blood Pressure Mean 126 139 Blood Pressure Mean [Right Arm] Pulse Oximetry 98 Oxygen Delivery Method Sepsis Recent Fever Within 48 Hours Sepsis New/Unexplained Change in Mental Status Sepsis Action Taken by Nursing 05/28/20 19:45 05/28/20 20:00 05/28/20 20:15 Temperature Temperature Source Pulse Rate 65 64 67 Pulse Rate [Right Finger] Pulse Rate from SpO2 Sensor 65 64 Respiratory Rate 21 24 16 Respiratory Effort / Characteristics Respiratory Depth Blood Pressure 181/91 H 180/98 H 161/87 H Blood Pressure [Right Arm] Blood Pressure Mean 122 111 102 Blood Pressure Mean [Right Arm] Pulse Oximetry 98 98 Oxygen Delivery Method Sepsis Recent Fever Within 48 Hours Sepsis New/Unexplained Change in Mental Status Sepsis Action Taken by Nursing 05/28/20 20:30 05/28/20 20:45 Temperature Temperature Source Pulse Rate 69 Pulse Rate [Right Finger] Pulse Rate from SpO2 Sensor Respiratory Rate 26 H 20 Respiratory Effort / Characteristics Respiratory Depth Blood Pressure 132/81 151/71 H Blood Pressure [Right Arm] Blood Pressure Mean 91 79 Blood Pressure Mean [Right Arm] Pulse Oximetry Oxygen Delivery Method Sepsis Recent Fever Within 48 Hours Sepsis New/Unexplained Change in Mental Status Sepsis Action Taken by Nursing Constitutional: Vital signs reviewed. Eyes: Pupils are equal round reactive to light. Conjunctiva are noninjected. ENT: Pharynx is clear without erythema or exudate. Mucous membranes are moist. Neck supple without meningeal signs. Respiratory: Clear to auscultation bilaterally. Breath sounds are equal bilaterally. Cardiovascular: Regular rate and rhythm. No rubs or gallops. GI: Soft, nondistended and nontender. Bowel sounds are present. Musculoskeletal: No peripheral edema. No lower extremity tenderness. Integumentary: No cyanosis. or jaundice. Neurologic: The patient is awake and alert. Cranial nerves II-XII are intact. Motor is 2 out of 5 in the left upper extremity and 3 out of 5 in the left lower extremity. Strength is normal on the right side. Sensation is intact to light touch all extremities. Normal speech. Left pronator drift. Left-sided limb ataxia both lower and upper legs. Psychiatric: Normal affect. Not anxious appearing. Course Administered Medications Discontinued Medications Gadobutrol (Gadobutrol 65ml Vial) 8.8 ml IV ONCE ONE Stop: 05/28/20 18:58 Last Admin: 05/28/20 18:57 Dose: 8.8 ml Documented by: [id number] Critical Care Time Critical Care Time: Yes Total Critical Care Time: 45 I have personally spent approximately 45 minutes of critical care time in the direct management of this patient. This includes bedside care, interpretation of diagnostic studies, and testing, discussion with consultants, patient, and family members, and other required patient management activities. These minutes are in excess of all separately billable procedures. Medical Decision Making Differential Diagnosis CVA, ICH, intracranial mass, atypical migraine, aneurysm Medical Records Attestation: I reviewed the patient's medical records. I did perform a limited focused review of portions of the patient's old chart on the electronic medical record. The patient has had no recent pertinent visits to this hospital. Home Medications Current Medication List: was personally reviewed by me Laboratory Data Attestation: I reviewed the patient's lab results. Result diagrams: 05/28/20 17:00 05/28/20 17:00 Lab Results 05/28/20 05/28/20 05/28/20 Range/Units 17:00 17:00 17:00 WBC 8.21 (4.8-10.8) K/uL RBC 4.16 L (4.2-5.4) M/uL Hgb 13.2 (12.0-16.0) g/dL POC Hgb (12.0-16.0) g/dl Hct 39.5 (37-47) % POC Hct (37-47) % MCV 95.0 (80-100) fL MCH 31.7 (25-34) pg MCHC 33.4 (32-36) g/dL RDW Std Deviation 45.8 (36.4-46.3) fL RDW Coeff of Indra 13.2 (11.5-14.5) % Plt Count 232 (130-400) K/uL MPV 10.1 (7.4-10.4) fL Immature Gran % (Auto) 0.1 % Neut % (Auto) 57.2 % Lymph % (Auto) 33.4 % Churchill % (Auto) 7.2 % Eos % (Auto) 1.7 % Baso % (Auto) 0.4 % Neut # (Auto) 4.70 (1.4-6.5) K/uL Lymph # (Auto) 2.74 (1.2-3.4) K/uL Churchill # (Auto) 0.59 (0.11-0.59) K/uL Eos # (Auto) 0.14 (0-0.5) K/uL Baso # (Auto) 0.03 (0-0.2) K/uL Immature Gran # (Auto) 0.01 (0.00-0.02) K/uL ESR (0-21) mm/hr PT 10.2 (9.0-12.0) Seconds INR 1.0 (0.9-1.1) APTT 23.4 (21.0-31.0) Seconds PTT Ratio 0.8 POC Sodium (135-144) mmol/L Sodium 143 (136-145) mmol/L POC Potassium (3.3-5.0) mmol/L Potassium 3.6 (3.5-5.1) mmol/L POC Chloride (101-112) mmol/L Chloride 113 H (98-107) mmol/L Carbon Dioxide 22 (21-32) mmol/L POC Total CO2 (24-31) mmol/L Anion Gap 7.0 (3-11) POC Anion Gap (16-25) mmol/L POC BUN (7-18) mg/dl BUN 18 (7-18) mg/dl Creatinine 1.27 H (0.6-1.2) mg/dl POC Creatinine (0.6-1.3) mg/dl Est Cr Clr Drug Dosing 49.0 ml/min Est GFR ( Amer) 51.6 Est GFR (Non-Af Amer) 44.6 BUN/Creatinine Ratio 14.3 (10-20) Glucose 97 (70-99) mg/dl POC Glucose (other) (70-99) mg/dl Calcium 9.0 (8.5-10.1) mg/dl POC Ioniz Calcium Andrés (1.12-1.32) mmol/l Magnesium 2.2 (1.8-2.4) mg/dl Total Bilirubin 0.3 (0.2-1) mg/dl AST 23 (15-37) U/L ALT 26 (12-78) U/L Alkaline Phosphatase 88 (45-117) U/L Troponin I < 0.015 (0-0.045) ng/ml Total Protein 7.0 (6.4-8.2) gm/dl Albumin 3.3 L (3.4-5.0) gm/dl Globulin 3.7 (2.5-4.0) gm/dl Albumin/Globulin Ratio 0.9 (0.9-2) Salicylates (2.8-20) mg/dl Blood Type Antibody Screen 05/28/20 05/28/20 05/28/20 Range/Units 17:00 17:00 17:05 WBC (4.8-10.8) K/uL RBC (4.2-5.4) M/uL Hgb (12.0-16.0) g/dL POC Hgb 12.9 (12.0-16.0) g/dl Hct (37-47) % POC Hct 38 (37-47) % MCV (80-100) fL MCH (25-34) pg MCHC (32-36) g/dL RDW Std Deviation (36.4-46.3) fL RDW Coeff of Indra (11.5-14.5) % Plt Count (130-400) K/uL MPV (7.4-10.4) fL Immature Gran % (Auto) % Neut % (Auto) % Lymph % (Auto) % Churchill % (Auto) % Eos % (Auto) % Baso % (Auto) % Neut # (Auto) (1.4-6.5) K/uL Lymph # (Auto) (1.2-3.4) K/uL Churchill # (Auto) (0.11-0.59) K/uL Eos # (Auto) (0-0.5) K/uL Baso # (Auto) (0-0.2) K/uL Immature Gran # (Auto) (0.00-0.02) K/uL ESR 14 (0-21) mm/hr PT (9.0-12.0) Seconds INR (0.9-1.1) APTT (21.0-31.0) Seconds PTT Ratio POC Sodium 142 (135-144) mmol/L Sodium (136-145) mmol/L POC Potassium 3.6 (3.3-5.0) mmol/L Potassium (3.5-5.1) mmol/L POC Chloride 110 (101-112) mmol/L Chloride (98-107) mmol/L Carbon Dioxide (21-32) mmol/L POC Total CO2 20 L (24-31) mmol/L Anion Gap (3-11) POC Anion Gap 16.0 (16-25) mmol/L POC BUN 18 (7-18) mg/dl BUN (7-18) mg/dl Creatinine (0.6-1.2) mg/dl POC Creatinine 1.2 (0.6-1.3) mg/dl Est Cr Clr Drug Dosing ml/min Est GFR ( Amer) Est GFR (Non-Af Amer) BUN/Creatinine Ratio (10-20) Glucose (70-99) mg/dl POC Glucose (other) 97 (70-99) mg/dl Calcium (8.5-10.1) mg/dl POC Ioniz Calcium Andrés 1.16 (1.12-1.32) mmol/l Magnesium (1.8-2.4) mg/dl Total Bilirubin (0.2-1) mg/dl AST (15-37) U/L ALT (12-78) U/L Alkaline Phosphatase (45-117) U/L Troponin I (0-0.045) ng/ml Total Protein (6.4-8.2) gm/dl Albumin (3.4-5.0) gm/dl Globulin (2.5-4.0) gm/dl Albumin/Globulin Ratio (0.9-2) Salicylates 19.1 (2.8-20) mg/dl Blood Type Antibody Screen 05/28/20 Range/Units 17:13 WBC (4.8-10.8) K/uL RBC (4.2-5.4) M/uL Hgb (12.0-16.0) g/dL POC Hgb (12.0-16.0) g/dl Hct (37-47) % POC Hct (37-47) % MCV (80-100) fL MCH (25-34) pg MCHC (32-36) g/dL RDW Std Deviation (36.4-46.3) fL RDW Coeff of Indra (11.5-14.5) % Plt Count (130-400) K/uL MPV (7.4-10.4) fL Immature Gran % (Auto) % Neut % (Auto) % Lymph % (Auto) % Churchill % (Auto) % Eos % (Auto) % Baso % (Auto) % Neut # (Auto) (1.4-6.5) K/uL Lymph # (Auto) (1.2-3.4) K/uL Churchill # (Auto) (0.11-0.59) K/uL Eos # (Auto) (0-0.5) K/uL Baso # (Auto) (0-0.2) K/uL Immature Gran # (Auto) (0.00-0.02) K/uL ESR (0-21) mm/hr PT (9.0-12.0) Seconds INR (0.9-1.1) APTT (21.0-31.0) Seconds PTT Ratio POC Sodium (135-144) mmol/L Sodium (136-145) mmol/L POC Potassium (3.3-5.0) mmol/L Potassium (3.5-5.1) mmol/L POC Chloride (101-112) mmol/L Chloride (98-107) mmol/L Carbon Dioxide (21-32) mmol/L POC Total CO2 (24-31) mmol/L Anion Gap (3-11) POC Anion Gap (16-25) mmol/L POC BUN (7-18) mg/dl BUN (7-18) mg/dl Creatinine (0.6-1.2) mg/dl POC Creatinine (0.6-1.3) mg/dl Est Cr Clr Drug Dosing ml/min Est GFR ( Amer) Est GFR (Non-Af Amer) BUN/Creatinine Ratio (10-20) Glucose (70-99) mg/dl POC Glucose (other) (70-99) mg/dl Calcium (8.5-10.1) mg/dl POC Ioniz Calcium Andrés (1.12-1.32) mmol/l Magnesium (1.8-2.4) mg/dl Total Bilirubin (0.2-1) mg/dl AST (15-37) U/L ALT (12-78) U/L Alkaline Phosphatase (45-117) U/L Troponin I (0-0.045) ng/ml Total Protein (6.4-8.2) gm/dl Albumin (3.4-5.0) gm/dl Globulin (2.5-4.0) gm/dl Albumin/Globulin Ratio (0.9-2) Salicylates (2.8-20) mg/dl Blood Type A Positive Antibody Screen NEGATIVE Imaging Data Radiologist's Impression: HEAD CT NONCONTRAST CT DOSE: HISTORY: Left weakness eval for cva TECHNIQUE: Multiaxial CT images of the head were performed without the use of intravenous contrast. Automated exposure control was utilized for this study. A dose lowering technique was utilized adhering to the principles of ALARA. Comparison: Head CT 08/15/2015. Findings: The paranasal sinuses and mastoid air cells are clear. The calvarium and skull base are intact. There is no mass, hematoma, midline shift, acute infarct. White matter hypodensity is nonspecific but suggestive of microvascular ischemic change. The ventricles and sulci demonstrate mild age-related involutional changes. Old punctate lacunar infarct seen within the right parietal white matter. This remains unchanged. 1 cm hypodense focus within the white matter of the right frontal lobe on image 16 favors microvascular ischemic change. Impression: No acute intracranial abnormality. Atrophy and microvascular ischemic changes. ACT 112: Negative or not required by law. Electronically signed by: Zach Dietz M.D. 05/28/2020 5:16 PM Dictated: 05/28/20 1711 Transcribed: 05/28/20 171 Brain MRI WITH AND WITHOUT CONTRAST HISTORY: Left-sided weakness. TECHNIQUE: Multiplanar multisequence MRI of the brain was performed both before and after the intravenous administration of contrast. COMPARISON STUDY: Head CT 05/28/2020. FINDINGS: A few small scattered foci of restricted diffusion seen within the right posterior frontal lobe, right parietal lobe, and right occipital lobe consistent with acute infarcts. These are likely embolic. Mild mucosal thickening within the ethmoid air cells. The mastoid air cells are clear. The major vascular flow voids at the skull base are well-maintained. There is no mass, hematoma, midline shift. The ventricles and sulci demonstrate mild age- related involutional changes. Small focal areas of edema associated with the right-sided acute infarcts. Postcontrast sequences show no areas of abnormal enhancement. IMPRESSION: A few small scattered foci of restricted diffusion seen within the right posterior frontal lobe, right parietal lobe, and right occipital lobe consistent with acute infarcts. These are likely embolic. ACT 112: Negative or not required by law. Electronically signed by: Zach Dietz M.D. 05/28/2020 7:10 PM Dictated: 05/28/201904 Transcribed: 05/28/201904 Brain MRA HISTORY: Left-sided weakness. Assess for stroke. TECHNIQUE: 3-D [id number] MRA of the brain was performed without contrast. COMPARISON STUDY: None. FINDINGS: Visualized intracranial internal carotid arteries, distal vertebral arteries, and basilar artery are widely patent. There is no significant stenosis, occlusion, or aneurysm seen within the bilateral ACAs, MCAs, or electrical technology instructor. Hypoplastic distal right vertebral artery and basilar artery. Bilateral electrical technology instructor are fed through the posterior communicating arteries consistent with normal variants. There is also a severely hypoplastic right A1 segment. This is also l ikely developmental as the left KELLY is dominant. IMPRESSION: No significant stenosis, occlusion, or aneurysm within the [place]. ACT 112: Negative or not required by law. Electronically signed by: Zach Dietz M.D. 05/28/2020 6:42 PM Dictated: 05/28/201838 Transcribed: 05/28/201838 NECK MRA HISTORY: Left-sided weakness. Stroke. TECHNIQUE: MRA of the neck were performed following the use of intravenous contrast according to standard department protocol. All measurements were calculated based on NASCET criteria. COMPARISON STUDY: None. FINDINGS: The aortic arch and proximal great vessels are widely patent. Significant motion artifact results in difficult evaluation of the carotid and vertebral arteries. The bilateral common carotid and left internal carotid arteries appear widely patent. There appears to be a focal high-grade stenosis within the proximal right internal carotid artery likely due to calcified plaque. Hypoplastic right vertebral artery comparison to the left. The vertebral arteries appear patent. IMPRESSION: Suboptimal study due to motion artifact. However, there appears to be focal high-grade stenosis within the proximal right internal carotid artery. This should be confirmed with follow-up carotid Doppler study. ACT 112: Negative or not required by law. Electronically signed by: Zach Dietz M.D. 05/28/2020 7:44 PM Dictated: 05/28/201940 Transcribed: 05/28/201940 ECG Data Attestation: I personally reviewed and interpreted this ECG as follows: Indication: + other (Stroke symptoms) Rate (beats per minute): 71 Rhythm: + normal sinus ECG ST segments: + ST depression (Anterolateral) and + T-wave inversions (Anterolateral) ECG Findings: no Q waves and no PVCs Comparison ECG Date: from (November 08, 2017) Change: no significant change Blood Pressure Blood Pressure Findings: Elevated blood pressure Blood Pressure Disposition: further management by hospitalist HAN Narrative I did evaluate the patient as noted above. The patient is presenting with strokelike symptoms. She has a NIH stroke scale of 6. She is likely not a IV TPA candidate given that it appears her last well-known time was at 11 AM. I did, however, call a stroke alert. I did discuss the case with Dr. Coyne of [facility] stroke neurology. IV access was established. I did place an order for continuous cardiac monitoring. The monitor showed normal sinus rhythm with a rate of 70. I did order and personally review the patient's 12-lead EKG as described above. She has some abnormal EKG findings but her states that she normally has an abnormal EKG. The EKG is not changed since November 2017 as noted above. She is not having any chest pain or shortness of breath. I did order and review the patient's blood work as noted in the electronic medical record. CBC is unremarkable. Her electrolytes are unremarkable. Creatinine is slightly elevated at 1.27. Salicylate level is 19.1. I did order a stat CT of the head. I did review the images myself as well as the radiology report as described above. There is no bleed or acute infarct on CT. She could not have CT angiograms due to her dye allergy. The patient was evaluated by the stroke neurologist. After discussion with the patient and her he agreed that IV TPA was not currently indicated. He did recommend MRI and MRA of the head and neck. I did order an MRI and MRA of the head and neck. MRI demonstrated embolic strokes on the right side. MRI demonstrated a focal high-grade stenosis within the proximal right internal carotid artery. I did again discuss the case with the [facility] stroke neurologist. He recommended patient be placed on Plavix but hold off until tomorrow given that she took 12 doses of full dose aspirin today. I did discuss the test results with the patient and her . I did discuss case with the wrapper caser who informed the hospitalist. Impression & Plan Acute cerebrovascular accident, Carotid stenosis, right Discharge Plan Visit Data Chief Complaint: Stroke/CVA Symptoms Stated Complaint: LEFT SIDE NUMBNESS, DROPPING ED Provider: Dandre Calvillo Discharge Problem: Acute cerebrovascular accident, Carotid stenosis, right Patient Disposition: Admitted As Inpatient Discharge Instructions Interventions: ED Discharge Assessment Last Done: 05/28/20 21:44
[2020-05-28 17:30] LABS: Alanine Aminotransferase 26 U/L (12-78); Albumin Level 3.3 gm/dl (3.4-5.0); Aspartate Aminotransferase 23 U/L (15-37); BUN Creatinine Ratio 14.3 (10-20); Blood Urea Nitrogen 18 mg/dl (7-18); Carbon Dioxide 22 mmol/L (21-32); Chloride 113 mmol/L (98-107); Est GFR (African American) 51.6; Est GFR (Non-African American) 44.6; Glucose 97 mg/dl (70-99); Magnesium 2.2 mg/dl (1.8-2.4); Potassium 3.6 mmol/L (3.5-5.1); Sodium 143 mmol/L (136-145)
[2020-05-28 17:35] LABS: Albumin Globulin Ratio 0.9 (0.9-2); Alkaline Phosphatase 88 U/L (45-117); Bilirubin,Total 0.3 mg/dl (0.2-1); Globulin 3.7 gm/dl (2.5-4.0); Troponin I < 0.015 ng/ml (0-0.045)
--- NOTE | 2020-05-28 18:43 | Magnetic Resonance Report ---
Brain MRA HISTORY: Left-sided weakness. Assess for stroke. TECHNIQUE: 3-D [id number] MRA of the brain was performed without contrast. COMPARISON STUDY: None. FINDINGS: Visualized intracranial internal carotid arteries, distal vertebral arteries, and basilar a rtery are widely patent. There is no significant stenosis, occlusion, or aneurysm seen within the mae ateral ACAs, MCAs, or site promotion agent. Hypoplastic distal right vertebral artery and basilar artery. Bilateral P Glenda are fed through the posterior communicating arteries consistent with normal variants. There is al so a severely hypoplastic right A1 segment. This is also likely developmental as the left KELLY is candace nant. IMPRESSION: No significant stenosis, occlusion, or aneurysm within the [place]. ACT 112: Negative or not required by law. Electronically signed by: Zach Dietz M.D. 05/28/2020 6:42 PM
[2020-05-28] MEDS ORDERED: GADOBUTROL 65ML VIAL IV ONE (18:57)
--- NOTE | 2020-05-28 19:11 | Magnetic Resonance Report ---
Brain MRI WITH AND WITHOUT CONTRAST HISTORY: Left-sided weakness. TECHNIQUE: Multiplanar multisequence MRI of the brain was performed both before and after the intrave nous administration of contrast. COMPARISON STUDY: Head CT 05/28/2020. FINDINGS: A few small scattered foci of restricted diffusion seen within the right posterior frontal lobe, right parietal lobe, and right occipital lobe consistent with acute infarcts. These are likely embolic. Mild mucosal thickening within the ethmoid air cells. The mastoid air cells are clear. The m ajor vascular flow voids at the skull base are well-maintained. There is no mass, hematoma, midline s hift. The ventricles and sulci demonstrate mild age-related involutional changes. Small focal areas o f edema associated with the right-sided acute infarcts. Postcontrast sequences show no areas of abnor mal enhancement. IMPRESSION: A few small scattered foci of restricted diffusion seen within the right posterior frontal lobe, righ t parietal lobe, and right occipital lobe consistent with acute infarcts. These are likely embolic. ACT 112: Negative or not required by law. Electronically signed by: Zach Dietz M.D. 05/28/2020 7:10 PM
--- NOTE | 2020-05-28 19:46 | Magnetic Resonance Report ---
NECK MRA HISTORY: Left-sided weakness. Stroke. TECHNIQUE: MRA of the neck were performed following the use of intravenous contrast according to [facility] protocol. All measurements were calculated based on NASCET criteria. COMPARISON STUDY: None. FINDINGS: The aortic arch and proximal great vessels are widely patent. Significant motion artifact results in difficult evaluation of the carotid and vertebral arteries. The bilateral common carotid a nd left internal carotid arteries appear widely patent. There appears to be a focal high-grade stenos is within the proximal right internal carotid artery likely due to calcified plaque. Hypoplastic righ t vertebral artery comparison to the left. The vertebral arteries appear patent. IMPRESSION: Suboptimal study due to motion artifact. However, there appears to be focal high-grade stenosis withi n the proximal right internal carotid artery. This should be confirmed with follow-up carotid Doppler study. ACT 112: Negative or not required by law. Electronically signed by: Zach Dietz M.D. 05/28/2020 7:44 PM
[2020-05-28] MEDS ORDERED: PHARMACIST DISCHARGE MED REC CONSULT PRN (20:55)
--- NOTE | 2020-05-28 21:11 | History & Physical Report ---
Date of Service May 28, 2020 Assessment & Plan (1) Stroke due to embolism: Ms. Zavaleta is a 64yo woman with a PMHx significant for DE with Hx of CABG, HTN, HLD not on a statin, [place], asthma, migraines and depression who was admitted with right sided embolic strokes causing weakness on her left side. Embolic stroke -pt presented with left arm and leg weakness after a nap at 2pm and a 5 day headache history. -MRI Brain showed acute infarcts in the R posterior frontal lobe, R parietal lobe, R occipital lobe -MRA neck showed focal high grade stenosis in the proximal R ICA. -Pt denies any changes to vision, slurred speech, or dysphagia. No facial droop noted. -outside tPA window but pt apparently took twelve 325mg aspirin pills at home -consult neurology, speech therapy, PT/OT, CM for discharge planning -NPO until dysphagia screen and for possible vascular surgery procedure. Consult placed. -no anticoagulation started given aspirin Hx above -consider re-starting a statin, pt notes "she's tried them all" and cannot tolerate the side-effects -bilateral carotid dopplers pending -Echo with bubble study pending (though carotid plaque likely culprit for emboli will rule out PFO). Pt has no known Hx of a fib. -hgbA1c and lipid panel pending -admit to PCU/tele for continued monitoring, neuro checks -consider GI protection and monitor for signs of GI bleed given aspirin Hx above HTN -given stroke, will allow for permissive HTN -hold home amlodipine 2.5mg daily, and olmesartan 5mg daily HLD -not currently on medication as pt states she accepts the risk because she absolutely cannot tolerate the side-effects -consider re-starting a statin -needs high potency but if not tolerable (?pravastatin at least, with CoQ10?) Asthma/Allergies -continue home albuterol inhaler PRN, Flovent and Flonase -pt with some scattered wheezing during exam, consider nebulized breathing treatments if worsening ORVILLE -uses CPAP at home -ordered nightly here Depression -continue home Sertraline once she passes dysphagia screen -of note, pt unsure whether dose 100mg or 200mg. Hx of DE, s/p CABG -continue home prn nitroglycerin SL tab GERD -continue formulary alternative to home PPI-pantoprazole 40mg BID Migraines -hold home SQ sumatriptan Alcohol use -Pt states that she drinks 2 beers a day and that she has loved her beer for many years. -Denies dependence saying it is not a need a for her -while hospitalized, monitor for signs of withdrawal FEN/GI: NPO for potential vascular surgery procedure DVT prophylaxis: SCDs given aspirin Hx CODE STATUS: Full Dispo: PCU/tele History of Present Illness Primary Care Provider: Cliff Vaughn MD Ms. Zavaleta is a 64yo woman with a PMHx significant for DE with Hx of CABG, HTN, HLD not on a statin, [place], asthma, migraines and depression who was admitted with right sided embolic strokes causing weakness on her left side. She states that she has been having a headache for the last 5 days. She has a hx of migraines so didnt think anything of it, and she has also been stressed by an alcoholic daughter. However, today she decided to go for a walk and felt dizzy afterwards so she took a nap. After waking up from her nap she notcied that her left arm was weak and she physically needed to use her other arm to move it. She denies any slurred speech, changes to vision, noted facial droop, or dysphagia at that time. She also states that upon deciding to go to the ED, she physically had to lift her left leg to put it in the car. She states that she does not want to be on a statin as though she understands the risks, the side effects are too much for her. PMHx: as above PSH: [facility]pass surgery [facility] [address] [facility], Cholecystectomy in 2017, knee replacement in 2017, cataract surgery in 2017 Fam Hx: Mother: diabetic, Hx of DE. Father: Leukemia Social Hx: States she is a beer drinker and drinks 2 beers a day. Tells me however, that it is not a "need" but does love her beer. Quit smoking 40 years ago after smoking for 2 years. No recreational drug use. Lives at home with her in a 2 rosh[address] home. Allergies Allergy/AdvReac Type Severity Reaction Status Date / Time Iodinated Contrast Media Allergy Intermediate HIVES Verified 05/28/20 19:22 Sulfa (Sulfonamide Allergy Intermediate HIVES Verified 05/28/20 19:22 Antibiotics) cefuroxime Allergy Unknown HIVES Verified 05/28/20 19:22 niacin Allergy Unknown HIVES Verified 05/28/20 19:22 pollen extracts Allergy Unknown HAY FEVER Verified 05/28/20 19:22 vancomycin AdvReac Intermediate "ITCHY AND Verified 05/28/20 19:22 RED ALL OVER" SANTOS Inhibitors AdvReac Mild Cough Verified 05/28/20 19:22 ceftriaxone AdvReac Mild URTICARIA Verified 05/28/20 19:22 egg AdvReac Mild nausea Verified 05/28/20 19:22 orange AdvReac Mild upset Verified 05/28/20 19:22 stomach adhesive AdvReac Unknown TAKES SKIN Verified 05/18/20 14:01 OFF - GETS RED AND SCABBY Home Medications Home Medications Medication Instructions Recorded Confirmed Type aspirin 81 mg PO QAM 09/25/18 05/28/20 History cholecalciferol (vitamin D3) 5,000 unit PO QAM 09/25/18 05/28/20 History fluticasone propionate [Flonase 2 spray INTRANASAL DAILY PRN 09/25/18 05/28/20 History Allergy Relief] fluticasone propionate [Flovent 2 puff INHALATION BID 09/25/18 05/28/20 History HFA] albuterol sulfate 90 mcg/actuation 2 puffs INH Q4H PRN #18 gm 04/29/19 05/28/20 Rx aerosol inhaler miscellaneous medical supply #1 ea 04/29/19 05/18/20 Rx nitroglycerin 0.4 mg sublingual 0.4 mg SL UD PRN #30 tab 04/29/19 05/28/20 History tablet sumatriptan succinate 6 mg/0.5 mL 0 mg SUBCUT .USE DIRECTED. ml 04/29/19 History subcutaneous solution CPAP Machine #1 ea 01/12/20 05/18/20 Rx amlodipine 2.5 mg tablet 2.5 mg PO DAILY 02/04/20 05/28/20 History lansoprazole 15 mg capsule,delayed 15 mg PO DAILY 02/04/20 05/28/20 History release olmesartan 5 mg tablet 5 mg PO DAILY 02/04/20 05/28/20 History sertraline 100 mg tablet 200 mg PO DAILY tab 05/18/20 05/28/20 History Past Med/Surg History Medical History Alcohol intoxication Asthma, mild persistent Chest pain Chin laceration Chronic cholecystitis Facial abrasion Fall Hx of pancreatitis HX: breast cancer NSTEMI (non-ST elevated myocardial infarction) ORVILLE (obstructive sleep apnea) Right knee DJD Surgical History Hx of CABG Hx of cataract surgery Hx of cholecystectomy Family History Other Cancer Diabetes Heart disease Hypertension Social History Smoking Status: Former smoker Second Hand Exposure: No; Do You Dip or Chew Tobacco: No; Hx Alcohol Use: Yes Alcohol type: beer Hx Substance Use: No Preferred Language: German Communication Ability: Effective Delivery Mgr Required: No Beliefs That Will Affect Care: None marital status: Current Living Situation: Spouse Other Information That Helps Us Care for You: No Feels Safe at Home: Yes Safety Concerns: Feels Safe At This Time Review of Systems Constitutional: + insomnia; no fever, no chills and no sweats Eyes: no spots in vision and no worsening vision Ear, Nose, Mouth, Throat: no nasal congestion, no nasal discharge, no sore throat and no dysphagia Respiratory: no cough and no dyspnea Cardiovascular: + edema; no chest pain, no dyspnea on exertion, no palpitations and no calf pain Gastrointestinal: no abdominal pain, no nausea and no vomiting Genitourinary: no dysuria and no hematuria Musculoskeletal: no back pain Integumentary: no rash Neurologic: + localized weakness and + headache(s); no falls, no loss of sensation, no tingling, no numbness, no abnormal speech and no confusion Psychiatric: no confusion Physical Exam Physical Exam: General: Alert, oriented. No acute distress aying in bed Skin: No noted rashes or bruises Psych: Appropriate mood and affect Neuro: CNII_XII grossly intact, no noted facial droop, no dysarthia. pt with d ecreased strength in left arm and left leg. HEENT: NC/AT Chest: Nontender to palpation. CV: RRR, Normal s1, s2. No murmurs appreciated Resp: Breath sounds clear with scattered wheezes bilaterally, no increased effort of breathing. Abdomen:Protuberant, Soft, nontender. No guarding. Extremities: Trace edema in lower extremities bilaterally. Results & Data Results & Data ([facility]) Vital Signs (Past 12 Hours) Vital Signs Temp Pulse Pulse Resp BP BP Pulse Ox 05/28/20 20:45 69 20 151/71 H 05/28/20 20:30 26 H 132/81 05/28/20 20:15 67 16 161/87 H 05/28/20 20:00 64 24 180/98 H 98 05/28/20 19:45 65 21 181/91 H 98 05/28/20 19:41 73 20 195/97 H 98 05/28/20 19:31 60 20 214/113 H 05/28/20 19:30 59 L 13 05/28/20 19:16 60 18 165/93 H 05/28/20 19:15 60 16 05/28/20 19:13 61 19 183/89 H 97 05/28/20 19:10 64 22 183/89 H 05/28/20 18:05 61 17 162/104 H 99 05/28/20 17:47 63 17 165/100 H 98 05/28/20 17:15 66 21 146/85 H 98 05/28/20 16:49 36.6 C 18 99 05/28/20 16:47 69 20 148/85 H Code Status & VTE Plan VTE Prophylaxis Plan VTE Prophylaxis will be ordered: Yes Supervising Physician Co-Signing Physician Notes Attending addendum: I have physically seen this patient, have supervised the medical residents activities, and agree with the H&P unless as otherwise noted. Assessment and Plan: Acute infarcts involving posterior frontal, parietal and occipital lobes- Findings of MRI of brain. The patient will be admitted to telemetry for serial cardiac enzymes, serial EKG's, cardiac rhythm monitoring and a 2-D echocardiogram with Dopplers. MRI brain is negative. MRA neck shows high-grade stenosis of proximal right ICA. MRA examination was motion degraded, so we will order carotid Dopplers for comparison. Consult neurology Consult vascular surgery Stroke without TPA protocol order set Permissive hypertension Status post CABG/history of DE/hypertension- Permissive hypertension as noted above. Present medications on hold. Remaining orders and notations as noted Resident Activity Tracking Resident Involvement: Resident Care Provided Care Provided: [facility] Medicine
[2020-05-28] MEDS ORDERED: NITROGLYCERIN SL 0.4 MG/TAB TAB SL PRN (22:33)
[2020-05-28] MEDS ORDERED: FLUTICASONE PROPIONATE NA SPR 16 GM BTL PRN (22:33)
[2020-05-28] MEDS ORDERED: ALBUTEROL HFA 8 GM INHALER INH PRN (22:36)
--- NOTE | 2020-05-28 22:47 | Ultrasound Report ---
BILATERAL CAROTID DOPPLER STUDY HISTORY: Abnormal neck MRA. stroke with L sided weakness COMPARISON: Neck MRA 05/28/2020. TECHNIQUE: Real-time, grayscale, and color Doppler sonography of the carotid arteries was performed. Imaging reviewed in the transverse and longitudinal planes. All measurements were calculated based on NASCET criteria. FINDINGS: Antegrade flow is seen in the bilateral vertebral arteries. The brachial pressures were not obtained. Extensive soft plaque seen within the right carotid bulb. The peak systolic velocity within the right ICA is 536 cm/s proximally at the carotid bulb. The right systolic ratio is 20.2. The peak systolic velocity within the left ICA is 98 cm/s. The left systolic ratio is 1.2. IMPRESSION: 1. High-grade/critical stenosis seen within the proximal right internal carotid artery at the carotid bulb due to the noncalcified atherosclerotic plaque. This confirms the neck MRA findings. 2. No significant stenosis within the left carotid arteries. ACT 112: Negative or not required by law. Electronically signed by: Zach Dietz M.D. 05/28/2020 10:45 PM
[2020-05-28] MEDS ORDERED: ONDANSETRON INJ 2 MG/ML 2 ML VIAL IV PRN (23:52)
[2020-05-29] MEDS: ACETAMINOPHEN 1000 MG/100 ML IV IV PRN ×2 (00:10→09:08)
--- NOTE | 2020-05-29 06:45 | Hospitalist Progress Note ---
Date of Service May 29, 2020 Assessment & Plan (1) Stroke due to embolism: Ms. Zavaleta is a 64yo woman with a PMHx significant for DE with Hx of CABG, HTN, HLD who was not on a statin, [place], asthma, migraines and depression who was admitted with right sided embolic strokes causing weakness on her left side. Embolic stroke -Patient with 5 day history headache and LUE and LLE weakness on admission -MRI Brain showed acute infarcts in the R posterior frontal lobe, R parietal lobe, R occipital lobe -MRA neck showed focal high grade stenosis in the proximal R ICA. -Carotid doppler with high-grade stenosis in proximal R internal carotid -Was outside tPA window but pt apparently took twelve 325mg aspirin pills at home, stating it "helped her headache" -Salicylate level 19.1, no alkalinization of urine initiated. -Neurology consulted -ASA 81mg and Plavix 75mg QD x21 days then Plavix 75mg QD -Vascular Surgery consulted -Due to patients high grade stenosis planning for early R carotid endarterectomy this coming week -Will hold anticoagulation prior to surgery -Echo without PFO, EF 60-65% -A1c 5.6 -Chol 270, LDL 204, HDL 42 -Patient with history of negative side effects to statin in the past (pravastatin) -Discussed with patient today about the benefits of starting statin therapy, patient agreeable at this time -Start Atorvastatin 40mg QD HTN -given stroke, will allow for permissive HTN -Continue to hold home amlodipine 2.5mg daily, and olmesartan 5mg daily HLD -Discussed statin vs Ezetimibe + Fish oil, patient OK for statin -Atorvastatin 40mg QD Asthma/Allergies -continue home albuterol inhaler PRN, Flovent and Flonase ORVILLE -uses CPAP at home -ordered nightly here Depression -Continue home Sertraline 200mg QD Hx of DE, s/p CABG -continue home prn nitroglycerin SL tab GERD -continue formulary alternative to home PPI-pantoprazole 40mg BID Migraines -hold home SQ sumatriptan -Due to patients current stroke, sumatriptan contraindicated -Tylenol PRN Alcohol use -Pt states that she drinks 2 beers a day and that she has loved her beer for many years. -Denies dependence saying it is not a need a for her -while hospitalized, monitor for signs of withdrawal FEN/GI: HH diet DVT prophylaxis: Lovenox Code: Full Dispo: PCU/tele Admission and Anticipated Discharge Date Admission Date: May 28, 2020 Supervising Physician Co-Signing Physician Notes I personally examined the patient and verified all man points of history and exam, discussed case, and agree with decision making with Dr Mg feeling ok leg weaknesss better arm about the same vitals noted nad heent nc at mmm breathing unlabored no accessory muscles good effort CVA from carotid embolic mechanism due to marked severe hyperlipidemia -stable, secondary risk reduction -extensive discussion on risks/benefits - after further discussion she's willing to try statin again - she was expressing a concern that if it caused her problems then she would be stuck taking it and not able to quit -anticipate endarterectomy otherwise as above Subjective Patient seen at the bedside this AM. Patient noted that she was still feeling weakness primarily in her LUE, but that her LLE had regained a significant amount of strength. She also noted a headache 2/10 this morning which had improved after administration of Tylenol. Denied any facial droop, slurred speech, or changes in memory. No other complaints at this time. Review of Systems Constitutional: no fever and no chills Eyes: no worsening vision Respiratory: no cough, no dyspnea and no pain on inspiration Cardiovascular: no chest pain, no dyspnea on exertion and no palpitations Gastrointestinal: no abdominal pain, no nausea and no vomiting Neurologic: + localized weakness (LUE and LLE) and + headache(s); no dizziness Physical Exam Constitutional: well developed and well nourished; no acute distress Eyes: PERRL, conjunctivae normal, anicteric sclerae ENMT: external ear and nose normal, oropharynx normal Respiratory: normal respiratory effort, lungs clear to auscultation Cardiovascular: RRR, no murmur, no edema Gastrointestinal (Abdomen): normal bowel sounds, soft, nontender, no hepatosplenomegaly Musculoskeletal: Weakness noted primarily in the LUE and LLE LUE: Strength 4/5, minimal clinical dental technician strength, sensation intact. LLE: Strength 5-/5, slightly reduced relative to RLE, sensation intact. Neurologic: PERRL, EOMI, accommodation nl, no face palsy, no dysarthria CN's II-XI intact bilaterally and awake Results & Data Results & Data ([facility]) Vital Signs (Past 12 Hours) Vital Signs Temp Pulse Pulse Resp BP BP Pulse Ox 05/29/20 03:43 36.3 C L 61 18 137/81 96 05/28/20 23:55 64 05/28/20 23:24 36.4 C L 56 L 18 169/76 H 98 05/28/20 22:33 36.7 C 65 20 178/83 H 96 05/28/20 20:45 69 20 151/71 H 05/28/20 20:30 26 H 132/81 05/28/20 20:15 67 16 161/87 H 05/28/20 20:00 64 24 180/98 H 98 05/28/20 19:45 65 21 181/91 H 98 05/28/20 19:41 73 20 195/97 H 98 05/28/20 19:31 60 20 214/113 H 05/28/20 19:30 59 L 13 05/28/20 19:16 60 18 165/93 H 05/28/20 19:15 60 16 05/28/20 19:13 61 19 183/89 H 97 05/28/20 19:10 64 22 183/89 H Resident Activity Tracking Resident Involvement: Resident Care Provided Care Provided: Adult Hospital Medicine
[2020-05-29 07:11] LABS: Estimated Average Glucose 114 mg/dl; Hemoglobin A1C 5.6 % (4.5-5.6)
[2020-05-29 07:32] LABS: Basophils # (auto) 0.04 K/uL (0-0.2); Basophils % (auto) 0.8 %; Eosinophils # (auto) 0.18 K/uL (0-0.5); Eosinophils % (auto) 3.6 %; Hematocrit (blood only) 39.2 % (37-47); Lymphocytes # (auto) 1.67 K/uL (1.2-3.4); Mean Corpuscular Hemoglobin 31.5 pg (25-34); Mean Corpuscular Hgb Conc 33.2 g/dL (32-36); Mean Corpuscular Volume 94.9 fL (80-100); Mean Platelet Volume 9.8 fL (7.4-10.4); Monocytes # (auto) 0.43 K/uL (0.11-0.59); Monocytes % (auto) 8.5 %; Neutrophils # (auto) 2.74 K/uL (1.4-6.5); Neutrophils % (auto) 54.1 %; Platelet Count 189 K/uL (130-400); RDW Coefficient of Variation 13.2 % (11.5-14.5); RDW Standard Deviation 46.1 fL (36.4-46.3); Red Blood Count 4.13 M/uL (4.2-5.4); White Blood Count 5.06 K/uL (4.8-10.8)
[2020-05-29 08:03] LABS: BUN Creatinine Ratio 13.8 (10-20); Calcium 8.7 mg/dl (8.5-10.1); Creatinine Clr Calc Pharmacy 59.6 ml/min; Est GFR (African American) 69.8; Est GFR (Non-African American) 60.2
[2020-05-29] MEDS ORDERED: OLMESARTAN MEDOXOMIL 5 MG TAB PO SCH (09:00)
[2020-05-29] MEDS ORDERED: AMLODIPINE BESYLATE 5 MG TAB PO SCH (09:00)
--- NOTE | 2020-05-29 09:48 | Consultation ---
Date of Consultation May 29, 2020 Assessment & Plan (1) Carotid stenosis, right: Patient has a pre occlusive stenosis of her right internal carotid artery. She has improvement of her left lower extremity but still has left upper extremity weakness but she claims it has improved slightly. At this point would recommend early right carotid endarterectomy this coming week. Will have her cleared by her manager risk management prior to surgery. Thank you very much for letting us participate in the care of this patient. History of Present Illness Reason for Consultation: Pre occlusive right internal carotid artery stenosis with CVA Attending Physician: Casey Walker DO History of Present Illness Ms. Zavaleta is a 64yo woman with a PMHx significant for NM with Hx of CABG, HTN, HLD not on a statin, [place], asthma, migraines and depression. She developed left arm and leg weakness yesterday. This occurred after walking her dog. She did say she had a headache for the previous 5 days which got worse yesterday before the stroke. She does have a history of migraines. She denies any slurred speech, changes to vision, noted facial droop, or dysphagia at that time. She claims that her left leg has improved and has residual left arm weakness at this time. She denies any irregular heart beats or chest discomfort. Allergies Allergy/AdvReac Type Severity Reaction Status Date / Time Iodinated Contrast Media Allergy Intermediate HIVES Verified 05/28/20 19:22 Sulfa (Sulfonamide Allergy Intermediate HIVES Verified 05/28/20 19:22 Antibiotics) cefuroxime Allergy Unknown HIVES Verified 05/28/20 19:22 niacin Allergy Unknown HIVES Verified 05/28/20 19:22 pollen extracts Allergy Unknown HAY FEVER Verified 05/28/20 19:22 vancomycin AdvReac Intermediate "ITCHY AND Verified 05/28/20 19:22 RED ALL OVER" SANTOS Inhibitors AdvReac Mild Cough Verified 05/28/20 19:22 ceftriaxone AdvReac Mild URTICARIA Verified 05/28/20 19:22 egg AdvReac Mild nausea Verified 05/28/20 19:22 orange AdvReac Mild upset Verified 05/28/20 19:22 stomach adhesive AdvReac Unknown TAKES SKIN Verified 05/18/20 14:01 OFF - GETS RED AND SCABBY Home Medications Home Medications Medication Instructions Recorded Confirmed Type aspirin 81 mg PO QAM 09/25/18 05/28/20 History cholecalciferol (vitamin D3) 5,000 unit PO QAM 09/25/18 05/28/20 History fluticasone propionate [Flonase 2 spray INTRANASAL DAILY PRN 09/25/18 05/28/20 History Allergy Relief] fluticasone propionate [Flovent 2 puff INHALATION BID 09/25/18 05/28/20 History HFA] albuterol sulfate 90 mcg/actuation 2 puffs INH Q4H PRN #18 gm 04/29/19 05/28/20 Rx aerosol inhaler miscellaneous medical supply #1 ea 04/29/19 05/18/20 Rx nitroglycerin 0.4 mg sublingual 0.4 mg SL UD PRN #30 tab 04/29/19 05/28/20 History tablet sumatriptan succinate 6 mg/0.5 mL 0 mg SUBCUT .USE DIRECTED. ml 04/29/19 05/28/20 History subcutaneous solution CPAP Machine #1 ea 01/12/20 05/18/20 Rx amlodipine 2.5 mg tablet 2.5 mg PO DAILY 02/04/20 05/28/20 History lansoprazole 15 mg capsule,delayed 15 mg PO DAILY 02/04/20 05/28/20 History release olmesartan 5 mg tablet 5 mg PO DAILY 02/04/20 05/28/20 History sertraline 100 mg tablet 200 mg PO DAILY tab 05/18/20 05/28/20 History Patient History Medical History Alcohol intoxication Asthma, mild persistent Chest pain Chin laceration Chronic cholecystitis Facial abrasion Fall Hx of pancreatitis HX: breast cancer NSTEMI (non-ST elevated myocardial infarction) ORVILLE (obstructive sleep apnea) Right knee DJD Surgical History Hx of CABG Hx of cataract surgery Hx of cholecystectomy Family History Other Cancer Diabetes Heart disease Hypertension Social History Smoking Status: Former smoker Second Hand Exposure: No; Do You Dip or Chew Tobacco: No; Hx Alcohol Use: Yes Alcohol type: beer Hx Substance Use: No Preferred Language: Micronesian Communication Ability: Effective Order Make Up Clerk Required: No Beliefs That Will Affect Care: None marital status: Current Living Situation: Spouse Other Information That Helps Us Care for You: No Feels Safe at Home: Yes Safety Concerns: Feels Safe At This Time Review of Systems Review of Systems: All systems reviewed & are unremarkable except as noted in HPI & below Physical Exam Neck: trachea midline Respiratory: normal respiratory effort; no respiratory distress Auscultation: lungs clear to auscultation bilaterally Cardiovascular: Rate/Rhythm: regular rate and regular rhythm Vessels: femoral pulses present and radial pulses present; no carotid bruit Extremities: normal capillary refill; no edema Gastrointestinal (Abdomen): Inspection/Auscultation: abdomen normal to inspection Percussion/Palpation: abdomen soft; abdomen nontender Musculoskeletal: Extremities: extremities normal to inspection and + abnormal strength (left upper extremity weakness) Neurologic: normal touch/pain/proprioception and CN's II-XI intact bilaterally Motor/Sensory: + abnormal movement (weak left upper extremity) Psychiatric: Orientation: alert and oriented x 3 Results & Data ([facility]) Vital Signs (Past 12 Hours) Vital Signs Temp Pulse Pulse Resp BP Pulse Ox 05/29/20 08:26 36.5 C 61 20 172/98 H 97 05/29/20 03:43 36.3 C L 61 18 137/81 96 05/28/20 23:55 64 05/28/20 23:24 36.4 C L 56 L 18 169/76 H 98 05/28/20 22:33 36.7 C 65 20 178/83 H 96
--- NOTE | 2020-05-29 10:04 | Neurology Consultation ---
Date of Consultation May 29, 2020 Assessment & Plan (1) Carotid stenosis, right: (2) Stroke due to embolism: Amirah Zavaleta is a 64 yo woman w/ PMH of HTN, [place] on CPAP, migraines, asthma, h/o NSTEMI, GERD , alcohol use and h/o chronic cholecystitis who p/t [facility] after acute onset of LUE/LLE weakness a/w a headache for 3-4 days. Symptom localization: R MCA watershed territories Stroke mechanism: vessel to vessel embolus vs flow failure Stroke WorkUp: - CT head: no hemorrhage, punctate chronic infarcts in the right MCA distribution. - MRI brain: punctate acute to subacute strokes in the right occipital lobe, as well as several other punctate to small infarcts in the right MCA/KELLY/SOCIAL INSURANCE ANALYST watershed distribution, minimal SVID, no tumors or midline malformation noted - MRA head/neck: ongenitally absent R KELLY, dominant left vertebral artery with minimal to absent flow in the right vertebral artery (hypoplastic vs atretic) with narrow caliber basilar artery, bilateral licensed architect, and focal high grade stenosis of the proximal R ICA - TTE: pending - Telemetry: pending - A1c: 5.6 - FLP: 204 - Troponin, TSH: negative, pending Stroke Management: - Acute treatment: ASA - Continuous cardiac monitoring - Vitals, Neurochecks, NIHSS per unit routine - BP parameters: SBP CAP 220, hold home anti-hypertensives for permissive HTN, IV Labetalol/Hydralazine PRN - After 11:30am on 05/29, ok to convert to SBP CAP 180, would not actively try to lower her blood pressure unless above this cap pending CEA - Complete ischemic stroke workup with TTE without bubble, TSH - Consult speech, PT, OT for supportive management - Will grief counsellor concerning stroke education, smoking cessation, healthy diet, physical activity, weight loss - Follow up with PCP for assistance with outpatient goals (BP <130/80, LDL <70, A1c <7) - Follow up in neurology clinic in 6-8 weeks (can be with LISA Benitez) Secondary Stroke Prevention: - Antiplatelet: ASA 81mg po daily/plavix 75mg daily x21 days, then transition to plavix 75mg daily - Anticoagulation: Not indicated at this time - Statin: Atorvastatin 80mg daily HTN: - BP parameters, as above - Restart home medications with goal of lowering BP cautiously to normotension over next 3-4 days (do not want to drop it too low as this could precipitate flow failure and recurrent stroke) FEN/GI: - Diet: Cardiac HH diet and PO meds given absence of bulbar signs or symptoms - Monitor lytes and replete PRN Glucose Control: - Sliding scale insulin and accuchecks per primary team to avoid hyperglycemia # H/o migraines: given her h/o NSTEMI and now stroke, triptans are contraindicated. She would benefit from considering tylenol, aspirin or one of the newer acute treatments such as ubrevly/nurtec/reyvow Thank you for this interesting consult. Plan of care was discussed with primary team. Please call with any questions. (3) ORVILLE (obstructive sleep apnea): History of Present Illness Attending Physician: Casey Walker DO History of Present Illness Amirah Zavaleta is a 64 yo woman w/ PMH of HTN, [place] on CPAP, migraines, asthma, h/o NSTEMI, GERD , alcohol use and h/o chronic cholecystitis who p/t [facility] after acute onset of LUE/LLE weakness a/w a headache for 3-4 days. 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 In the ED, she was afebrile, BP 148/85, heart rate 69, respiratory rate 20, satting 99% on room air. Labs notable for WBC 8.1, hemoglobin 13.2, platelets 232, electrolytes within normal except for mildly elevated chloride 113, creatinine 1.27, glucose 97, INR 1.0, calcium/magnesium within normal, LFTs within normal, troponin negative. Imaging independently reviewed. CT head shows no hemorrhage, punctate chronic infarcts in the right MCA distribution. MRI brain shows punctate acute to subacute strokes in the right occipital lobe, as well as several other punctate to small infarcts in the right MCA/KELLY/SOCIAL INSURANCE ANALYST watershed distribution, minimal SVID, no tumors or midline malformation noted. MRA H&N shows congenitally absent R KELLY, dominant left vertebral artery with minimal to absent flow in the right vertebral artery (hypoplastic vs atretic) with narrow caliber basilar artery, bilateral licensed architect, and focal high grade stenosis of the proximal R ICA. Carotid dopplers show high grade/critical stenosis at the proximal R ICA. She is already been seen by vascular surgery with plan to have right CEA early this upcoming week. On examination, she reports that she was in her normal state of health until yesterday when she went with her on a walk. Noticed a severe headache, came home and rested, noticed LUE weakness when she woke up. Has been taking aspirin 325mg q4h for several days due to the headaches. No recent imitrex usage. Allergies Allergy/AdvReac Type Severity Reaction Status Date / Time Iodinated Contrast Media Allergy Intermediate HIVES Verified 05/28/20 19:22 Sulfa (Sulfonamide Allergy Intermediate HIVES Verified 05/28/20 19:22 Antibiotics) cefuroxime Allergy Unknown HIVES Verified 05/28/20 19:22 niacin Allergy Unknown HIVES Verified 05/28/20 19:22 pollen extracts Allergy Unknown HAY FEVER Verified 05/28/20 19:22 vancomycin AdvReac Intermediate "ITCHY AND Verified 05/28/20 19:22 RED ALL OVER" SANTOS Inhibitors AdvReac Mild Cough Verified 05/28/20 19:22 ceftriaxone AdvReac Mild URTICARIA Verified 05/28/20 19:22 egg AdvReac Mild nausea Verified 05/28/20 19:22 orange AdvReac Mild upset Verified 05/28/20 19:22 stomach adhesive AdvReac Unknown TAKES SKIN Verified 05/18/20 14:01 OFF - GETS RED AND SCABBY Home Medications Home Medications Medication Instructions Recorded Confirmed Type aspirin 81 mg PO QAM 09/25/18 05/28/20 History cholecalciferol (vitamin D3) 5,000 unit PO QAM 09/25/18 05/28/20 History fluticasone propionate [Flonase 2 spray INTRANASAL DAILY PRN 09/25/18 05/28/20 History Allergy Relief] fluticasone propionate [Flovent 2 puff INHALATION BID 09/25/18 05/28/20 History HFA] albuterol sulfate 90 mcg/actuation 2 puffs INH Q4H PRN #18 gm 04/29/19 05/28/20 Rx aerosol inhaler miscellaneous medical supply #1 ea 04/29/19 05/18/20 Rx nitroglycerin 0.4 mg sublingual 0.4 mg SL UD PRN #30 tab 04/29/19 05/28/20 History tablet sumatriptan succinate 6 mg/0.5 mL 0 mg SUBCUT .USE DIRECTED. ml 04/29/19 05/28/20 History subcutaneous solution CPAP Machine #1 ea 01/12/20 05/18/20 Rx amlodipine 2.5 mg tablet 2.5 mg PO DAILY 02/04/20 05/28/20 History lansoprazole 15 mg capsule,delayed 15 mg PO DAILY 02/04/20 05/28/20 History release olmesartan 5 mg tablet 5 mg PO DAILY 02/04/20 05/28/20 History sertraline 100 mg tablet 200 mg PO DAILY tab 05/18/20 05/28/20 History Patient History Medical History Alcohol intoxication Asthma, mild persistent Chest pain Chin laceration Chronic cholecystitis Facial abrasion Fall Hx of pancreatitis HX: breast cancer NSTEMI (non-ST elevated myocardial infarction) [place] (obstructive sleep apnea) Right knee DJD Surgical History Hx of CABG Hx of cataract surgery Hx of cholecystectomy Family History Other Cancer Diabetes Heart disease Hypertension Social History Smoking Status: Former smoker Second Hand Exposure: No; Do You Dip or Chew Tobacco: No; Hx Alcohol Use: Yes Alcohol type: beer Hx Substance Use: No Preferred Language: Uruguayan Communication Ability: Effective Project Systems Engineer Required: No Beliefs That Will Affect Care: None marital status: Current Living Situation: Spouse Other Information That Helps Us Care for You: No Feels Safe at Home: Yes Safety Concerns: Feels Safe At This Time Review of Systems Review of Systems: 14 point review of systems completed and negative except as in HPI. Exam (Neuro) Physical Exam: General Exam: GEN: NAD, sitting down in examination bed. HEENT: No conjunctival injection, no rhinorrhea CV: RRR on monitor, no significant edema. PULM: Nonlabored respirations on room air. Neuro Exam: MS: Awake and Alert. Oriented to person, place, and date. Speech fluent and appropriate without dysarthria or paraphasic errors. Language intact including naming, comprehension, repetition. Cognition and memory grossly intact. Attention intact. No neglect. CN: Visual dodd full, + blink to threat bilaterally. No extinction to double simultaneous stimuli. Normal fundoscopic exam. PERRLA OU. EOMI without nystagmus. Facial sensation intact to LT. Facial muscles full and symmetric. Hearing intact to finger rub bilaterally. Uvula midline with symmetric palatal elevation. Shoulder shrug normal on right. Tongue midline. MOTOR: Normal bulk and tone. + pronator drift. RUE strength 5/5 at deltoids, biceps, triceps, and hand grasp. LUE strength 2/5 at deltoids, 3/5 biceps, 3/5 triceps, and 2/5 hand grasp. BLE strength 5-/5 at iliopsoas, hamstrings, quadriceps, tibialis anterior, and gastrocnemius bilaterally. REFLEXES: 1+ at biceps, triceps, brachioradialis, absent patella, and absent Ach illes bilaterally. Flexor plantar responses bilaterally. SENSORY: Intact to LT/vibration throughout, no extinction to double simultaneous stimuli. COORDINATION: No dysmetria or ataxia on [id number] in RUE (unable to complete in LUE). Normal Evelin in right hand. GAIT: Deferred due to physical status. NIH STROKE SCALE 1A. Level of Consciousness (0-3) = 0 1B. LOC Questions (0-2) = 0 1C. LOC Commands (0-2) = 0 2. Best Horizontal Gaze (0-2) = 0 3. Visual Dodd (0-3) = 0 4. Facial Palsy (0-3) = 0 5. Motor Arm Right (0-4) = 0 Left (0-4) = 1 6. Motor Leg Right (0-4) = 0 Left (0-4) = 0 7. Limb Ataxia (0-2) = 0 8. Sensory (0-2) = 0 9. Best Language (0-3) = 0 10. Dysarthria (0-2) = 0 11. Extinction and Inattention (0-2) = 0 NIHSS TOTAL = 1 Results & Data ([facility]) Vital Signs (Past 12 Hours) Vital Signs Temp Pulse Pulse Resp BP Pulse Ox 05/29/20 08:26 36.5 C 61 20 172/98 H 97 05/29/20 03:43 36.3 C L 61 18 137/81 96 05/28/20 23:55 64 05/28/20 23:24 36.4 C L 56 L 18 169/76 H 98 05/28/20 22:33 36.7 C 65 20 178/83 H 96 PG Care Time/CCT Total # of Minutes Spent Total Time Spent with Patient: Total time spent is greater than 50% in coordination of care (as documented) at patient's floor/unit and/or counseling patient: Coding Level of Care Code 16778 Inpt Consult Level 5 Diagnoses Carotid stenosis, right I65.21 Stroke due to embolism I63.9 ORVILLE (obstructive sleep apnea) G47.33
[2020-05-29] MEDS: FLUTICASONE FUROATE 200MCG 14 PUFFS/INHALER INH SCH (11:01)
[2020-05-29] MEDS: PANTOprazole 40 MG TAB PO SCH (11:01)
[2020-05-29] MEDS: SERTRALINE HCL 100 MG TABLET PO SCH (11:01)
--- NOTE | 2020-05-29 16:34 | XCELERA ---
[id number]
--- NOTE | 2020-05-29 16:46 | Electrocardiogram Report ---
Test Reason : Blood Pressure : / mmHG Vent. Rate : 071 BPM Atrial Rate : 071 BPM P-R Int : 152 ms QRS Dur : 082 ms QT Int : 364 ms P-R-T Axes : 050 035 113 degrees QTc Int : 395 ms Normal sinus rhythm Possible Left atrial enlargement Nonspecific ST abnormality Abnormal ECG When compared with ECG of 08-NOV-2017 19:12, T wave inversion more evident in Lateral leads Confirmed by Alexander Albert ([id number]) on 05/29/2020 4:46:30 PM Referred By: REFERRED SELF Confirmed By:Porfirio Albert
[2020-05-29] MEDS: ATORVASTATIN 40 MG TAB PO SCH (16:53)
[2020-05-29] MEDS: ENOXAPARIN INJ 40 MG/0.4 ML SYR SQ SCH (16:53)
--- NOTE | 2020-05-29 17:42 | Billing Data ---
Date of Service May 29, 2020 Coding Level of Care Code 56277 Initial Inpt Care Lvl 3
--- NOTE | 2020-05-29 18:48 | Billing Data ---
Date of Service May 29, 2020 Coding Level of Care Code 35756 Subseq Hosp Care Lvl 3
[2020-05-29] MEDS ORDERED: OMEGA-3 (PURIFIED FISH OIL) 1 GM CAP PO SCH (21:00)
[2020-05-30] MEDS: ENOXAPARIN INJ 40 MG/0.4 ML SYR SQ SCH ×2 (06:34→18:30)
[2020-05-30 07:16] LABS: Basophils # (auto) 0.02 K/uL (0-0.2); Basophils % (auto) 0.4 %; Eosinophils % (auto) 3.8 %; Hematocrit (blood only) 38.4 % (37-47); Hemoglobin 12.9 g/dL (12.0-16.0); Immature Granulocytes # (auto) 0.01 K/uL (0.00-0.02); Immature Granulocytes % (auto) 0.2 %; Lymphocytes # (auto) 1.76 K/uL (1.2-3.4); Lymphocytes % (auto) 33.5 %; Mean Corpuscular Hemoglobin 31.9 pg (25-34); Mean Corpuscular Hgb Conc 33.6 g/dL (32-36); Monocytes # (auto) 0.31 K/uL (0.11-0.59); Monocytes % (auto) 5.9 %; Neutrophils # (auto) 2.95 K/uL (1.4-6.5); Neutrophils % (auto) 56.2 %; Platelet Count 190 K/uL (130-400); RDW Coefficient of Variation 13.1 % (11.5-14.5); RDW Standard Deviation 45.8 fL (36.4-46.3); Red Blood Count 4.04 M/uL (4.2-5.4); White Blood Count 5.25 K/uL (4.8-10.8)
[2020-05-30 07:44] LABS: BUN Creatinine Ratio 14.7 (10-20); Calcium 9.1 mg/dl (8.5-10.1); Creatinine Clr Calc Pharmacy 50.1 ml/min; Est GFR (African American) 56.4; Est GFR (Non-African American) 48.7; Potassium 4.2 mmol/L (3.5-5.1)
--- NOTE | 2020-05-30 08:24 | Hospitalist Progress Note ---
Date of Service May 30, 2020 Assessment & Plan (1) Stroke due to embolism: Ms. Zavaleta is a 64yo woman with a PMHx significant for GA with Hx of CABG, HTN, HLD who was not on a statin, ORVILLE, asthma, migraines and depression who was admitted with right sided embolic strokes causing weakness on her left side. Embolic stroke -Patient with 5 day history headache and LUE and LLE weakness on admission -MRI Brain showed acute infarcts in the R posterior frontal lobe, R parietal lobe, R occipital lobe -MRA neck showed focal high grade stenosis in the proximal R ICA. -Carotid doppler with high-grade stenosis in proximal R internal carotid -Was outside tPA window but pt apparently took twelve 325mg aspirin pills at home, stating it "helped her headache" -Salicylate level 19.1, no alkalinization of urine initiated. -Neurology consulted -ASA 81mg and Plavix 75mg QD x21 days then Plavix 75mg QD -Vascular Surgery consulted -Due to patients high grade stenosis planning for early R carotid endarterectomy this coming week -Echo without PFO, EF 60-65% -A1c 5.6 -Chol 270, LDL 204, HDL 42 -Patient with history of negative side effects to statin in the past (pravastatin) -DC Atorvastatin 40mg QD, patient noted she was unable to tolerate it and that it caused her to "be in a fog." -Start Zetia and Fish oil for some cholesterol benefit. HTN -given stroke, will allow for permissive HTN -Continue to hold home amlodipine 2.5mg daily, and olmesartan 5mg daily HLD -Discussed statin vs Ezetimibe + Fish oil -Patient did not tolerate statin, dc'd -Start Ezetimibe and fish oil. Asthma/Allergies -continue home albuterol inhaler PRN, Flovent and Flonase ORVILLE -uses CPAP at home -ordered nightly here Depression -Continue home Sertraline 200mg QD Hx of GA, s/p CABG -continue home prn nitroglycerin SL tab GERD -continue formulary alternative to home PPI-pantoprazole 40mg BID Migraines -hold home SQ sumatriptan -Due to patients current stroke, sumatriptan contraindicated -Tylenol PRN Alcohol use -Pt states that she drinks 2 beers a day and that she has loved her beer for many years. -Denies dependence saying it is not a need a for her -while hospitalized, monitor for signs of withdrawal FEN/GI: HH diet DVT prophylaxis: Lovenox Code: Full Dispo: Downgrade to Med/Surg Admission and Anticipated Discharge Date Admission Date: May 28, 2020 Supervising Physician Co-Signing Physician Notes I personally examined the patient and verified all man points of history and exam, discussed case, and agree with decision making with Dr Mg arm maybe moving alittle more. felt mental fog that she associated with prior trial of a statin already. is willing to try zetia and fish oil vitals noted nad heent nc at mmm breathing unlabored no accessory muscles good effort CVA from carotid embolic mechanism due to marked severe hyperlipidemia -stable, secondary risk reduction -gave trial of statin again - immediately felt what she recalled as ADRs. will stop and use zetia / fish oil (explained that benefit a little more nebulous but should improve numbers which by [place] would correlate to decreased risk, and that also side effects highly unlikely) -anticipate endarterectomy otherwise as above Subjective Patient evaluated at the bedside. Noting this morning that she was feeling more tired than usual although she slept overnight. Upon discussion again later in the evening she believed that this was secondary to the statin and she wished to discontinue it. Patient otherwise noting that she had a 3.5/10 headache this AM. [place] that the strength in her LUE had improved somewhat above the elbow, but hand was still weak. No other concerns at this time. Review of Systems Constitutional: no fever and no chills Respiratory: no cough and no dyspnea Cardiovascular: no chest pain, no dyspnea on exertion and no palpitations Gastrointestinal: no abdominal pain, no nausea and no vomiting Neurologic: + localized weakness (LUE and LLE) and + headache(s); no dizziness Physical Exam Constitutional: well developed and well nourished; no acute distress Eyes: PERRL, conjunctivae normal, anicteric sclerae ENMT: external ear and nose normal, oropharynx normal Respiratory: normal respiratory effort, lungs clear to auscultation Cardiovascular: RRR, no murmur, no edema Gastrointestinal (Abdomen): normal bowel sounds, soft, nontender, no hepatosplenomegaly Musculoskeletal: Weakness noted primarily in the LUE and LLE LUE: Strength 4/5, minimal steffen house supervisor strength, sensation intact. LLE: Strength 5-/5, slightly reduced relative to RLE, sensation intact. Neurologic: PERRL, EOMI, accommodation nl, no face palsy, no dysarthria CN's II-XI intact bilaterally and awake Results & Data Results & [facility] ([facility]) Vital Signs (Past 12 Hours) Vital Signs Temp Pulse Resp BP Pulse Ox 05/30/20 07:38 36.4 C L 58 L 22 185/96 H 96 05/30/20 04:27 36.5 C 63 18 144/90 H 95 05/29/20 23:56 36.7 C 68 20 159/89 H 93 Resident Activity Tracking Resident Involvement: Resident Care Provided Care Provided: Adult Hospital Medicine
[2020-05-30] MEDS ORDERED: EZETIMIBE 10 MG TABLET PO SCH (09:00)
[2020-05-30] MEDS: FLUTICASONE FUROATE 200MCG 14 PUFFS/INHALER INH SCH (09:00)
[2020-05-30] MEDS: SERTRALINE HCL 100 MG TABLET PO SCH (09:01)
[2020-05-30] MEDS: ASPIRIN 81 MG ECTAB PO SCH (09:01)
[2020-05-30] MEDS: CLOPIDOGREL BISULFATE 75 MG TAB PO SCH (09:01)
[2020-05-30] MEDS: ATORVASTATIN 40 MG TAB PO SCH (09:01)
[2020-05-30] MEDS: PANTOprazole 40 MG TAB PO SCH (09:02)
[2020-05-30] MEDS: ACETAMINOPHEN 1000 MG/100 ML IV IV PRN (09:02)
[2020-05-30] MEDS ORDERED: bisacodyL 10 MG SUPP PR PRN (09:10)
--- NOTE | 2020-05-30 09:13 | Surgery Progress Note ---
Date of Service May 30, 2020 Assessment & Plan (1) Carotid stenosis, right: Patient has a pre occlusive stenosis of her right internal carotid artery. She has improvement of her left lower extremity but still has left upper extremity weakness but she claims it has improved slightly. At this point would recommend early right carotid endarterectomy this coming week. Will have her cleared by her supervisor product inspection prior to surgery. Thank you very much for letting us participate in the care of this patient. Admission and Anticipated Discharge Date Admission Date: May 28, 2020 Subjective Patient seen at the bedside this AM. Patient noted that she was still feeling weakness primarily in her LUE, but that her LLE had regained a significant amount of strength. She also noted a headache 2/10 this morning which had improved after administration of Tylenol. Denied any facial droop, slurred speech, or changes in memory. No other complaints at this time. Results & Data ([facility]) Vital Signs (Past 12 Hours) Vital Signs Temp Pulse Resp BP Pulse Ox 05/30/20 07:38 36.4 C L 58 L 22 185/96 H 96 05/30/20 04:27 36.5 C 63 18 144/90 H 95 05/29/20 23:56 36.7 C 68 20 159/89 H 93
[2020-05-30] MEDS ORDERED: POLYETHYLENE (MIRALAX) 17 GM PACK PO SCH (09:15)
--- NOTE | 2020-05-30 10:44 | Cardiology Consultation ---
Date of Consultation May 30, 2020 Assessment & Plan (1) Preoperative cardiovascular examination: Based on the patient's history and proposed operation she does have an elevated risk of cardiovascular complications (2-4%) based on the revised cardiac risk index. She does not appear to be high risk as she does not have a recent history of acute coronary syndrome, decompensated heart failure, severe valvular heart disease, cardiac conduction abnormalities or known arrhythmias. She does report symptoms of chest pain at times. 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 She did undergo revascularization within the last 5 years. She seems to have a reasonable activity tolerance estimated at greater than 4 Mets. Based on these factors, I do not believe she requires any additional risk stratification given the necessity of this procedure. Additionally, our ability to attenuate her cardiovascular risk with additional revascularization should it be uncovered is likely limited. At this point I would simply focus on optimizing her cardiovascular status for the surgery. She should continue on dual anti-platelet therapy. He should avoid significant blood loss, anemia, hypotension or hypertension. She should maintain good oxygenation and avoid significant periods of tachycardia. I do not believe there is any role For initiating beta blockade at this stage. History of Present Illness Reason for Consultation: Preoperative cardiovascular evaluation Requesting Physician: Annel Attending Physician: Casey Walker DO History of Present Illness The patient is a 64-year-old woman with a history of coronary artery disease having previously undergone surgical revascularization. A few days ago the patient noticed some difficulty with ambulation. Later in the day after awaken ing from a nap she had difficulty moving the left arm. Additional symptoms include some difficulty using the left leg. 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 She is scheduled for a right carotid endarterectomy later this week. The patient's cardiac history began in 2016. It seems she presented to the hospital with symptoms of chest and arm discomfort. He was discovered to have mildly elevated cardiac biomarkers and underwent coronary angiography which demonstrated disease in the LAD and circumflex. PCI was attempted but aborted due to symptoms which developed during the procedure and an inability to cross the lesion due to acute angulation. The patient was subsequently transferred to [facility] in [place] where she reportedly underwent a five- vessel coronary artery bypass. The patient states that her surgery and recovery were uneventful. She admits to being very sedentary individual. She generally avoids significant activity due to asthma and orthopedic disease involving the knees. However, recently she has been going on extended walks with her dogs. Two occasions over the past week she was able to ambulate over a mi without limiting symptoms. She did not have exertional symptoms of chest discomfort or limiting dyspnea. She generally avoids housework, but can ambulate up and down her stairs a few times daily without symptoms. She does report occasional chest pains. These appear to be distinct from the symptoms she experienced prior to her bypass. They tend to occur almost exclusively with emotional stress. Commonly she will take a nitroglycerin for relief. The last time she took nitroglycerin was approximately 3 weeks ago by report. She cannot recall symptoms at that time or any event which may have precipitated these symptoms. She does have occasional dyspnea that she attributes to longstanding history of asthma. No orthopnea or paroxysmal nocturnal dyspnea. No significant dizziness lightheadedness. No sense of palpitation. Allergies Allergy/AdvReac Type Severity Reaction Status Date / Time Iodinated Contrast Media Allergy Intermediate HIVES Verified 05/28/20 19:22 Sulfa (Sulfonamide Allergy Intermediate HIVES Verified 05/28/20 19:22 Antibiotics) cefuroxime Allergy Unknown HIVES Verified 05/28/20 19:22 niacin Allergy Unknown HIVES Verified 05/28/20 19:22 pollen extracts Allergy Unknown HAY FEVER Verified 05/28/20 19:22 vancomycin AdvReac Intermediate "ITCHY AND Verified 05/28/20 19:22 RED ALL OVER" SANTOS Inhibitors AdvReac Mild Cough Verified 05/28/20 19:22 ceftriaxone AdvReac Mild URTICARIA Verified 05/28/20 19:22 egg AdvReac Mild nausea Verified 05/28/20 19:22 orange AdvReac Mild upset Verified 05/28/20 19:22 stomach adhesive AdvReac Unknown TAKES SKIN Verified 05/18/20 14:01 OFF - GETS RED AND SCABBY Home Medications Home Medications Medication Instructions Recorded Confirmed Type aspirin 81 mg PO QAM 09/25/18 05/28/20 History cholecalciferol (vitamin D3) 5,000 unit PO QAM 09/25/18 05/28/20 History fluticasone propionate [Flonase 2 spray INTRANASAL DAILY PRN 09/25/18 05/28/20 History Allergy Relief] fluticasone propionate [Flovent 2 puff INHALATION BID 09/25/18 05/28/20 History HFA] albuterol sulfate 90 mcg/actuation 2 puffs INH Q4H PRN #18 gm 04/29/19 05/28/20 Rx aerosol inhaler miscellaneous medical supply #1 ea 04/29/19 05/18/20 Rx nitroglycerin 0.4 mg sublingual 0.4 mg SL UD PRN #30 tab 04/29/19 05/28/20 History tablet sumatriptan succinate 6 mg/0.5 mL 0 mg SUBCUT .USE DIRECTED. ml 04/29/19 05/28/20 History subcutaneous solution CPAP Machine #1 ea 01/12/20 05/18/20 Rx amlodipine 2.5 mg tablet 2.5 mg PO DAILY 02/04/20 05/28/20 History lansoprazole 15 mg capsule,delayed 15 mg PO DAILY 02/04/20 05/28/20 History release olmesartan 5 mg tablet 5 mg PO DAILY 02/04/20 05/28/20 History sertraline 100 mg tablet 200 mg PO DAILY tab 05/18/20 05/28/20 History Patient History Medical History Alcohol intoxication Asthma, mild persistent Chest pain Chin laceration Chronic cholecystitis Facial abrasion Fall Hx of pancreatitis HX: breast cancer NSTEMI (non-ST elevated myocardial infarction) ORVILLE (obstructive sleep apnea) Right knee DJD Surgical History Hx of CABG Hx of cataract surgery Hx of cholecystectomy Family History Other Cancer Diabetes Heart disease Hypertension Social History Smoking Status: Former smoker Second Hand Exposure: No; Do You Dip or Chew Tobacco: No; Hx Alcohol Use: Yes Alcohol type: beer Hx Substance Use: No Preferred Language: Moroccan Communication Ability: Effective Family Service Assistant Required: No Beliefs That Will Affect Care: None marital status: Current Living Situation: Spouse Other Information That Helps Us Care for You: No Feels Safe at Home: Yes Safety Concerns: Feels Safe At This Time Review of Systems Review of Systems: All systems reviewed & are unremarkable except as noted in HPI & below She has some swelling in her feet that she states dates to childhood. No recent exacerbations. She has fairly frequent headaches. She had fairly severe headaches leading up to her admission. Physical Exam Physical Exam: She is alert and oriented x3. Mood affect appear normal. She answered all questions appropriately. HEENT: Sclerae are anicteric. Pupils are equal and reactive to light and accommodation. Extraocular movements were intact. Neuro: Cranial nerves intact Neck: Examination of the submandibular region did not reveal any significant lymphadenopathy. . The thyroid was not enlarged. Lungs: Lungs are clear to auscultation bilaterally. There are no rales wheezes or rhonchi. She has normal respiratory effort without use of accessory muscles. There is normal pulmonary excursion. Cardiac: The rhythm was regular. S1 and S2 were normal. There are no murmurs on examination. The PMI was not markedly displaced on palpation. Chest: Well-healed midline surgical scar. Bilateral mastectomies. Abdomen: The abdomen was soft and nontender. Extremities: Patient has bilateral radial pulses that are equal in intensity. There is no evidence cyanosis or clubbing. There was no evidence of significant peripheral edema bilaterally. She is able to lift the left arm but has poor usage of the left hand. Skin: There are no rashes noted on examination today. Results & Data ([facility]) Vital Signs (Past 12 Hours) Vital Signs Temp Pulse Resp BP Pulse Ox 05/30/20 07:38 36.4 C L 58 L 22 185/96 H 96 05/30/20 04:27 36.5 C 63 18 144/90 H 95 05/29/20 23:56 36.7 C 68 20 159/89 H 93 Laboratory Results Abnormal Lab Results 05/29/20 05/30/20 05/30/20 07:11 06:51 06:51 WBC 5.25 RBC 4.04 L Hgb 12.9 Hct 38.4 MCV 95.0 MCH 31.9 MCHC 33.6 RDW Std Deviation 45.8 RDW Coeff of Indra 13.1 Plt Count 190 MPV 10.0 Immature Gran % (Auto) 0.2 Neut % (Auto) 56.2 Lymph % (Auto) 33.5 Tyler % (Auto) 5.9 Eos % (Auto) 3.8 Baso % (Auto) 0.4 Neut # (Auto) 2.95 Lymph # (Auto) 1.76 Tyler # (Auto) 0.31 Eos # (Auto) 0.20 Baso # (Auto) 0.02 Immature Gran # (Auto) 0.01 Sodium 143 Potassium 4.2 Chloride 112 H Carbon Dioxide 26 Anion Gap 5.0 BUN 17 Creatinine 1.18 Est Cr Clr Drug Dosing 50.1 Est GFR ( Amer) 56.4 Est GFR (Non-Af Amer) 48.7 BUN/Creatinine Ratio 14.7 Glucose 92 Calcium 9.1 Hepatitis C Ab Screen Neg Diagnostic Findings Echocardiogram obtained 05/29/2020: Normal LV systolic function and wall motion. Mild aortic regurgitation. Mild mitral regurgitation. No evidence of PFO Duplex reveals high-grade stenosis on the right with relatively normal left carotid artery Brain MRI demonstrated focal deficits consistent with embolic disease involving the right hemisphere. Neck and brain MRA demonstrated high-grade right carotid artery stenosis. PG Care Time/CCT Total # of Minutes Spent Total Time Spent with Patient: Total time spent is greater than 50% in coordination of care (as documented) at patient's floor/unit and/or counseling patient: Coding Level of Care Code 60006 Office/OBS Consult Lvl 4 Diagnoses Preoperative cardiovascular examination Z01.810
--- NOTE | 2020-05-30 17:44 | Billing Data ---
Date of Service May 30, 2020 Coding Level of Care Code 37545 Subseq Hosp Care Lvl 3
[2020-05-30] MEDS: OMEGA-3 (PURIFIED FISH OIL) 1 GM CAP PO SCH (20:31)
[2020-05-31] MEDS: ENOXAPARIN INJ 40 MG/0.4 ML SYR SQ SCH (05:51)
[2020-05-31 07:08] LABS: Basophils # (auto) 0.03 K/uL (0-0.2); Basophils % (auto) 0.6 %; Eosinophils # (auto) 0.18 K/uL (0-0.5); Eosinophils % (auto) 3.6 %; Hematocrit (blood only) 39.9 % (37-47); Hemoglobin 13.2 g/dL (12.0-16.0); Lymphocytes # (auto) 1.77 K/uL (1.2-3.4); Mean Corpuscular Hemoglobin 31.5 pg (25-34); Mean Corpuscular Hgb Conc 33.1 g/dL (32-36); Mean Corpuscular Volume 95.2 fL (80-100); Mean Platelet Volume 10.2 fL (7.4-10.4); Monocytes # (auto) 0.41 K/uL (0.11-0.59); Monocytes % (auto) 8.1 %; Neutrophils # (auto) 2.66 K/uL (1.4-6.5); Neutrophils % (auto) 52.7 %; Platelet Count 205 K/uL (130-400); RDW Coefficient of Variation 13.1 % (11.5-14.5); RDW Standard Deviation 45.4 fL (36.4-46.3); Red Blood Count 4.19 M/uL (4.2-5.4); White Blood Count 5.05 K/uL (4.8-10.8)
[2020-05-31 07:44] LABS: BUN Creatinine Ratio 13.6 (10-20); Calcium 9.3 mg/dl (8.5-10.1); Creatinine Clr Calc Pharmacy 51.8 ml/min; Est GFR (African American) 58.9; Est GFR (Non-African American) 50.8; Potassium 4.2 mmol/L (3.5-5.1)
[2020-05-31] MEDS: SERTRALINE HCL 100 MG TABLET PO SCH (09:08)
[2020-05-31] MEDS: PANTOprazole 40 MG TAB PO SCH (09:08)
[2020-05-31] MEDS: ASPIRIN 81 MG ECTAB PO SCH (09:09)
[2020-05-31] MEDS: CLOPIDOGREL BISULFATE 75 MG TAB PO SCH (09:09)
[2020-05-31] MEDS: EZETIMIBE 10 MG TABLET PO SCH (09:09)
[2020-05-31] MEDS: FLUTICASONE FUROATE 200MCG 14 PUFFS/INHALER INH SCH (09:09)
[2020-05-31] MEDS: OMEGA-3 (PURIFIED FISH OIL) 1 GM CAP PO SCH ×2 (09:10→20:30)
--- NOTE | 2020-05-31 09:23 | Cardiology Progress Note ---
Date of Service May 31, 2020 Assessment & Plan Admission and Anticipated Discharge Date Admission Date: May 28, 2020 Subjective She feels better this morning. She is getting improvement of use in her left arm now down to her wrist she still has difficulty using her left hand at all. She denies any chest pain or chest pressure. She has any palpitations or fluttering either now or before her stroke. Her headaches have improved. Her speech is normal. She appears at her baseline affect. She has a lower extremity edema. She notes she was walking at [place] about a mile 2-3 times a week with her dogs without any difficulty pre-stroke Results & Data ([facility]) Vital Signs (Past 12 Hours) Vital Signs Temp Pulse Resp BP Pulse Ox 05/31/20 07:48 36.8 C 59 L 20 146/79 H 95 05/30/20 22:46 36.5 C 73 18 116/73 95 She is awake alert and oriented x3 she is in no acute distress Lungs: Clear to auscultation bilaterally no rales rhonchi or wheezing Heart: Regular rate and rhythm no appreciable murmurs rubs or gallops Abdomen soft nontender senna positive bowel sounds Extremities: No clubbing cyanosis or edema Psychiatric: Her affect appeared appropriate (1) Carotid stenosis, right: (2) Stroke due to embolism: Symptom localization: R MCA watershed territories 3. Coronary bypass grafting x5 in 2016 4. No evidence of atrial fibrillation 5. Marked hyperlipidemia intolerant of statins 6. Hypertension now with permissive hypertension until planned right carotid endarterectomy 7. Normal left ventricular systolic function this admission with an EF in the range of 60 to 65% without evidence of regional wall motion abnormalities As discussed in the consultation by Dr. Albert she can proceed with surgery at intermediate risk. I believe her risk of cardiac complications is in the range of 3 to 4% this includes heart attack dying from cardiac causes, arrhythmias, congestive heart failure. As was discussed with the resident I would initiate Zetia 10 mg daily as she appears to be intolerant of statins due to fogginess and dizziness. We will need to assess her cost with ALICIA as an outpatient with regards to PCSK9 inhibitors given her markedly elevated LDL. After her surgery she should be restarted on her outpatient medication which. She is not on beta-blockers due to a relative bradycardia. And based on her blood pressure I would try to uptitrate her on losartan given his cardiovascular benefits. All this was discussed with the primary service
--- NOTE | 2020-05-31 13:06 | Medical Student Progress Note ---
Date of Service May 31, 2020 Assessment & Plan (1) Stroke due to embolism: The patient is a 64 y/o female with a history of previous OK and CABG in 2016, HTN, HLD, ORVILLE on CPAP, asthma, migraines and depression who presented with L sided arm and leg weakness and found to have infarcts in R posterior frontal, R parietal, and R occipital lobes. Additionally she was found to have high grade stenosis in the R ICA. 1) Embolic stroke MCA watershed area High grade stenosis in R ICA TTE showed no PFO No hx of Afib, continue telemetry monitoring - plan for R carotid endarterectomy (06/02) -Continue PT -ASA 81mg and Plavix 75mg x21 days followed by Plavix 75mg 2) Hypercholesterolemia Chol: 270, LDL: 204, HDL: 42 in the setting of statin (prava and atorva) intolerance (brain fog) -Continue Zetia 10mg PO and fish oil 1g PO BID -Consider possibility of outpatient PSK9 inhibitor 3) HTN Permissive HTN in the setting of ischemic stroke hold home amlodipine 2.5mg and olmesartan 5mg 4) Asthma Continue home albuterol, Flovent and Flonase 5)ORVILLE Continue home CPAP at night 6) Depression Continue home sertraline 200mg PO 7) Migraine Hold home sumatriptan in the setting of stroke 8) GERD Continue home pantoprazole 40mg PO Full code heart healthy diet lovenox DVT prophylaxis Admission and Anticipated Discharge Date Admission Date: May 28, 2020 Supervising Attestation Medical Student Supervision Note: I was personally present during medical student patient encounter and independently interviewed and examined the patient and verified the man history and physical, reviewed labs and image studies, discussed the case with Darian Donovan and agree with the findings and care plan. Subjective She states that her L sided strength has increased since yesterday and has been happy with the progress. She denies any side effects from the zetia and fish oil. She feels as though her headache, which has been present since the stroke, has been steadily improving. Review of Systems Review of Systems: She denies any fever, chills, nausea, vomiting, CP, abdominal pain, or dizziness. She states that her SOB is at baseline for her given her pulmonary disease. Physical Exam 2 Constitutional: Well appearing woman in no acute distress Eyes: PERRL, conjunctivae normal, anicteric sclerae Respiratory: Auscultation: lungs clear to auscultation bilaterally; no rales, no rhonchi and no wheezes Cardiovascular: Rate/Rhythm: regular rate and regular rhythm Heart Sounds: normal S1 and normal S2 Extremities: no edema Gastrointestinal (Abdomen): normal bowel sounds, soft, nontender, no hepatosplenomegaly Musculoskeletal: Strength: RUE and RLE 5/5 throughout, LUE: 1/5 transformation manager strength, 4/5 bicep flexion, 3/5 wrist extension. Sensation intact throughout. LLE: 5-/5 leg flexion at hip, sensation intact throughout. Neurologic: PERRL, EOMI, accommodation nl, no face palsy, no dysarthria CN's II-XI intact bilaterally Psychiatric: A+Ox3, euthymic affect Results & Data ([facility]) Vital Signs (Past 12 Hours) Vital Signs Temp Pulse Resp BP Pulse Ox 05/31/20 11:18 36.7 C 63 18 129/86 94 05/31/20 07:48 36.8 C 59 L 20 146/79 H 95 Results CMP Results: Na 143 mmol/L (136-145) 05/31/20 K 4.2 mmol/L (3.5-5.1) 05/31/20 Cl 109 mmol/L (98-107) H 05/31/20 CO2 26 mmol/L (21-32) 05/31/20 Anion Gap 7.0 (3-11) 05/31/20 BUN 16 mg/dl (7-18) 05/31/20 Creatinine 1.14 mg/dl (0.6-1.2) 05/31/20 BUN/Creatinine Ratio 13.6 (10-20) 05/31/20 Glu 89 mg/dl (70-99) 05/31/20 Ca 9.3 mg/dl (8.5-10.1) 05/31/20 Total Bilirubin 0.3 mg/dl (0.2-1) 05/28/20 Direct Bilirubin < 0.1 mg/dl (0-0.2) 11/08/17 AST 23 U/L (15-37) 05/28/20 ALT 26 U/L (12-78) 05/28/20 Alkaline Phosphatase 88 U/L (45-117) 05/28/20 TP 7.0 gm/dl (6.4-8.2) 05/28/20 Albumin 3.3 gm/dl (3.4-5.0) L 05/28/20 Globulin 3.7 gm/dl (2.5-4.0) 05/28/20 Albumin/Globulin Ratio 0.9 (0.9-2) 05/28/20 Results CBC w Diff: RBC 4.19 M/uL (4.2-5.4) L 05/31/20 WBC 5.05 K/uL (4.8-10.8) 05/31/20 Hgb 13.2 g/dL (12.0-16.0) 05/31/20 Hct 39.9 % (37-47) 05/31/20 MCV 95.2 fL (80-100) 05/31/20 MCH 31.5 pg (25-34) 05/31/20 MCHC 33.1 g/dL (32-36) 05/31/20 RDW Standard Deviation 45.4 fL (36.4-46.3) 05/31/20 RDW Coefficient of Variation 13.1 % (11.5-14.5) 05/31/20 Plt Count 205 K/uL (130-400) 05/31/20 MPV 10.2 fL (7.4-10.4) 05/31/20 Neutrophils (%) (Auto) 52.7 % 05/31/20 Lymphocytes (%) (Auto) 35.0 % 05/31/20 Monocytes # (Auto) 0.41 K/uL (0.11-0.59) 05/31/20 Eosinophils # (Auto) 0.18 K/uL (0-0.5) 05/31/20 Immature Granulocyte % (Auto) 0.0 % 05/31/20 Neutrophils # (Auto) 2.66 K/uL (1.4-6.5) 05/31/20 Lymphocytes # (Auto) 1.77 K/uL (1.2-3.4) 05/31/20 Monocytes # (Auto) 0.41 K/uL (0.11-0.59) 05/31/20 Eosinophils # (Auto) 0.18 K/uL (0-0.5) 05/31/20 Basophils # (Auto) 0.03 K/uL (0-0.2) 05/31/20 Immature Granulocyte # (Auto) 0.00 K/uL (0.00-0.02) 05/31/20
[2020-06-01 07:10] LABS: Basophils # (auto) 0.02 K/uL (0-0.2); Basophils % (auto) 0.4 %; Eosinophils # (auto) 0.13 K/uL (0-0.5); Eosinophils % (auto) 2.5 %; Hematocrit (blood only) 38.2 % (37-47); Hemoglobin 12.8 g/dL (12.0-16.0); Immature Granulocytes # (auto) 0.01 K/uL (0.00-0.02); Immature Granulocytes % (auto) 0.2 %; Lymphocytes # (auto) 1.77 K/uL (1.2-3.4); Mean Corpuscular Hgb Conc 33.5 g/dL (32-36); Mean Corpuscular Volume 95.5 fL (80-100); Monocytes # (auto) 0.44 K/uL (0.11-0.59); Monocytes % (auto) 8.4 %; Neutrophils # (auto) 2.84 K/uL (1.4-6.5); Neutrophils % (auto) 54.5 %; Platelet Count 179 K/uL (130-400); RDW Standard Deviation 45.6 fL (36.4-46.3); White Blood Count 5.21 K/uL (4.8-10.8)
[2020-06-01] MEDS ORDERED: AMLODIPINE BESYLATE 5 MG TAB PO ONE ×2 (07:32→08:00)
[2020-06-01 07:40] LABS: BUN Creatinine Ratio 17.9 (10-20); Calcium 9.1 mg/dl (8.5-10.1); Creatinine Clr Calc Pharmacy 52.3 ml/min; Est GFR (African American) 59.5; Est GFR (Non-African American) 51.3; Potassium 4.2 mmol/L (3.5-5.1)
[2020-06-01] MEDS ORDERED: AMLODIPINE BESYLATE 5 MG TAB PO SCH (09:00)
[2020-06-01] MEDS: ASPIRIN 81 MG ECTAB PO SCH (09:23)
[2020-06-01] MEDS: SERTRALINE HCL 100 MG TABLET PO SCH (09:24)
[2020-06-01] MEDS: OMEGA-3 (PURIFIED FISH OIL) 1 GM CAP PO SCH ×2 (09:24→20:08)
[2020-06-01] MEDS: PANTOprazole 40 MG TAB PO SCH (09:24)
[2020-06-01] MEDS: CLOPIDOGREL BISULFATE 75 MG TAB PO SCH (09:24)
[2020-06-01] MEDS: EZETIMIBE 10 MG TABLET PO SCH (09:24)
--- NOTE | 2020-06-01 09:50 | Medical Student Progress Note ---
Date of Service June 01, 2020 Assessment & Plan (1) Stroke due to embolism: The patient is a 64 y/o female with a history of previous MD and CABG in 2016, HTN, HLD, ORVILLE on CPAP, asthma, migraines and depression who presented with L sided arm and leg weakness and found to have infarcts in R posterior frontal, R parietal, and R occipital lobes. Additionally she was found to have high grade stenosis in the R ICA. 1) Embolic stroke MCA watershed area High grade stenosis in R ICA TTE showed no PFO No hx of Afib, continue telemetry monitoring - plan for R carotid endarterectomy (06/02) NPO at midnight -Continue PT -ASA 81mg and Plavix 75mg x21 days followed by Plavix 75mg 2) Hypercholesterolemia Chol: 270, LDL: 204, HDL: 42 in the setting of statin (prava and atorva) intolerance (brain fog) -Continue Zetia 10mg PO and fish oil 1g PO BID -Consider possibility of outpatient PSK9 inhibitor 3) HTN Outside of 24-48hr window of permissive HTN in the setting of ischemic stroke, per neuro treat HTN if SBP of 180. Given BP of 187/77 trial one does of amlodipine 2.5mg. Hold olmesartan 5mg 4) Asthma Continue home albuterol, Flovent and Flonase 5)ORVILLE Continue home CPAP at night 6) Depression Continue home sertraline 200mg PO 7) Migraine Hold home sumatriptan in the setting of stroke 8) GERD Continue home pantoprazole 40mg PO Full code heart healthy diet SCD for DVT prophy rather than lovenox in setting of recent stroke to prevent hemorrhagic conversion Admission and Anticipated Discharge Date Admission Date: May 28, 2020 Supervising Attestation Medical Student Supervision Note: I was personally present during medical student patient encounter and independently interviewed and examined the patient and verified the man history and physical, reviewed labs and image studies, discussed the case with Darian Donovan and agree with the findings and care plan. will titrate antihypertensives further for BP control. Subjective No acute concerns overnight, she states that she feels that her headache continues to improve. She is also happy with her progressive muscle strength improvement. She feels that she is able to move her L hand more than yesterday. She continues to ambulate in the hallway. Review of Systems Review of Systems: She denies any fever, chills, nausea, vomiting, diarrhea, constipation, abdominal pain, CP, palpitation, or dizziness. She states that her SOB continues to be at baseline for her given her pulmonary disease. Physical Exam Eyes: PERRL, conjunctivae normal, anicteric sclerae Respiratory: Auscultation: lungs clear to auscultation bilaterally; no rales, no rhonchi and no wheezes Cardiovascular: Rate/Rhythm: regular rate and regular rhythm Heart Sounds: normal S1 and normal S2 Extremities: no edema Gastrointestinal (Abdomen): normal bowel sounds, soft, nontender, no hepatosplenomegaly Musculoskeletal: Strength: RUE and RLE 5/5 throughout, LUE: 2/5 senior software development manager strength, 4/5 bicep flexion, 3/5 wrist extension. Sensation intact throughout. LLE: 5-/5 leg flexion at hip, sensation intact throughout. Neurologic: PERRL, EOMI, accommodation nl, no face palsy, no dysarthria CN's II-XI intact bilaterally Psychiatric: A+Ox3, euthymic affect Results & Data ([facility]) Vital Signs (Past 12 Hours) Vital Signs Temp Pulse Pulse Resp BP Pulse Ox 06/01/20 07:17 36.3 C L 52 L 18 187/77 H 98 06/01/20 06:29 49 L 06/01/20 04:03 36.6 C 50 L 16 139/70 97 06/01/20 00:27 66 05/31/20 23:54 35.9 C L 57 L 18 126/66 94
[2020-06-01] MEDS: FLUTICASONE FUROATE 200MCG 14 PUFFS/INHALER INH SCH (11:43)
--- NOTE | 2020-06-01 15:41 | Anesthesiology Consultation ---
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 History Surgery Operation Date: 06/02/20 11:40 Proposed Procedures p Right Carotid Endarterectomy - Hudson Up MD Height/Weight Height: 5 ft 2.5 in Weight: 87.7 kg Allergies Allergy/AdvReac Type Severity Reaction Status Date / Time Iodinated Contrast Media Allergy Intermediate HIVES Verified 05/28/20 19:22 Sulfa (Sulfonamide Allergy Intermediate HIVES Verified 05/28/20 19:22 Antibiotics) cefuroxime Allergy Unknown HIVES Verified 05/28/20 19:22 niacin Allergy Unknown HIVES Verified 05/28/20 19:22 pollen extracts Allergy Unknown HAY FEVER Verified 05/28/20 19:22 vancomycin AdvReac Intermediate "ITCHY AND Verified 05/28/20 19:22 RED ALL OVER" SANTOS Inhibitors AdvReac Mild Cough Verified 05/28/20 19:22 ceftriaxone AdvReac Mild URTICARIA Verified 05/28/20 19:22 egg AdvReac Mild nausea Verified 05/28/20 19:22 orange AdvReac Mild upset Verified 05/28/20 19:22 stomach adhesive AdvReac Unknown TAKES SKIN Verified 05/18/20 14:01 OFF - GETS RED AND SCABBY Medications Home Medications Medication Instructions Recorded Confirmed Last Taken aspirin 81 mg PO QAM 09/25/18 05/28/20 09/25/18 09:00 cholecalciferol (vitamin D3) 5,000 unit PO QAM 09/25/18 05/28/20 09/25/18 09:00 fluticasone propionate [Flonase 2 spray INTRANASAL DAILY PRN 09/25/18 05/28/20 Unknown Allergy Relief] fluticasone propionate [Flovent 2 puff INHALATION BID 09/25/18 05/28/20 09/25/18 HFA] albuterol sulfate 90 mcg/actuation 2 puffs INH Q4H PRN #18 gm 04/29/19 05/28/20 Unknown aerosol inhaler miscellaneous medical supply #1 ea 04/29/19 05/18/20 Unknown nitroglycerin 0.4 mg sublingual 0.4 mg SL UD PRN #30 tab 04/29/19 05/28/20 Unknown tablet sumatriptan succinate 6 mg/0.5 mL 0 mg SUBCUT .USE DIRECTED. ml 04/29/19 05/28/20 Unknown subcutaneous solution CPAP Machine #1 ea 01/12/20 05/18/20 Unknown amlodipine 2.5 mg tablet 2.5 mg PO DAILY 02/04/20 05/28/20 Unknown lansoprazole 15 mg capsule,delayed 15 mg PO DAILY 02/04/20 05/28/20 Unknown release olmesartan 5 mg tablet 5 mg PO DAILY 02/04/20 05/28/20 Unknown sertraline 100 mg tablet 200 mg PO DAILY tab 05/18/20 05/28/20 Unknown Active Medications Generic Name Dose Route Start Last Admin Trade Name Rigobertoq PRN Reason Stop Dose Admin Aspirin 81 mg 05/30/20 09:00 06/01/20 09:23 Aspirin 81 Mg Ectab PO 06/29/20 08:59 81 mg QAM LATRELL Administration Clopidogrel Bisulfate 75 mg 05/30/20 09:00 06/01/20 09:24 Clopidogrel Bisulfate 75 Mg Tab PO 06/29/20 08:59 75 mg QAM LATRELL Administration Ezetimibe 10 mg 05/31/20 09:00 06/01/20 09:24 Ezetimibe 10 Mg Tablet PO 06/30/20 08:59 10 mg QAM LATRELL Administration Fish Oil 1 gm 05/30/20 21:00 06/01/20 09:24 [place]-3 (Purified Fish Oil) 1 Gm Cap PO 06/29/20 20:59 1 gm BID LATRELL Administration Fluticasone Furoate 1 puffs 05/29/20 09:00 06/01/20 11:43 Fluticasone Furoate 200mcg 14 Puffs/Inhaler INH 06/28/20 08:59 1 puffs DAILY LATRELL Administration Pantoprazole Sodium 40 mg 05/29/20 09:00 06/01/20 09:24 Pantoprazole 40 Mg Tab PO 06/28/20 08:59 40 mg DAILY LATRELL Administration Sertraline HCl 200 mg 05/29/20 09:00 06/01/20 09:24 Sertraline Hcl 100 Mg Tablet PO 06/28/20 08:59 200 mg DAILY LATRELL Administration Past Medical History Medical History Alcohol intoxication Asthma, mild persistent Chest pain Chin laceration Chronic cholecystitis Facial abrasion Fall Hx of pancreatitis HX: breast cancer NSTEMI (non-ST elevated myocardial infarction) [place] (obstructive sleep apnea) Right knee DJD Past Family History Family History Other Cancer Diabetes Heart disease Hypertension Past Surgical History Surgical History Hx of CABG Hx of cataract surgery Hx of cholecystectomy Social History Smoking Status: Former smoker tobacco type: cigarettes Do You Dip or Chew Tobacco: No Hx Alcohol Use: Yes Alcohol type: beer alcohol intake frequency: 0-2 drinks per day Hx Substance Use: No Physical Exam Vital Signs Last Vital Signs Temp 97.7 F 06/01/20 15:03 Pulse 69 06/01/20 15:03 Resp 18 06/01/20 15:03 BP 149/73 H 06/01/20 15:03 Pulse Ox 94 06/01/20 15:03 Testing Laboratory Results 06/01/20 06:41 06/01/20 06:41 PT 10.2 Seconds (9.0-12.0) 05/28/20 17:00 INR 1.0 (0.9-1.1) 05/28/20 17:00 APTT 23.4 Seconds (21.0-31.0) 05/28/20 17:00 Hemoglobin A1c 5.6 % (4.5-5.6) 05/28/20 17:00 Blood Type A Positive 05/28/20 17:13 Antibody Screen NEGATIVE 05/28/20 17:13 Electrocardiogram Date: 05/28/20 Normal sinus rhythm, rate 71 bpm Possible Left atrial enlargement Nonspecific ST abnormality Abnormal ECG When compared with ECG of 08-NOV-2017 19:12, T wave inversion more evident in Lateral leads Confirmed by Alexander Albert ([id number]) on 05/29/2020 4:46:30 PM Echocardiogram Date: 05/29/20 LV systolic function is normal, EF 60-65% Injection of contrast documented no interatrial shunt Mild aortic regurgitation There is mild mitral regurgitation Right ventricular systolic pressure is normal Other Testing Carotid doppler 05/28/20 FINDINGS: Antegrade flow is seen in the bilateral vertebral arteries. The brachial pressures were not obtained. Extensive soft plaque seen within the right carotid bulb. The peak systolic velocity within the right ICA is 536 cm/s proximally at the carotid bulb. The right systolic ratio is 20.2. The peak systolic velocity within the left ICA is 98 cm/s. The left systolic ratio is 1.2. IMPRESSION: 1. High-grade/critical stenosis seen within the proximal right internal carotid artery at the carotid bulb due to the noncalcified atherosclerotic plaque. This confirms the neck MRA findings. 2. No significant stenosis within the left carotid arteries.
[2020-06-02] MEDS ORDERED: CLINDAMYCIN 600 MG/54 ML BAG IV SCH (06:00)
[2020-06-02 06:27] LABS: Basophils # (auto) 0.02 K/uL (0-0.2); Basophils % (auto) 0.4 %; Eosinophils # (auto) 0.15 K/uL (0-0.5); Eosinophils % (auto) 2.7 %; Hemoglobin 12.9 g/dL (12.0-16.0); Immature Granulocytes # (auto) 0.01 K/uL (0.00-0.02); Immature Granulocytes % (auto) 0.2 %; Lymphocytes # (auto) 1.61 K/uL (1.2-3.4); Lymphocytes % (auto) 29.5 %; Mean Corpuscular Hemoglobin 32.3 pg (25-34); Mean Corpuscular Hgb Conc 33.9 g/dL (32-36); Monocytes % (auto) 9.2 %; Neutrophils # (auto) 3.17 K/uL (1.4-6.5); Platelet Count 178 K/uL (130-400); RDW Standard Deviation 44.8 fL (36.4-46.3); White Blood Count 5.46 K/uL (4.8-10.8)
[2020-06-02 06:37] LABS: Partial Thromboplastin Ratio 0.9; Partial Thromboplastin Time 24.5 Seconds (21.0-31.0); Prothrombin Time 10.4 Seconds (9.0-12.0)
[2020-06-02] MEDS ORDERED: ROCURONIUM BROMIDE 10 MG/ML 5 ML VIAL IV ONE ×4 (06:43→11:41)
[2020-06-02] MEDS ORDERED: fentaNYL citrate 100 MCG/2 ML VIAL ONE ×3 (06:44→12:25)
[2020-06-02] MEDS ORDERED: LIDOCAINE HCL 2% 2 ML VIAL/AMP(20MG/ML) INFIL ONE (06:44)
[2020-06-02] MEDS ORDERED: DEXAMETHASONE SOD INJ 4 MG/ML VIAL ONE (06:44)
[2020-06-02] MEDS ORDERED: PROPOFOL IV EMULSION 10 MG/ML 20 ML VIAL IV ONE (06:44)
[2020-06-02] MEDS ORDERED: ONDANSETRON INJ 2 MG/ML 2 ML VIAL ONE (06:44)
[2020-06-02] MEDS ORDERED: MIDAZOLAM HCL 1 MG/ML 2ML VIAL ONE (06:44)
[2020-06-02 06:56] LABS: BUN Creatinine Ratio 14.9 (10-20); Calcium 9.3 mg/dl (8.5-10.1); Creatinine Clr Calc Pharmacy 48.4 ml/min; Est GFR (African American) 54.2; Est GFR (Non-African American) 46.8; Potassium 4.4 mmol/L (3.5-5.1)
[2020-06-02] MEDS ORDERED: PROTAMINE SULFATE 10 MG/ML 5 ML VIAL ONE (06:59)
[2020-06-02] MEDS ORDERED: CEFAZOLIN 250 MG/ML 1 GM VIAL ONE (07:25)
[2020-06-02] MEDS ORDERED: LIDOCAINE HCL 1% 20 ML VIAL ONE (07:25)
[2020-06-02] MEDS ORDERED: HEPARIN (PORCINE) 1000 UNIT/ML 10 ML (CATH LAB USE ONLY) ONE (07:25)
[2020-06-02] MEDS ORDERED: GELATIN SPONGE SZ 100 ONE (07:25)
[2020-06-02] MEDS ORDERED: EPINEPHrine INJ 1 MG/ML AMP ONE (07:26)
[2020-06-02] MEDS ORDERED: BUPIVACAINE 0.5 % 5 MG/1 ML MPF 30ML VIAL ONE (07:26)
[2020-06-02] MEDS ORDERED: THROMBIN FOR SOLN 20000 UNIT KIT ONE (07:26)
[2020-06-02] MEDS ORDERED: NITROGLYCERIN/D5W 100 MCG/ML BTL ONE (07:52)
[2020-06-02] MEDS ORDERED: SODIUM CHLORIDE 0.9% 250 ML IV PRN (07:55)
[2020-06-02] MEDS ORDERED: ATROPINE SULFATE 0.1 MG/ML 10ML SYR IV PRN (09:10)
[2020-06-02] MEDS ORDERED: ePHEDrine sulfate 50 MG/ML AMP IV PRN (09:10)
[2020-06-02] MEDS ORDERED: ONDANSETRON INJ 2 MG/ML 2 ML VIAL IV PRN (09:10)
[2020-06-02] MEDS ORDERED: HYDROmorphone INJ 1 MG/ML SYRINGE IV PRN (09:10)
--- NOTE | 2020-06-02 09:40 | History & Physical Bridge Note ---
Date of Service June 02, 2020 History & Physical Bridge Note Patient for a right CEA. I have discussed the risks options and benefits of the procedure with the patient. The patient understands the risks options and benefits and agrees to the procedure. I have examined the patient, reviewed the History & Physical and in the interval since the performance of the History & Physical I have noted the following changes of clinical significance: no changes noted
[2020-06-02] MEDS ORDERED: SUGAMMADEX SODIUM 200 MG/2 ML VIAL IV ONE (10:58)
[2020-06-02] MEDS: EZETIMIBE 10 MG TABLET PO SCH (11:01)
[2020-06-02] MEDS: OMEGA-3 (PURIFIED FISH OIL) 1 GM CAP PO SCH ×2 (11:01→21:22)
[2020-06-02] MEDS: PANTOprazole 40 MG TAB PO SCH (11:01)
[2020-06-02] MEDS: CLOPIDOGREL BISULFATE 75 MG TAB PO SCH (11:01)
[2020-06-02] MEDS: SERTRALINE HCL 100 MG TABLET PO SCH (11:01)
[2020-06-02] MEDS: FLUTICASONE FUROATE 200MCG 14 PUFFS/INHALER INH SCH (11:01)
[2020-06-02] MEDS: ASPIRIN 81 MG ECTAB PO SCH (11:01)
[2020-06-02] MEDS ORDERED: HEPARIN SOD (PORCINE) 1000 UNIT/ML 10 ML VIAL ONE (11:50)
[2020-06-02] MEDS ORDERED: PHENYLEPHRINE HCL 10 MG/ML VIAL ONE (11:50)
[2020-06-02] MEDS ORDERED: ePHEDrine sulfate 50 MG/ML SYR ONE (11:50)
[2020-06-02] MEDS ORDERED: SODIUM CHLORIDE 0.9% INJ 10 ML VIAL ONE (13:05)
--- NOTE | 2020-06-02 13:10 | Post Operative Brief Note ---
Immediate Post Op Note v1 Date of Surgery June 02, 2020 Pre & Post Diagnosis Operation Date: 06/02/20 11:40 Pre-Op Diagnosis: Carotid stenosis right internal carotid artery with CVA Post-Op Diagnosis: Carotid stenosis right internal carotid artery with CVA I identified the patient and participated in the time-out.: Yes Procedure Operation Date: 06/02/20 11:40 Actual Procedures p Right Carotid Endarterectomy with Bovine Patch(Right) - Hudson Up MD Surgeon Hudson Up MD Water Fabricator Operator MD Edwige LJoseyMinarchick,PAC Estimated Blood Loss 200 Findings Consistent with Post-Op Diagnosis intraplaque hemorrhage with fresh clot Anesthesia Type General Complications none Disposition Accompanied Patient To Recovery: No Disposition: Recovery Room
--- NOTE | 2020-06-02 13:57 | Operative Report ---
Post Operative Report Pre & Post Diagnosis Operation Date: 06/02/20 11:40 Pre-Op Diagnosis: Carotid stenosis right internal carotid artery with CVA Post-Op Diagnosis: Carotid stenosis right internal carotid artery with CVA I identified the patient and participated in the time-out.: Yes Procedure Operation Date: 06/02/20 11:40 Actual Procedures p Right Carotid Endarterectomy with Bovine Patch(Right) - Hudson Up MD Surgeon Hudson Up MD Life Sciences Director MD Merlene Hunt,PAC Estimated Blood Loss 200 Findings Consistent with Post-Op Diagnosis Specimens None Anesthesia Type General Complications none Disposition Accompanied Patient To Recovery: No Disposition: Recovery Room Indications 64 yoF who sustained a stroke with associated L-sided extremity weakness found to have near-occlusion of her R common carotid artery. Description of Procedure The patient was taken to the operating room and placed in supine position. After general anesthesia was accomplished the right side of the neck was prepped and draped in a sterile manner. The patient was identified and a timeout performed. A longitudinal neck incision was then made coursing along the medial border of the sternocleidomastoid muscle. The incision was taken down through the platysmal layer. The facial vein was identified, ligated, and divided. The common carotid artery was then seen. It was dissected free down to the omohyoid muscle. The dissection was carried upward until the external carotid artery and superior thyroid artery was seen. The superior thyroid artery was slung with a 2-0 silk suture. The external carotid was slung with a red rubber vessel loop. Next the dissection was carried up along the internal carotid artery. This was carried upward to beyond the area of narrowing. The hypoglossal nerve was seen and preserved. The patient was heparinized. After adequate heparinization was accomplished, the internal, external, and common carotid arteries were clamped. A longitudinal arteriotomy was started on the common carotid artery and extended upward along the internal carotid artery to a point beyond the area of narrowing. There was calcified plaque of the internal carotid artery origin with intraplaque hemorrhage and subacute free thrombus present. A Doppler shunt was then placed in the internal, followed by the common carotid artery and held in place with Justino clamps. There was good back bleeding seen from the internal carotid artery. The endarterectomy was then started in the appropriate plane on the common carotid artery. This was carried upward and the external carotid was everted and endarterectomized. The endarterectomy was then carried up along the internal carotid artery till a nice feathering breakoff point was accomplished beyond the end of the plaque. The endarterectomy was then carried down further on the common carotid artery. At end of the arteriotomy, the plaque was then transected. Under loop magnification, all loose debris and flaps werer removed. There is no distal flap seen at the end of the endarterectomy site. The arteriotomy then closed using an bovine patch and a running 6-0 Prolene suture. This was done in the usual vascular fashion. Prior to completing the closure, the doppler shunt was removed and the internal and common carotid arteries were reclamped. Backbleeding and forward bleeding was allowed to occur. The flow surface was irrigated with heparinized saline. The final few sutures were then placed and securely tied. Clamps were then removed off the external and common carotid arteries. The clamp was then removed the internal carotid artery. Good distal flow was seen. Adequate hemostasis was seen of the patch. The wound was inspected and adequate hemostasis was obtained. The wound was irrigated with antibiotic solution. The wound edges were injected with 1% Marcaine with epi. It was then closed with a running 3-0 Vicryl suture for the platysmal layer and a 4-0 subcuticular Vicryl suture for the skin edges. Dermabond was used for dressing. The patient left the operation room in satisfactory condition and tolerated the procedure well. All needle and sponge counts were correct at the end of the procedure. Dr. Up was present for, directly supervised, and participated in the entirety of the procedure. I attest to the content of the Intraoperative Record and any orders documented therein. Any exceptions are noted below.
[2020-06-02] MEDS: fentaNYL citrate 100 MCG/2 ML VIAL IV PRN ×2 (14:15→14:20)
--- NOTE | 2020-06-02 14:47 | Anesthesiology Progress Note ---
Date of Service June 02, 2020 Anesthesia Post Procedure Vital Signs Vital Signs: Temp Pulse Pulse Pulse Resp BP BP 06/02/20 14:35 67 19 124/66 06/02/20 14:25 36.4 C L 65 14 117/65 06/02/20 14:15 66 15 118/63 06/02/20 14:05 66 15 123/68 06/02/20 13:55 63 16 130/68 06/02/20 13:49 36.2 C L 64 15 139/70 06/02/20 09:05 36.6 C 57 L 18 185/85 H 06/02/20 07:35 36.4 C L 57 L 18 155/74 H 06/02/20 06:20 48 L 06/02/20 03:45 36.5 C 66 18 130/82 06/02/20 00:48 73 06/01/20 23:00 36.6 C 73 18 137/86 06/01/20 19:00 36.7 C 64 18 153/82 H 06/01/20 16:00 74 06/01/20 15:03 36.5 C 69 18 149/73 H Pulse Ox 06/02/20 14:35 95 06/02/20 14:25 97 06/02/20 14:15 97 06/02/20 14:05 97 06/02/20 13:55 97 06/02/20 13:49 98 06/02/20 09:05 99 06/02/20 07:35 93 06/02/20 06:20 06/02/20 03:45 95 06/02/20 00:48 06/01/20 23:00 94 06/01/20 19:00 97 06/01/20 16:00 06/01/20 15:03 94 Pain Intensity Head: Pain Intensity: 8 Right Neck: Pain Intensity: 4 Transfer of Care Handoff Completed per policy Notes Mental Status: alert / awake / arousable and participated in evaluation Patient Amnestic to Procedure: Yes Nausea / Vomiting: adequately controlled Pain: adequately controlled Airway Patency, RR, SpO2: stable & adequate BP & HR: stable & adequate Hydration State: stable & adequate Anesthetic Complications: no major complications apparent and Pt Satisfied with anesthetic care
--- NOTE | 2020-06-02 16:09 | Critical Care Consultation ---
Date of Consultation June 02, 2020 Assessment & Plan (1) Carotid stenosis, right: Patient is status post right carotid endarterectomy today. Maintain blood pressure per parameters of vascular surgery. Continue dual antiplatelet therapy given her history of coronary artery disease and strokes. Continue Zetia. Monitor for signs of airway compromise and bleeding. Monitor mental status closely given recent stroke and now recent endarterectomy. Should be stable to transfer to the floor tomorrow. Diet per vascular surgery. Pain control be deferred to vascular surgery as well. ICU is available for any critical care needs. Thank you for the consult. (2) Stroke due to embolism: (3) Asthma, mild persistent: (4) [place] (obstructive sleep apnea): (5) NSTEMI (non-ST elevated myocardial infarction): History of Present Illness Reason for Consultation: ICU monitoring status post carotid endarterectomy on the right Requesting Physician: ICU monitoring status post carotid artery endarterectomy on the right Attending Physician: Waleska Schneider MD History of Present Illness 64-year-old female with a past medical history of hypertension, obstructive sleep apnea on CPAP, migraines, asthma, coronary artery bypass grafting and alcohol use who presented to the hospital with headache and weakness for 3 to 4 days on 05/28/2020. She then subsequently began having weakness in her left upper extremity and underwent a CT head that demonstrated punctate chronic infarcts in the right MCA distribution. Subsequent MRI of the brain demonstrated punctate acute to subacute strokes in the right occipital lobe as well as several other punctate to small infarcts in the right MCA/KELLY/PSYCHIATRIC MENTAL HEALTH NURSE watershed distribution. MRA of the head and neck demonstrated congenitally absent right KELLY, dominant left vertebral artery with minimal to absent flow in the right vertebral artery with narrow caliber basilar artery, bilateral laser print operator and focal high-grade stenosis of the right ICA. Carotid Dopplers demonstrated high-grade/critical stenosis at the right ICA. Echo cardiogram on 05/29/2020 demonstrated no cardiac source of emboli, mild aortic regurgitation and normal left ventricular function. Cardiology evaluated the patient from a preoperative perspective and deemed appropriate for surgery. She underwent a right endarterectomy with bovine patch today. She is complaining of some pain and swelling in the right neck region. She continues to have weakness in the left arm but it has improved substantially. Allergies Allergy/AdvReac Type Severity Reaction Status Date / Time Iodinated Contrast Media Allergy Intermediate HIVES Verified 09/18/20 19:22 Sulfa (Sulfonamide Allergy Intermediate HIVES Verified 05/28/20 19:22 Antibiotics) cefuroxime Allergy Unknown HIVES Verified 05/28/20 19:22 niacin Allergy Unknown HIVES Verified 05/28/20 19:22 pollen extracts Allergy Unknown HAY FEVER Verified 05/28/20 19:22 vancomycin AdvReac Intermediate "ITCHY AND Verified 05/28/20 19:22 RED ALL OVER" SANTOS Inhibitors AdvReac Mild Cough Verified 05/28/20 19:22 ceftriaxone AdvReac Mild URTICARIA Verified 05/28/20 19:22 egg AdvReac Mild nausea Verified 05/28/20 19:22 orange AdvReac Mild upset Verified 05/28/20 19:22 stomach adhesive AdvReac Unknown TAKES SKIN Verified 05/18/20 14:01 OFF - GETS RED AND SCABBY Home Medications Home Medications Medication Instructions Recorded Confirmed Type aspirin 81 mg PO QAM 09/25/18 05/28/20 History cholecalciferol (vitamin D3) 5,000 unit PO QAM 09/25/18 05/28/20 History fluticasone propionate [Flonase 2 spray INTRANASAL DAILY PRN 09/25/18 05/28/20 History Allergy Relief] fluticasone propionate [Flovent 2 puff INHALATION BID 09/25/18 05/28/20 History HFA] albuterol sulfate 90 mcg/actuation 2 puffs INH Q4H PRN #18 gm 04/29/19 05/28/20 Rx aerosol inhaler miscellaneous medical supply #1 ea 04/29/19 05/18/20 Rx nitroglycerin 0.4 mg sublingual 0.4 mg SL UD PRN #30 tab 04/29/19 05/28/20 History tablet sumatriptan succinate 6 mg/0.5 mL 0 mg SUBCUT .USE DIRECTED. ml 04/29/19 05/28/20 History subcutaneous solution CPAP Machine #1 ea 01/12/20 05/18/20 Rx amlodipine 2.5 mg tablet 2.5 mg PO DAILY 02/04/20 05/28/20 History lansoprazole 15 mg capsule,delayed 15 mg PO DAILY 02/04/20 05/28/20 History release olmesartan 5 mg tablet 5 mg PO DAILY 02/04/20 05/28/20 History sertraline 100 mg tablet 200 mg PO DAILY tab 05/18/20 05/28/20 History Patient History Medical History Alcohol intoxication Asthma, mild persistent Chest pain Chin laceration Chronic cholecystitis Facial abrasion Fall Hx of pancreatitis HX: breast cancer NSTEMI (non-ST elevated myocardial infarction) [place] (obstructive sleep apnea) Right knee DJD Surgical History Hx of CABG Hx of cataract surgery Hx of cholecystectomy Family History Other Cancer Diabetes Heart disease Hypertension Social History Smoking Status: Former smoker Second Hand Exposure: No; Do You Dip or Chew Tobacco: No; Hx Alcohol Use: Yes Alcohol type: beer Hx Substance Use: No Preferred Language: Serbian Communication Ability: Effective Culture Media Laboratory Assistant Required: No Beliefs That Will Affect Care: None marital status: Current Living Situation: Spouse Other Information That Helps Us Care for You: No Feels Safe at Home: Yes Safety Concerns: Feels Safe At This Time Assistive Devices: Glasses Assistive Devices Comment: cpap Review of Systems Review of Systems: All systems reviewed & are unremarkable except as noted in HPI & below Physical Exam Constitutional: Chronically ill-appearing female in mild distress due to pain in her right neck. Eyes: PERRL, conjunctivae normal, anicteric sclerae ENMT: external ear and nose normal, oropharynx normal Neck: Mild right neck swelling and bruising. Tender to palpation. Respiratory: normal respiratory effort, lungs clear to auscultation Cardiovascular: RRR, no murmur, no edema Gastrointestinal (Abdomen): normal bowel sounds, soft, nontender, no hepatosplenomegaly Musculoskeletal: no cyanosis or clubbing, extremities motor strength 5/5 Skin: no rashes, warm and dry Neurologic: 3/5 weakness in the left upper extremity. Psychiatric: A+Ox3, euthymic affect Results & Data Results & Data ([facility]) Vital Signs (Past 12 Hours) Vital Signs Temp Pulse Pulse Pulse Resp BP BP 06/02/20 14:35 67 19 124/66 06/02/20 14:25 97.5 F L 65 14 117/65 06/02/20 14:15 66 15 118/63 06/02/20 14:05 66 15 123/68 06/02/20 13:55 63 16 130/68 06/02/20 13:49 97.2 F L 64 15 139/70 06/02/20 09:05 97.9 F 57 L 18 185/85 H 06/02/20 07:35 97.5 F L 57 L 18 155/74 H 06/02/20 06:20 48 L Pulse Ox 06/02/20 14:35 95 06/02/20 14:25 97 06/02/20 14:15 97 06/02/20 14:05 97 06/02/20 13:55 97 06/02/20 13:49 98 06/02/20 09:05 99 06/02/20 07:35 93 06/02/20 06:20 I reviewed vital signs, labs and imaging Coding Level of Care Code 69665 Inpt Consult Level 4 Diagnoses Carotid stenosis, right I65.21 Stroke due to embolism I63.9 Asthma, mild persistent J45.30 [place] (obstructive sleep apnea) G47.33 NSTEMI (non-ST elevated myocardial infarction) I21.4
[2020-06-02] MEDS ORDERED: MoRPHine SULFATE 2 MG/ML CARP IV PRN (16:16)
[2020-06-02] MEDS: LACTATED RINGER'S 1,000 ML IV SCH (16:17)
[2020-06-02] MEDS: CLINDAMYCIN 600 MG in DEXTROSE 5% 50 ML IV SCH (18:14)
--- NOTE | 2020-06-02 19:05 | Hospitalist Progress Note ---
Date of Service June 02, 2020 Assessment & Plan Admission and Anticipated Discharge Date Admission Date: May 28, 2020 The patient is a 64 y/o female with a history of previous CA and CABG in 2016, HTN, HLD, ORVILLE on CPAP, asthma, migraines and depression who presented with L sided arm and leg weakness and found to have infarcts in R posterior frontal, R parietal, and R occipital lobes. Additionally she was found to have high grade stenosis in the R ICA. Embolic stroke MCA watershed area High grade stenosis in R ICA TTE showed no PFO No hx of Afib, continue telemetry monitoring while inpatient - now s/p R carotid endarterectomy (06/02) -Continue PT -ASA 81mg and Plavix 75mg x21 days followed by Plavix 75mg Right carotid artery ds - now s/p R carotid endarterectomy (06/02) Hypercholesterolemia Chol: 270, LDL: 204, HDL: 42 in the setting of statin (prava and atorva) intolerance (brain fog) -Continue Zetia 10mg PO and fish oil 1g PO BID -Consider possibility of outpatient PSK9 inhibitor HTN Outside of 24-48hr window of permissive HTN in the setting of ischemic stroke, per neuro treat HTN if SBP of 180. Hold olmesartan 5mg and Amlodipine 2.5mg Asthma Continue home albuterol, Flovent and Flonase [place] Continue home CPAP at night Depression Continue home sertraline 200mg PO Migraine Hold home sumatriptan in the setting of stroke GERD Continue home pantoprazole 40mg PO Full code heart healthy diet SCD for DVT prophy rather than Lovenox in setting of recent stroke to prevent hemorrhagic conversion Supervising Physician Co-Signing Physician Notes Resident Physician Supervision Note: I independently interviewed and examined the patient and verified the man history and physical, reviewed labs and image studies, discussed the case with the resident Dr. Hudson and agree with the findings and care plan. Subjective Doing well this morning. Patient did not have any questions or concerns. Review of Systems Review of Systems: She denies any fever, chills, nausea, vomiting, diarrhea, constipation, abdominal pain, CP, palpitation, or dizziness. Physical Exam Physical Exam: Eyes PERRL, conjunctivae normal, anicteric sclerae Respiratory Auscultation: lungs clear to auscultation bilaterally; no rales, no rhonchi and no wheezes Cardiovascular Rate/Rhythm: regular rate and regular rhythm Heart Sounds: normal S1 and normal S2 Extremities: no edema Gastrointestinal (Abdomen) normal bowel sounds, soft, nontender, no hepatosplenomegaly Musculoskeletal Strength: RUE and RLE 5/5 throughout, LUE: 2/5 dinkey dispatcher strength, 4/5 bicep flexion, 3/5 wrist extension. Sensation intact throughout. LLE: 5/5 leg flexion at hip, sensation intact throughout. Neurologic PERRL, EOMI, accommodation nl, no face palsy, no dysarthria CN's II-XI intact bilaterally Psychiatric A+Ox3, euthymic affect Results & Data Results & Data ([facility]) Vital Signs (Past 12 Hours) Vital Signs Temp Pulse Pulse Pulse Resp BP BP 06/02/20 18:57 84 17 111/72 06/02/20 18:00 80 17 06/02/20 17:56 77 18 110/59 L 06/02/20 17:53 76 06/02/20 17:41 76 18 107/50 L 06/02/20 17:11 66 20 126/65 06/02/20 16:41 64 18 120/64 06/02/20 16:00 64 12 06/02/20 15:56 63 16 135/67 06/02/20 15:45 66 20 06/02/20 15:30 65 63 18 119/67 06/02/20 15:16 65 19 120/64 06/02/20 15:15 65 13 06/02/20 15:14 36.7 C 66 9 L 06/02/20 14:35 67 19 124/66 06/02/20 14:25 36.4 C L 65 14 117/65 06/02/20 14:15 66 15 118/63 06/02/20 14:05 66 15 123/68 06/02/20 13:55 63 16 130/68 06/02/20 13:49 36.2 C L 64 15 139/70 06/02/20 09:05 36.6 C 57 L 18 06/02/20 07:35 36.4 C L 57 L 18 BP Pulse Ox 06/02/20 18:57 97 06/02/20 18:00 96 06/02/20 17:56 96 06/02/20 17:53 06/02/20 17:41 96 06/02/20 17:11 100 06/02/20 16:41 98 06/02/20 16:00 98 06/02/20 15:56 97 06/02/20 15:45 96 06/02/20 15:30 96 06/02/20 15:16 06/02/20 15:15 06/02/20 15:14 06/02/20 14:35 95 06/02/20 14:25 97 06/02/20 14:15 97 06/02/20 14:05 97 06/02/20 13:55 97 06/02/20 13:49 98 06/02/20 09:05 185/85 H 99 06/02/20 07:35 155/74 H 93 CBC Results Results Complete Blood Count Results: RBC 3.60 M/uL (4.2-5.4) L 06/03/20 WBC 8.08 K/uL (4.8-10.8) 06/03/20 Hgb 11.2 g/dL (12.0-16.0) L 06/03/20 Hct 35.4 % (37-47) L 06/03/20 Plt Count 193 K/uL (130-400) 06/03/20 Chemistry (BMP) Results BMP Results: Sodium 141 mmol/L (136-145) 06/03/20 Potassium 3.8 mmol/L (3.5-5.1) 06/03/20 Chloride 108 mmol/L (98-107) H 06/03/20 BUN 18 mg/dl (7-18) 06/03/20 Creatinine 1.04 mg/dl (0.6-1.2) 06/03/20 Glucose 106 mg/dl (70-99) H 06/03/20 Resident Activity Tracking Resident Involvement: Resident Care Provided Care Provided: [facility]
[2020-06-02] MEDS: OXYCODONE/ACETAMINOPHEN 5mg/325mg TAB PO PRN (19:28)
[2020-06-03] MEDS: OXYCODONE/ACETAMINOPHEN 5mg/325mg TAB PO PRN ×5 (00:47→23:03)
[2020-06-03] MEDS: LACTATED RINGER'S 1,000 ML IV SCH ×2 (01:04→07:38)
[2020-06-03] MEDS: CLINDAMYCIN 600 MG in DEXTROSE 5% 50 ML IV SCH (01:05)
[2020-06-03 04:39] LABS: Basophils # (auto) 0.01 K/uL (0-0.2); Basophils % (auto) 0.1 %; Eosinophils # (auto) 0.05 K/uL (0-0.5); Eosinophils % (auto) 0.6 %; Hematocrit (blood only) 35.4 % (37-47); Hemoglobin 11.2 g/dL (12.0-16.0); Immature Granulocytes # (auto) 0.02 K/uL (0.00-0.02); Immature Granulocytes % (auto) 0.2 %; Lymphocytes # (auto) 1.34 K/uL (1.2-3.4); Lymphocytes % (auto) 16.6 %; Mean Corpuscular Hemoglobin 31.1 pg (25-34); Mean Corpuscular Hgb Conc 31.6 g/dL (32-36); Mean Corpuscular Volume 98.3 fL (80-100); Mean Platelet Volume 9.7 fL (7.4-10.4); Monocytes % (auto) 7.4 %; Neutrophils # (auto) 6.06 K/uL (1.4-6.5); Neutrophils % (auto) 75.1 %; Platelet Count 193 K/uL (130-400); RDW Coefficient of Variation 13.3 % (11.5-14.5); RDW Standard Deviation 47.9 fL (36.4-46.3); White Blood Count 8.08 K/uL (4.8-10.8)
[2020-06-03 05:01] LABS: BUN Creatinine Ratio 17.1 (10-20); Calcium 8.1 mg/dl (8.5-10.1); Creatinine Clr Calc Pharmacy 56.8 ml/min; Est GFR (African American) 65.8; Est GFR (Non-African American) 56.7; Potassium 3.8 mmol/L (3.5-5.1)
--- NOTE | 2020-06-03 07:40 | Surgery Progress Note ---
Date of Service June 03, 2020 Assessment & Plan (1) Carotid stenosis, right: Patient underwent uneventful right CEA for hemorrhagic plaque of the right internal carotid artery. Her strength is slightly better in left arm than pre op. She does have slight hoarseness today. Will transfer to floor Will have speech reevaluate patient. Admission and Anticipated Discharge Date Admission Date: May 28, 2020 Subjective Patient complaining of right neck pain. Able to move left hand slightly better and moving her thumb better today. No other complaints. Claims she has swallowed liquids since surgery Physical Exam Respiratory: normal respiratory effort; no respiratory distress Cardiovascular: Rate/Rhythm: regular rate and regular rhythm Skin: + incision (dry and clean with mild edema and ecchymosis) Neurologic: Grasp in left hand slightly better today. Able to move left thumb more than pre op. Does have slight hoarseness today. Results & Data ([facility]) Vital Signs (Past 12 Hours) Vital Signs Temp Pulse Resp BP Pulse Ox 06/03/20 06:00 64 12 140/78 99 06/03/20 05:30 76 15 134/63 97 06/03/20 05:00 70 15 125/54 L 98 06/03/20 04:30 67 15 124/79 98 06/03/20 04:00 36.8 C 76 18 127/60 95 06/03/20 03:30 77 17 117/62 93 06/03/20 03:00 71 17 116/54 L 96 06/03/20 02:30 70 15 121/56 L 98 06/03/20 02:00 68 16 123/61 98 06/03/20 01:30 63 14 139/73 99 06/03/20 01:00 72 21 156/86 H 98 06/03/20 00:30 76 17 108/64 96 06/03/20 00:00 36.7 C 76 21 103/55 L 94 06/02/20 23:30 82 16 109/56 L 96 06/02/20 23:00 82 18 118/55 L 97 06/02/20 22:30 80 19 112/55 L 97 06/02/20 22:00 75 15 120/59 L 97 06/02/20 21:30 79 14 113/66 99 06/02/20 21:00 80 16 120/51 L 97 06/02/20 20:30 80 16 117/48 L 97 06/02/20 20:00 36.6 C 76 15 125/73 98
[2020-06-03] MEDS: CLOPIDOGREL BISULFATE 75 MG TAB PO SCH (08:33)
[2020-06-03] MEDS: FLUTICASONE FUROATE 200MCG 14 PUFFS/INHALER INH SCH (08:33)
[2020-06-03] MEDS: SERTRALINE HCL 100 MG TABLET PO SCH (08:33)
[2020-06-03] MEDS: EZETIMIBE 10 MG TABLET PO SCH (08:33)
[2020-06-03] MEDS: ASPIRIN 81 MG ECTAB PO SCH (08:33)
[2020-06-03] MEDS: PANTOprazole 40 MG TAB PO SCH (08:33)
[2020-06-03] MEDS: OMEGA-3 (PURIFIED FISH OIL) 1 GM CAP PO SCH ×2 (08:33→20:50)
--- NOTE | 2020-06-03 11:21 | Hospitalist Progress Note ---
Date of Service June 03, 2020 Assessment & Plan Admission and Anticipated Discharge Date Admission Date: May 28, 2020 The patient is a 64 y/o female with a history of previous CO and CABG in 2016, HTN, HLD, [place] on CPAP, asthma, migraines and depression who presented with L sided arm and leg weakness and found to have infarcts in R posterior frontal, R parietal, and R occipital lobes. Additionally she was found to have high grade stenosis in the R ICA now s/p R carotid endarterectomy. Embolic stroke MCA watershed area High grade stenosis in R ICA TTE showed no PFO No hx of Afib, continue telemetry monitoring while inpatient - now s/p R carotid endarterectomy (06/02) -Continue PT -ASA 81mg and Plavix 75mg x21 days followed by Plavix 75mg Right carotid artery ds - now s/p R carotid endarterectomy (06/02) Hypercholesterolemia Chol: 270, LDL: 204, HDL: 42 in the setting of statin (prava and atorva) intolerance (brain fog) -Continue Zetia 10mg PO and fish oil 1g PO BID -Consider possibility of outpatient PSK9 inhibitor HTN Outside of 24-48hr window of permissive HTN in the setting of ischemic stroke, per neuro treat HTN if SBP of 180. Hold olmesartan 5mg and Amlodipine 2.5mg Asthma Continue home albuterol, Flovent and Flonase [place] Continue home CPAP at night Depression Continue home sertraline 200mg PO Migraine Hold home sumatriptan in the setting of stroke GERD Continue home pantoprazole 40mg PO Full code heart healthy diet SCD for DVT prophy rather than Lovenox in setting of recent stroke to prevent hemorrhagic conversion Supervising Physician Co-Signing Physician Notes Resident Physician Supervision Note: I independently interviewed and examined the patient and verified the man history and physical, reviewed labs and image studies, discussed the case with the resident Dr. Hudson and agree with the findings and care plan. Ramy Zavaleta is a explained that she was doing okay today. She was having some trouble sleeping since she has normally sleeps on her right side. She did bring up that her throat was a little dry. She had no questions or concerns after our discussion. Review of Systems Review of Systems: Constitutional: denies fevers, chills Cardiac: denies chest pain, palpitations GI: denies nausea, vomiting, constipation, diarrhea Pulm: denies cough, shortness of breath Physical Exam Constitutional: WD/WN, vitals as above ENMT: external ear and nose normal, oropharynx normal Neck: right neck with post endarterectomy incision wound, ecchymosis, c/d/i Respiratory: normal respiratory effort, lungs clear to auscultation Cardiovascular: RRR, no murmur, no edema Gastrointestinal (Abdomen): - soft, nttp - decreased bowel sounds Psychiatric: Orientation: alert Affect: euthymic affect Results & Data Results & Data ([facility]) Vital Signs (Past 12 Hours) Vital Signs Temp Pulse Pulse Resp BP BP Pulse Ox 06/03/20 09:51 36.3 C L 60 61 18 148/74 H 97 06/03/20 07:56 60 06/03/20 07:00 67 17 144/77 H 100 06/03/20 06:00 64 12 140/78 99 06/03/20 05:30 76 15 134/63 97 06/03/20 05:00 70 15 125/54 L 98 06/03/20 04:30 67 15 124/79 98 06/03/20 04:00 36.8 C 76 18 127/60 95 06/03/20 03:30 77 17 117/62 93 06/03/20 03:00 71 17 116/54 L 96 06/03/20 02:30 70 15 121/56 L 98 06/03/20 02:00 68 16 123/61 98 06/03/20 01:30 63 14 139/73 99 06/03/20 01:00 72 21 156/86 H 98 06/03/20 00:30 76 17 108/64 96 06/03/20 00:00 36.7 C 76 21 103/55 L 94 06/02/20 23:30 82 16 109/56 L 96 CBC Results Results Complete Blood Count Results: RBC 3.60 M/uL (4.2-5.4) L 06/03/20 WBC 8.08 K/uL (4.8-10.8) 06/03/20 Hgb 11.2 g/dL (12.0-16.0) L 06/03/20 Hct 35.4 % (37-47) L 06/03/20 Plt Count 193 K/uL (130-400) 06/03/20 Chemistry (BMP) Results BMP Results: Sodium 141 mmol/L (136-145) 06/03/20 Potassium 3.8 mmol/L (3.5-5.1) 06/03/20 Chloride 108 mmol/L (98-107) H 06/03/20 BUN 18 mg/dl (7-18) 06/03/20 Creatinine 1.04 mg/dl (0.6-1.2) 06/03/20 Glucose 106 mg/dl (70-99) H 06/03/20 Resident Activity Tracking Resident Involvement: Resident Care Provided Care Provided: Adult [facility]
[2020-06-04] MEDS: OXYCODONE/ACETAMINOPHEN 5mg/325mg TAB PO PRN (04:50)
[2020-06-04 07:17] LABS: Basophils # (auto) 0.01 K/uL (0-0.2); Basophils % (auto) 0.1 %; Eosinophils # (auto) 0.02 K/uL (0-0.5); Eosinophils % (auto) 0.3 %; Hematocrit (blood only) 32.6 % (37-47); Hemoglobin 10.3 g/dL (12.0-16.0); Immature Granulocytes # (auto) 0.01 K/uL (0.00-0.02); Immature Granulocytes % (auto) 0.1 %; Lymphocytes # (auto) 0.98 K/uL (1.2-3.4); Lymphocytes % (auto) 12.5 %; Mean Corpuscular Hemoglobin 31.1 pg (25-34); Mean Corpuscular Hgb Conc 31.6 g/dL (32-36); Mean Corpuscular Volume 98.5 fL (80-100); Mean Platelet Volume 10.1 fL (7.4-10.4); Monocytes # (auto) 0.48 K/uL (0.11-0.59); Monocytes % (auto) 6.1 %; Neutrophils # (auto) 6.36 K/uL (1.4-6.5); Neutrophils % (auto) 80.9 %; Platelet Count 172 K/uL (130-400); RDW Coefficient of Variation 13.4 % (11.5-14.5); RDW Standard Deviation 48.1 fL (36.4-46.3); Red Blood Count 3.31 M/uL (4.2-5.4); White Blood Count 7.86 K/uL (4.8-10.8)
[2020-06-04 07:34] LABS: BUN Creatinine Ratio 13.9 (10-20); Calcium 8.7 mg/dl (8.5-10.1); Creatinine Clr Calc Pharmacy 64.5 ml/min; Est GFR (African American) 76.3; Est GFR (Non-African American) 65.8; Potassium 4.2 mmol/L (3.5-5.1)
[2020-06-04] MEDS: SERTRALINE HCL 100 MG TABLET PO SCH (08:17)
[2020-06-04] MEDS: OMEGA-3 (PURIFIED FISH OIL) 1 GM CAP PO SCH (08:17)
[2020-06-04] MEDS: FLUTICASONE FUROATE 200MCG 14 PUFFS/INHALER INH SCH (08:17)
[2020-06-04] MEDS: ASPIRIN 81 MG ECTAB PO SCH (08:17)
[2020-06-04] MEDS: CLOPIDOGREL BISULFATE 75 MG TAB PO SCH (08:18)
[2020-06-04] MEDS: EZETIMIBE 10 MG TABLET PO SCH (08:18)
[2020-06-04] MEDS: PANTOprazole 40 MG TAB PO SCH (08:18)
--- NOTE | 2020-06-04 10:25 | Surgery Progress Note ---
Date of Service June 04, 2020 Assessment & Plan (1) Status post carotid endarterectomy: R CEA site doing well. Pt doing well post op. OK for d/c from vascular stand point. Will see in office in 2 weeks. Please call if needed. Admission and Anticipated Discharge Date Admission Date: May 28, 2020 Subjective 64 yo f POD #2 after R CEA with bovine patch by Dr Up, seen in f/u today. Pt states feeling ok, just tired. Admits some discomfort in R neck, but states it is improving. Admits L arm weakness since her CVA, no worse. States eating and drinking like normal, no choking on food or drink. Was eval by speech therapy yesterday. No other new complaints. Review of Systems Review of Systems: All systems reviewed & are unremarkable except as noted in HPI & below Physical Exam Constitutional: WD/WN, vitals as above Neck: trachea midline R neck incision C/D/I, moderate local soft edema/ecchymosis. Neurologic: + focal motor deficit (L arm/hand weakness) Speech / Cognition: normal speech Results & Data ([facility]) Vital Signs (Past 12 Hours) Vital Signs Temp Pulse Pulse Resp BP BP Pulse Ox 06/04/20 08:00 70 06/04/20 07:46 36.9 C 81 16 143/74 H 91 06/04/20 04:00 36.7 C 81 18 155/75 H 91 06/04/20 02:11 65 06/03/20 23:58 36.8 C 85 20 125/63 95
--- NOTE | 2020-06-04 11:23 | XRay Report ---
XR chest 1V portable HISTORY: 64 years-old Female shortness of breath acute shortness of breath COMPARISON: CTA chest 09/25/2018 TECHNIQUE: Portable AP view of the chest FINDINGS: Cardiac silhouette is mildly enlarged. Prior median sternotomy and CABG. There is no pneumothorax, pl eural effusion, airspace consolidation or overt pulmonary edema. Degenerative changes of the shoulder s and spine. IMPRESSION: No acute process. ACT 112: Negative or not required by law. The above report was generated using voice recognition software. It may contain grammatical, syntax o r spelling errors. Electronically signed by: Emerson Pastrana M.D. 06/04/2020 11:21 AM
[2020-06-04] MEDS ORDERED: STROKE PATIENT DISCHARGE STA (14:41)
--- NOTE | 2020-06-04 14:43 | Discharge Summary ---
Date of Service June 04, 2020 Admission HPI Per Admitting Provider Ms. Zavaleta is a 64yo woman with a PMHx significant for MO with Hx of CABG, HTN, HLD not on a statin, ORVIL[place], asthma, migraines and depression who was admitted with right sided embolic strokes causing weakness on her left side. She states that she has been having a headache for the last 5 days. She has a hx of migraines so didnt think anything of it, and she has also been stressed by an alcoholic daughter. However, today she decided to go for a walk and felt dizzy afterwards so she took a nap. After waking up from her nap she notcied that her left arm was weak and she physically needed to use her other arm to move it. She denies any slurred speech, changes to vision, noted facial droop, or dysphagia at that time. She also states that upon deciding to go to the ED, she physically had to lift her left leg to put it in the car. She states that she does not want to be on a statin as though she understands the risks, the side effects are too much for her. PMHx: as above PSH: Bypass surgery in 2016 at [facility], Cholecystectomy in 2017, knee replacement in 2017, cataract surgery in 2017 Fam Hx: Mother: diabetic, Hx of MO. Father: Leukemia Social Hx: States she is a beer drinker and drinks 2 beers a day. Tells me however, that it is not a "need" but does love her beer. Quit smoking 40 years ago after smoking for 2 years. No recreational drug use. Lives at home with her in a 2 orsh[address] home. Admission Exam Per Admitting Provider General: Alert, oriented. No acute distress aying in bed Skin: No noted rashes or bruises Psych: Appropriate mood and affect Neuro: CNII_XII grossly intact, no noted facial droop, no dysarthia. pt with decreased strength in left arm and left leg. HEENT: NC/AT Chest: Nontender to palpation. CV: RRR, Normal s1, s2. No murmurs appreciated Resp: Breath sounds clear with scattered wheezes bilaterally, no increased effort of breathing. Abdomen:Protuberant, Soft, nontender. No guarding. Extremities: Trace edema in lower extremities bilaterally. Principal Diagnosis stoke carotid artery stenosis left sided weakness Asthma Discharge Exam Constitutional WD/WN, vitals as above ENMT external ear and nose normal, oropharynx normal Respiratory normal respiratory effort, lungs clear to auscultation Cardiovascular RRR, no murmur, no edema Neurologic -CN II-XII intact -Strength: RUE and RLE 5/5 throughout, LUE: 2/5 mold cooler strength, 4/5 bicep flexion, 3/5 wrist extension. Sensation intact throughout. LLE: 5/5 leg flexion at hip, sensation intact throughout. -no face palsy, no dysarthria Psychiatric Orientation: alert Affect: euthymic affect Discharge Data Allergies Allergy/AdvReac Type Severity Reaction Status Date / Time Iodinated Contrast Media Allergy Intermediate HIVES Verified 05/28/20 19:22 Sulfa (Sulfonamide Allergy Intermediate HIVES Verified 05/28/20 19:22 Antibiotics) cefuroxime Allergy Unknown HIVES Verified 05/28/20 19:22 niacin Allergy Unknown HIVES Verified 05/28/20 19:22 pollen extracts Allergy Unknown HAY FEVER Verified 05/28/20 19:22 vancomycin AdvReac Intermediate "ITCHY AND Verified 05/28/20 19:22 RED ALL OVER" SANTOS Inhibitors AdvReac Mild Cough Verified 05/28/20 19:22 ceftriaxone AdvReac Mild URTICARIA Verified 05/28/20 19:22 egg AdvReac Mild nausea Verified 05/28/20 19:22 orange AdvReac Mild upset Verified 05/28/20 19:22 stomach adhesive AdvReac Unknown TAKES SKIN Verified 05/18/20 14:01 OFF - GETS RED AND SCABBY Consultations 05/28/20 20:06 ED Decision to Admit Stat 05/28/20 20:57 Consult Case Management - Discharge Planning Routine Consult Neurology Routine 05/28/20 23:09 Consult Vascular Surgery Routine 05/29/20 09:55 Consult Cardiology Routine 06/02/20 15:30 Consult Automation Engineer Routine Procedures Performed Operation Date: 06/02/20 11:40 Actual Procedures p Right Carotid Endarterectomy with Bovine Patch(Right) - Hudson Up MD Ordered Studies 05/28/20 16:56 CT head/brain wo con Stat 05/28/20 17:21 MR angio head wo con Stat MR angio neck wo/w con Stat MR brain wo/w con Stat 05/28/20 21:06 US carotid doppler BI Urgent Hospital Course (1) Stroke due to embolism: The patient is a 64 y/o female with a history of previous MO and CABG in 2016, HTN, HLD, ORVILLE on CPAP, asthma, migraines and depression who presented with L sided arm and leg weakness and found to have infarcts in R posterior frontal, R parietal, and R occipital lobes. Additionally she was found to have high grade stenosis in the R ICA now s/p R carotid endarterectomy. Embolic stroke MCA watershed area High grade stenosis in R ICA TTE showed no PFO No hx of Afib, continue telemetry monitoring while inpatient - s/p R carotid endarterectomy (06/02) -Continue home PT -ASA 81mg and Plavix 75mg x21 days followed by Plavix 75mg Right carotid artery ds - s/p R carotid endarterectomy (06/02) Hypercholesterolemia Chol: 270, LDL: 204, HDL: 42 in the setting of statin (prava and atorva) intolerance (brain fog) -Continue Zetia 10mg PO and fish oil 1g PO BID -Consider possibility of outpatient PSK9 inhibitor HTN -BP well controlled while hospitalized -restart home blood pressure medication Asthma -Continue home albuterol, Flovent and Flonase [place]VILLE -Continue home CPAP at night Depression -Continue home sertraline 200mg PO Migraine -Held home sumatriptan in hospital given stroke GERD -Continue home pantoprazole 40mg PO (2) Asthma, mild persistent: Total Time Total Time Spent Total Time Spent (In Minutes): see attending attestation Discharge Plan Discharge Items Patient Disposition: Home - Self-Care Reason For Visit: STROKE Discharge Diagnosis: stoke Activity: Per Instructions section Non-emergency contact: Primary Care Provider Call non-emergency contact if: your symptoms worsen Follow-up/Referrals: Cliff Vaughn MD [Primary Care Provider] - 06/11/20 8:10 am (If you need to change this appointment, please call [phone].) Diet: Regular Addtl Attending Provider Instructions: Stroke You came to the hospital with left sided weakness and were found on imaging to have a stoke on your right side. We found narrowing of the vessel in your neck. Vascular surgery performed an operation to address the narrowing. You had some improvement in your left sided weakness. You will need to continue physical therapy and occupational therapy at home. Elevated lipid level You have had a elevated lipid level. We started you on a medication to help lower this. When you follow up with your primary doctor or the account collector you can discuss if there is another medication that may work for you. Shortness of breath You experienced shortness of breath while in the hospital. We did an X-ray prior to you going home which did not show any acute process. You explained that this was similar to your prior episodes of shortness of breath, and could be related to your history of asthma. Continue with your Albuterol rescue inhaler and Flovent to continue to address this. Follow up You should follow up with your primary care doctor in the next week, neurology, and with vascular surgery. Return precautions If you develop worsening symptoms including weakness, worsening shortness of breath, facial droop. Pending Studies at Discharge: No Stand-Alone Forms: [facility] [employer], Smoking Cessation Medications and DC Order Prescriptions: New clopidogrel 75 mg tablet 75 mg PO DAILY Qty: 30 RF: 0 ezetimibe 10 mg tablet 10 mg PO DAILY Qty: 30 RF: 0 omega 0-ngl-vcz-fish oil [Fish Oil] 1,200 (144-216) mg capsule 1 cap PO BID Qty: 30 RF: 0 Continued (DME) CPAP Machine Misc See Rx Instructions .ROUTE .MEDSUPPLY Qty: 1 RF: 0 nitroglycerin [Nitrostat] 0.4 mg tablet, sublingual 0.4 mg SL UD PRN (Reason: Chest Pain) Qty: 30 RF: 0 sumatriptan succinate [Imitrex] 6 mg/0.5 mL solution 0 mg subcut .USE DIRECTED. RF: 0 (DME) CPAP Supplies Misc See Dose Instructions .ROUTE .MEDSUPPLY Qty: 1 RF: 0 albuterol sulfate [ProAir HFA] 90 mcg/actuation HFA aerosol inhaler 2 puffs INH Q4H PRN (Reason: shortness of breath or wheezing) Qty: 18 RF: 5 amlodipine 2.5 mg tablet 2.5 mg PO DAILY RF: 0 olmesartan [Benicar] 5 mg tablet 5 mg PO DAILY RF: 0 lansoprazole [Prevacid 24Hr] 15 mg capsule,delayed release(DR/EC) 15 mg PO DAILY RF: 0 aspirin 81 mg Tablet,Delayed Release (Dr/Ec) 81 mg PO QAM RF: 0 fluticasone propionate [Flonase Allergy Relief] 50 mcg/actuation [place],Suspension 2 spray INTRANASAL DAILY PRN (Reason: Unknown) RF: 0 fluticasone propionate 110 mcg/actuation HFA aerosol inhaler 2 puff Inhalation BID RF: 0 cholecalciferol (vitamin D3) 5,000 unit Tablet 5,000 unit PO QAM RF: 0 sertraline 100 mg tablet 200 mg PO DAILY RF: 0 Discharge Orders: Discharge Order (Routine); Ordered 06/04/20 Ordered By: John Cast/Other Patient Handouts: Effects of a Stroke on the Brain ..., Symptoms of Stroke, Stroke: Taking Medicines, Preparing Your Home After Stroke, Blockage Carotid Artery, Carotid Artery Problems: Stroke, Having Carotid Endarterectomy, After Carotid Artery Surgery: At Home, Discharge Instructions for Stroke, Risk Factors for Stroke, Stroke Regaining Movement, Stroke Prevention Eating Healthy, Stroke Prevention Activity Admission Data Admit Date/Time: 05/28/20 20:55 Attending Provider: Waleska Schneider Admit Provider: Kendra Gray Primary Care Provider: Cliff Vaughn Other Providers: Casey Walker ; Baltazar Blackwell ; Lena Hendricks ; Hudson Up ; Darian Spain ; Osman Ascencio ; Que Oates ; Jonas Parks ; Bryce Ying ; Christiano Phillips ; Jamison Mason ; Irineo Sequeira Other Interventions: Discharge Summary Assessment (RN) Last Done: 06/04/20 15:09 Supervising Physician Co-Signing Physician Notes Resident Physician Supervision Note: I independently interviewed and examined the patient and verified the man history and physical, reviewed labs and image studies, discussed the case with the resident Dr. Hudson and agree with the findings and care plan. Resident Activity Tracking Resident Involvement: Resident Care Provided Care Provided: Adult Hospital Medicine CBC Results Results Complete Blood Count Results: RBC 3.31 M/uL (4.2-5.4) L 06/04/20 WBC 7.86 K/uL (4.8-10.8) 06/04/20 Hgb 10.3 g/dL (12.0-16.0) L 06/04/20 Hct 32.6 % (37-47) L 06/04/20 Plt Count 172 K/uL (130-400) 06/04/20 Chemistry ([facility]) Results [facility] Results: Sodium 140 mmol/L (136-145) 06/04/20 Potassium 4.2 mmol/L (3.5-5.1) 06/04/20 Chloride 108 mmol/L (98-107) H 06/04/20 BUN 13 mg/dl (7-18) 06/04/20 Creatinine 0.92 mg/dl (0.6-1.2) 06/04/20 Glucose 136 mg/dl (70-99) H 06/04/20
--- NOTE | 2020-06-04 15:06 | Pharmacy Report ---
Pharmacist Stroke Counseling - Date of Service June 04, 2020 - Scope: Pharmacy has been consulted to provide medication discharge counseling for this patient admitted with ischemic stroke as per the Pharmacist Discharge Counseling for Stroke Patients Protocol. - Medications on Discharge: Home Medications Medication Instructions Recorded Confirmed aspirin 81 mg PO QAM 09/25/18 05/28/20 cholecalciferol (vitamin D3) 5,000 unit PO QAM 09/25/18 05/28/20 fluticasone propionate [Flonase 2 spray INTRANASAL DAILY PRN 09/25/18 05/28/20 Allergy Relief] fluticasone propionate [Flovent 2 puff INHALATION BID 09/25/18 05/28/20 HFA] nitroglycerin 0.4 mg sublingual 0.4 mg SL UD PRN #30 tab 04/29/19 05/28/20 tablet sumatriptan succinate 6 mg/0.5 mL 0 mg SUBCUT .USE DIRECTED. ml 04/29/19 05/28/20 subcutaneous solution amlodipine 2.5 mg tablet 2.5 mg PO DAILY 02/04/20 05/28/20 lansoprazole 15 mg capsule,delayed 15 mg PO DAILY 02/04/20 05/28/20 release olmesartan 5 mg tablet 5 mg PO DAILY 02/04/20 05/28/20 sertraline 100 mg tablet 200 mg PO DAILY tab 05/18/20 05/28/20 New Rx's Medication Instructions Recorded albuterol sulfate 90 mcg/actuation 2 puffs INH Q4H PRN #18 gm 04/29/19 aerosol inhaler miscellaneous medical supply #1 ea 04/29/19 CPAP Machine #1 ea 01/12/20 clopidogrel 75 mg PO DAILY #30 tab 06/04/20 ezetimibe 10 mg PO DAILY #30 tab 06/04/20 omega [id number]-fish oil [Fish Oil] 1 cap PO BID #30 cap 06/04/20 - Action: The above medications, specifically ones for stroke treatment/prophylaxis, have been reviewed in detail with the patient prior to discharge. This includes indication, common adverse reactions, drug interactions, and medication administration. Medication counseling has been employed using the teach-back method to ensure understanding. - Outcome: The patient has demonstrated understanding of the medications. Amirah manages her medications herself. She is aware to STOP Aspirin after 21 days and continue clopidogrel. Patient's will go to [employer] [facility] at pharmacy today. Thank you for allowing pharmacy to be involved in the care of this patient. Please call [phone] with any additional questions
== END 2020-06-04 16:30 | disposition home or self-care (01) | DRG 25 ==
LOC: ED 16:39 → 2S 20:55 → SUATTDRO 20:55 → 2S 21:44 → 2W 05-30 17:23 → 1E 06-02 15:34 → 2W 06-03 09:47